=== PATIENT | female | born 1965 | race African-American/Black ===

== ENCOUNTER 2017-03-12 18:03 | Emergency (ER) | payer MEDICARE | END 2017-03-12 19:00 | disposition home or self-care (01) | LOC: ERS 18:03 | DX: M54.12 Radiculopathy, cervical region (principal); E11.9 Type 2 diabetes mellitus without complications; E03.9 Hypothyroidism, unspecified; E78.5 Hyperlipidemia, unspecified; I50.9 Heart failure, unspecified; F41.9 Anxiety disorder, unspecified; Z79.899 Other long term (current) drug therapy | CPT/HCPCS: 99283 ==

== ENCOUNTER 2018-07-01 07:27 | Day surgery (SDC) | payer MEDICARE, MEDICAID ==
[2018-06-30 10:56] VITALS: BMI 25.7
[2018-07-01] MEDS ORDERED: PROPOFOL 200 MG/20 ML VIAL ONE (10:08)
[2018-07-01] MEDS ORDERED: Lidocaine 1% PF 5 ML VIAL ONE (10:08)
--- NOTE | 2018-07-01 12:15 | OP ---
DATE OF PROCEDURE: 07/01/2018 PROCEDURE PERFORMED: Colonoscopy with biopsy. PREMEDICATION: Given by Anesthesiology Department. PREPROCEDURE DIAGNOSIS: Colon screening. POSTPROCEDURE DIAGNOSES: 1. Small sigmoid polyp, 3 mm, removed with forceps. 2. Otherwise, normal colon exam. PROCEDURE IN DETAIL: Written consent was obtained prior to procedure. After adequate sedation, rectal exam was performed and was normal. The endoscope was advanced to the cecum. The quality of the bowel prep was good. The cecum, ascending colon, hepatic flexure, transverse colon, splenic flexure, descending colon all appeared normal. In the sigmoid colon, a 3 mm sessile polyp was noted and was removed with biopsy forceps. The removal was complete and the polyp was retrieved. The sigmoid, rectal vault, including retroflexion was normal. The patient tolerated the procedure well. ASSESSMENT: 1. Normal colon exam. 2. Small sigmoid polyp, removed. PLAN: Await biopsy results. Job ID: [id number]
== END 2018-07-01 12:19 | disposition home or self-care (01) ==
LOC: SDC 07:27
PROVIDERS: ATTEND Internal Medicine Gastroenterology
PROC: 0DBN8ZX Excision of Sigmoid Colon, Via Natural or Artificial Opening Endoscopic, Diagnostic (ICD-10-PCS; principal; 2018-07-01)
DX: Z12.11 Encounter for screening for malignant neoplasm of colon (principal); K63.5 Polyp of colon; F41.9 Anxiety disorder, unspecified; E11.9 Type 2 diabetes mellitus without complications; E78.00 Pure hypercholesterolemia, unspecified; E89.0 Postprocedural hypothyroidism; Z79.82 Long term (current) use of aspirin; Z79.84 Long term (current) use of oral hypoglycemic drugs; Z79.899 Other long term (current) drug therapy; Z88.6 Allergy status to analgesic agent; Z88.8 Allergy status to other drugs, medicaments and biological substances; Z95.810 Presence of automatic (implantable) cardiac defibrillator
CPT/HCPCS: 88305; J2001; J2704

== ENCOUNTER 2018-11-19 16:51 | Emergency (ER) | payer MEDICARE, MEDICAID | END 2018-11-19 18:11 | disposition home or self-care (01) | LOC: ERS 16:51 | DX: R68.84 Jaw pain (principal); E11.9 Type 2 diabetes mellitus without complications; E03.9 Hypothyroidism, unspecified; E78.5 Hyperlipidemia, unspecified; I50.9 Heart failure, unspecified; F41.9 Anxiety disorder, unspecified; Z79.899 Other long term (current) drug therapy | CPT/HCPCS: 99283 ==

== ENCOUNTER 2019-07-21 12:57 | Emergency (ER) | payer MEDICARE, MEDICAID ==
[2019-07-21 13:53] LABS: #Basophils 0.1 thou/uL (0.0-0.2); #Eosinphils 0.3 thou/uL (0.0-0.7); #Lymphocytes 2.7 thou/uL (1.20-3.40); #Monocytes 0.6 thou/uL (0.11-0.59); %Basophils 1.6 % (0.0-1.0); %Eosinophils 3.5 % (0.0-10.0); %Lymphocytes 30.9 % (21.0-51.0); %Monocytes 7.2 % (0.0-10.0); %Neutrophils 56.9 % (42.0-75.0); Hemoglobin 12.8 g/dL (12.0-16.0); Mean Corpuscular HGB CONC 33.9 g/dL (32.0-36.0); Mean Corpuscular Hemoglobin 30.1 pg (27.0-31.0); Mean Corpuscular Volume 88.7 fL (78.0-98.0); Mean Platelet Volume 7.7 fL (7.4-10.4); Platelet Count 318 thou/uL (130-400); RBC Distribution Width 11.9 % (11.5-14.5); Red Blood Cell (RBC) Count 4.27 mill/uL (4.20-5.40); White Blood Cell (WBC) Count 8.7 thou/uL (4.8-10.8)
[2019-07-21 14:14] LABS: ALT (SGPT) 41 U/L (8-55); AST (SGOT) 33 U/L (5-34); Albumin 4.1 g/dL (3.5-5.0); Alkaline Phosphatase 99 U/L (40-110); Anion Gap 17 mmol/L (10-20); BUN (Urea Nitrogen) 13 mg/dL (9.8-20.1); Bilirubin, Total 0.3 mg/dL (0.2-1.2); Calc. Creatinine Clearance 0 mL/min (70-130); Calcium 9.6 mg/dL (7.8-10.44); Carbon Dioxide 23 mmol/L (22-29); Chloride 98 mmol/L (98-107); Estimated GFR-MDRD 77; Globulin 3.8 g/dL (2.4-3.5); Glucose 423 mg/dL (70-105); Potassium 4.1 mmol/L (3.5-5.1); Protein, Total 7.9 g/dL (6.0-8.3); Sodium 134 mmol/L (136-145)
[2019-07-21 14:39] LABS: Bacteria/HPF None Seen HPF (None Seen); Bilirubin Negative (Negative); Blood, Urine 3+ (Negative); Clarity Clear (Clear); Glucose, Urine (Dipstick) Greater than 1000 mg/dL (Negative); Leukocyte Negative Leu/uL (Negative); Nitrite Negative (Negative); Protein, Urine (Dipstick) 30 mg/dL (Neg-Trace); RBC/HPF Greater than 50 HPF (0-3); Squamous Epithelial None Seen HPF (0-3); Urobilinogen Normal mg/dL (Less than 2)
[2019-07-22 08:39] LABS: CO2 Tension (PvCO2) 15.9 mmHg (40.0-50.0)
[2019-07-22 08:40] LABS: Base Excess-Venous -2.3 mmol/L (-2.0 to 3.0); Bicarbonate (HCO3v) 16.4 mmol/L (22.0-28.0); Calcium, Ionized 0.73 mmol/L (See Comments:); Chloride 105 mmol/L (98-107); Potassium 4.1 mmol/L (3.5-5.1); T. Carbon Dioxide 16.8 mmol/L (22.0-28.0); vO2 Saturation-calc 99.9 % (60.0-85.0)
== END 2019-07-21 18:00 | disposition home or self-care (01) ==
LOC: ERS 12:57
DX: E11.65 Type 2 diabetes mellitus with hyperglycemia (principal); E03.9 Hypothyroidism, unspecified; E78.5 Hyperlipidemia, unspecified; I50.9 Heart failure, unspecified; F41.9 Anxiety disorder, unspecified; Z79.84 Long term (current) use of oral hypoglycemic drugs; Z79.891 Long term (current) use of opiate analgesic; Z79.899 Other long term (current) drug therapy
CPT/HCPCS: 36415; 36416; 80053; 81003; 81015; 82010; 82330; 82435; 82803; 84132; 84484; 85025; 93005; 96360; 96361

== ENCOUNTER 2019-07-28 11:22 | Outpatient (CLI) | payer MEDICARE, MEDICAID ==
--- NOTE | 2019-07-28 13:43 | MRI ---
MRI CERVICAL SPINE NONCONTRAST: Date: 07/28/2019 HISTORY: 53-year-old female with cervical radiculopathy, M54.12, cervicalgia. FINDINGS: Cervical spinal cord is normal in size and signal. Vertebral body heights are maintained. Loss of rose dosis with reversal of curvature. No major bone marrow signal abnormality. No high grade facet DJD at any level. No significant disc space narrowing at any level. There is no central spinal canal stenos is or neural foraminal stenosis at any level. At C5-6, sagittal images demonstrate right paracentral and right lateral small focal disc-osteophyte complex that encroaches upon the right anterior aspect of the spinal canal and broadly abuts the spin al cord. No evidence of krunal nerve root impingement. At C6-7, there are moderate size left uncinate process osteophytes that minimally encroach upon the p roximal aspect of the left neural foramen. Perivertebral spaces are unremarkable. IMPRESSION: 1. Reversal of cervical curvature, which could be due to muscle spasm. 2. Minimal degenerative changes at C5-6 and C6-7. 3. Otherwise negative. POS: [facility]
== END 2019-07-28 11:23 | disposition home or self-care (01) ==
LOC: MRI 11:22
PROVIDERS: ATTEND Neurological Surgery
DX: M47.22 Other spondylosis with radiculopathy, cervical region (principal); M43.9 Deforming dorsopathy, unspecified
CPT/HCPCS: 72141

== ENCOUNTER 2019-08-11 13:58 | Outpatient (CLI) | payer MEDICARE, MEDICAID | END 2019-08-11 13:59 | disposition home or self-care (01) | LOC: DTY/OP 13:58 | PROVIDERS: ATTEND Family Medicine | DX: E11.9 Type 2 diabetes mellitus without complications (principal) | CPT/HCPCS: 97802 ==

== ENCOUNTER 2019-11-29 06:26 | Outpatient (CLI) | payer MEDICARE, MEDICAID, OTHER ==
[2019-11-29 13:50] LABS: BHCG - Serum Negative (NEGATIVE); Pregs Control Background? CLEAR/WHITE (CLR/WHITE); Pregs Control Bar Appear? YES (CONTROL BAR)
[2019-11-30 12:18] LABS: SARS-CoV-2 MS2 Positive; SARS-CoV-2 N Gene Negative; SARS-CoV-2 S Gene Negative; SARS-CoV-2 orf1ab Negative
--- NOTE | 2019-12-01 18:00 | EKG ---
Test Reason : Blood Pressure : / mmHG Vent. Rate : 058 BPM Atrial Rate : 058 BPM P-R Int : 148 ms QRS Dur : 080 ms QT Int : 412 ms P-R-T Axes : 036 025 014 degrees QTc Int : 404 ms Sinus bradycardia Nonspecific T wave abnormality Abnormal ECG When compared with ECG of 21-JUL-2019 15:38, Nonspecific T wave abnormality, worse in Lateral leads Confirmed by BRANDI BERKOWITZ (2) on 12/01/2019 6:00:16 PM Referred By: ZANE Confirmed By:BRANDI BERKOWITZ
== END 2019-11-29 06:27 | disposition home or self-care (01) ==
LOC: LABBT 06:26
PROVIDERS: ATTEND Otolaryngology Plastic Surgery within the Head & Neck
DX: Z01.818 Encounter for other preprocedural examination (principal); Z11.59 Encounter for screening for other viral diseases; J32.9 Chronic sinusitis, unspecified; J30.9 Allergic rhinitis, unspecified; J34.3 Hypertrophy of nasal turbinates; J34.2 Deviated nasal septum; J34.89 Other specified disorders of nose and nasal sinuses; M95.0 Acquired deformity of nose
CPT/HCPCS: 84703; 85014; U0003; 87635; 93005; 93010

== ENCOUNTER 2019-12-23 10:25 | Outpatient (CLI) | payer MEDICARE, MEDICAID ==
--- NOTE | 2019-12-23 13:18 | MMO ---
Bilateral MAMMO Bilat Screen [facility]. CLINICAL HISTORY: Patient is 54 years old and is seen for screening. The patient has no family history of breast cancer. The patient has no personal history of cancer. VIEWS: The views performed were: bilateral craniocaudal with tomosynthesis; bilateral mediolateral oblique with tomosynthesis; and left mediolateral oblique. FILMS COMPARED: The present examination has been compared to prior imaging studies performed at [facility] on 02/15/2008, 03/12/2013 and 12/25/2016. This study has been interpreted with the assistance of computer-aided detection. MAMMOGRAM FINDINGS: The breasts are extremely dense, which may lower the sensitivity of mammography. There are no suspicious masses, suspicious calcifications, or new areas of architectural distortion. IMPRESSION: THERE IS NO MAMMOGRAPHIC EVIDENCE OF MALIGNANCY. A ROUTINE FOLLOW-UP MAMMOGRAM IN 1 YEAR IS RECOMMENDED. THE RESULTS OF THIS EXAM WERE SENT TO THE PATIENT. ACR BI-RADS Category 1 - Negative MAMMOGRAPHY NOTE: 1. A negative mammogram report should not delay a biopsy if a dominant of clinically suspicious mass is present. 2. Approximately 10% to 15% of breast cancers are not detected by mammography. 3. Adenosis and dense breasts may obscure an underlying neoplasm. Reported by: PRIYANKA FAROOQ MD Electonically Signed: [id number]
== END 2019-12-23 10:26 | disposition home or self-care (01) ==
LOC: BICMAMMO 10:25
PROVIDERS: ATTEND Family Medicine
DX: Z12.31 Encounter for screening mammogram for malignant neoplasm of breast (principal)
CPT/HCPCS: 77063; 77067

== ENCOUNTER 2020-01-21 07:21 | Outpatient (CLI) | payer MEDICARE, MEDICAID, OTHER ==
[2020-01-21 10:26] LABS: Hemoglobin 12.6 g/dL (12.0-16.0); Mean Corpuscular Volume 93.9 fL (78.0-98.0); Platelet Count 325 thou/uL (130-400); RBC Distribution Width 12.2 % (11.5-14.5); Red Blood Cell (RBC) Count 4.06 mill/uL (4.20-5.40); White Blood Cell (WBC) Count 10.3 thou/uL (4.8-10.8)
[2020-01-21 12:57] LABS: Anion Gap 14 mmol/L (10-20); BUN (Urea Nitrogen) 11 mg/dL (9.8-20.1); Calc. Creatinine Clearance 0 mL/min (70-130); Calcium 9.2 mg/dL (7.8-10.44); Carbon Dioxide 24 mmol/L (22-29); Chloride 105 mmol/L (98-107); Estimated GFR-MDRD Greater than 90; Glucose 165 mg/dL (70-105); Sodium 139 mmol/L (136-145)
--- NOTE | 2020-01-21 16:45 | EKG ---
Test Reason : PREOP Blood Pressure : / mmHG Vent. Rate : 060 BPM Atrial Rate : 060 BPM P-R Int : 156 ms QRS Dur : 082 ms QT Int : 390 ms P-R-T Axes : 056 056 024 degrees QTc Int : 390 ms Normal sinus rhythm Low voltage QRS Nonspecific T wave abnormality Abnormal ECG No previous ECGs available Confirmed by DR. Flory MARTÍNEZ ([id number]) on 01/21/2020 4:45:26 PM Referred By: Velasquez DEGROOT Confirmed By:DR. Flory MARTÍNEZ
[2020-01-21 16:59] LABS: SARS-CoV-2 MS2 Positive; SARS-CoV-2 N Gene Negative; SARS-CoV-2 S Gene Negative; SARS-CoV-2 by NAA Not Detected (NotDetected); SARS-CoV-2 orf1ab Negative
== END 2020-01-21 07:22 | disposition home or self-care (01) ==
LOC: LABBT 07:21
PROVIDERS: ATTEND Otolaryngology Plastic Surgery within the Head & Neck
DX: Z01.818 Encounter for other preprocedural examination (principal); Z20.828 Contact with and (suspected) exposure to other viral communicable diseases; J32.9 Chronic sinusitis, unspecified; J30.9 Allergic rhinitis, unspecified; J34.3 Hypertrophy of nasal turbinates; J34.2 Deviated nasal septum; J34.89 Other specified disorders of nose and nasal sinuses; M95.0 Acquired deformity of nose
CPT/HCPCS: 80048; 85027; 93005; U0003; 87635; 93010

== ENCOUNTER 2020-01-26 06:19 | Day surgery (SDC) | payer MEDICARE, MEDICAID ==
[2020-01-20 13:17] VITALS: BMI 26.6
[2020-01-26] MEDS ORDERED: AFRIN NASAL MIST 15 ML BOT ONE ×2 (06:58→08:08)
[2020-01-26] MEDS ORDERED: Lidocaine 1% w/Epinephrine 1:100K 20 ML VIAL ONE (08:08)
[2020-01-26] MEDS ORDERED: Bacitracin Zinc Ointment 30 gm TUBE ONE (08:08)
[2020-01-26] MEDS ORDERED: Midazolam HCl 2 mg/2 ml Vial ONE (08:09)
[2020-01-26] MEDS ORDERED: Fentanyl 100 MCG/2 ML VIAL ONE (08:09)
[2020-01-26] MEDS ORDERED: hydrALAZINE 20 MG/ML VIAL ONE (10:08)
[2020-01-26] MEDS ORDERED: PHENYLEPHRINE-NS 100 MCG/ML 10 ML SYRINGE ONE (10:09)
[2020-01-26] MEDS ORDERED: EPHEDRINE 25 MG/5 ML SYRINGE ONE (10:09)
[2020-01-26] MEDS ORDERED: PROPOFOL 200 MG/20 ML VIAL ONE (10:09)
[2020-01-26] MEDS ORDERED: Dexamethasone 20 MG/5 ML VIAL ONE (10:09)
[2020-01-26] MEDS ORDERED: Ondansetron PF 4 MG/2 ML Vial ONE (10:09)
[2020-01-26] MEDS ORDERED: Lidocaine 1% PF 5 ML VIAL ONE (10:09)
[2020-01-26] MEDS ORDERED: Morphine 2 MG/ML VIAL ONE ×2 (10:40→11:52)
[2020-01-26] MEDS ORDERED: HYDROcodone/Acetaminophen 5/325 mg Tablet ONE (11:31)
--- NOTE | 2020-01-27 10:59 | OP ---
DATE OF PROCEDURE: 01/26/2020 PREOPERATIVE DIAGNOSES: 1. Nasal septal deviation. 2. Bilateral inferior turbinate hypertrophy. 3. Nasal obstruction. 4. Bilateral nasal valve collapse. PROCEDURES PERFORMED: 1. Nasal septoplasty. 2. Bilateral repair of nasal valve defect. 3. Bilateral inferior turbinate submucosal resection. ESTIMATED BLOOD LOSS: 20 mL. COMPLICATIONS: None. ANESTHESIA: GETA. DESCRIPTION OF PROCEDURE: The patient was taken to the operating room and placed supine on the table. General endotracheal anesthesia was obtained by the anesthesia staff. Then 1% lidocaine with 1:100,000 epinephrine was injected into the nasal septum as well as the inferior turbinates. The patient was prepped and draped in standard surgical fashion. The Afrin pledgets were then removed. A Woo incision was made on the left nasal septum. Submucoperichondrial dissection was performed bilaterally of the deviated portions of the septum, which included the maxillary crest and the crest deviation, as well as the mid portion of the septum. Cartilage and bony deviation were removed, leaving a generous caudal and dorsal strut. Any straight pieces of cartilage were then placed within the cartilage press, pressed, straightened, and then placed between the mucoperichondrial flaps, which were then closed using a 4-0 gut stitch. The inferior turbinates were then punctured with the submucosal Coblation machine, and 3 separate coblations were delivered to the anterior inferior portion of the inferior turbinates. Following this, the nasal cavity was irrigated. All debris was removed. An orogastric tube was placed. Gastric contents and Huizar splints were then placed in the nasal cavity and sutured with a 3-0 silk stitch. Following this, a small incision was made in a transcartilaginous approach to the lateral nasal wall. A subperiosteal pocket was elevated as well as a submucoperichondrial pocket with skin hooks and microdissection scissors. graft was then placed in pocket and was secured using a 5-0 chromic gut stitch. The incision was closed using a 5-0 chromic gut stitch bilaterally. The patient tolerated the procedure well. Job ID: [id number]
== END 2020-01-26 12:30 | disposition home or self-care (01) ==
LOC: SDC 06:19
PROVIDERS: ATTEND Otolaryngology Plastic Surgery within the Head & Neck
PROC: 09BM8ZZ Excision of Nasal Septum, Via Natural or Artificial Opening Endoscopic (ICD-10-PCS; principal; 2020-01-26)
PROC: 09BL8ZZ Excision of Nasal Turbinate, Via Natural or Artificial Opening Endoscopic (ICD-10-PCS; 2020-01-26)
DX: J34.2 Deviated nasal septum (principal); J34.3 Hypertrophy of nasal turbinates; J34.89 Other specified disorders of nose and nasal sinuses; M95.0 Acquired deformity of nose; J32.9 Chronic sinusitis, unspecified; J30.9 Allergic rhinitis, unspecified; I10 Essential (primary) hypertension; D64.9 Anemia, unspecified; K21.9 Gastro-esophageal reflux disease without esophagitis; Z79.82 Long term (current) use of aspirin; Z79.84 Long term (current) use of oral hypoglycemic drugs; Z79.899 Other long term (current) drug therapy
CPT/HCPCS: 30140; 30520; 30999; 82962; J2270; 36416; J0360; J1100; J2250; J2405; J2704; J3010

== ENCOUNTER 2020-04-20 07:56 | Outpatient (CLI) | payer MEDICARE, MEDICAID ==
--- NOTE | 2020-04-20 11:25 | MRI ---
MRI LUMBAR SPINE WITHOUT CONTRAST: Date: 04/20/2020 INDICATION: Lumbar radiculopathy. Low back pain. Comparison made to CT lumbar spine dated 07/16/2016. FINDINGS: Lumbar vertebra maintain normal height and alignment. Vertebral body signal is normal. Disc spaces are preserved and appear stable from the CT of 2017. L1-2: No significant disc bulge or protrusion. No central canal or foraminal stenosis. L2-3: No significant disc bulge. Mild facet arthrosis. No central canal or foraminal stenosis. L3-4: Very mild disc bulge abuts and mildly flattens the anterior thecal sac. Mild facet arthrosis. Posterior epidural fat is present. No significant central canal or foraminal stenosis. L4-5: Broad based disc bulge flattens the thecal sac. Mild to moderate facet arthrosis and hypertrop hy. These changes result in mild central canal stenosis. Right foraminal stenosis due to asymmetric d isc and osteophyte complex extending into the right foraminal zone, possibly contacting the exiting r ight L4 nerve root. L5-S1: Broad based disc bulge abuts the thecal sac. Mild facet hypertrophy. Congenitally smaller the kendall sac at this level. No significant central canal stenosis. No evidence of foraminal stenosis. IMPRESSION: 1. Disc bulge seen at L4-5 and L5-S1 as described above. 2. Mild central canal stenosis and right foraminal stenosis at L4-5 as described. POS: [facility]
== END 2020-04-20 07:57 | disposition home or self-care (01) ==
LOC: MRI 07:56
DX: M54.16 Radiculopathy, lumbar region (principal); M48.8X6 Other specified spondylopathies, lumbar region; M48.8X7 Other specified spondylopathies, lumbosacral region; M48.061 Spinal stenosis, lumbar region without neurogenic claudication
CPT/HCPCS: 72148

== ENCOUNTER 2020-10-28 20:02 | Emergency (ER) | payer MEDICARE, OTHER ==
[2020-10-28] MEDS ORDERED: Dexamethasone 10 MG/ML VIAL ONE (20:21)
== END 2020-10-28 20:48 | disposition home or self-care (01) ==
LOC: ERS 20:02
DX: J30.9 Allergic rhinitis, unspecified (principal); I48.91 Unspecified atrial fibrillation; E11.9 Type 2 diabetes mellitus without complications; E03.9 Hypothyroidism, unspecified; E78.5 Hyperlipidemia, unspecified; I11.0 Hypertensive heart disease with heart failure; I50.9 Heart failure, unspecified; Z79.899 Other long term (current) drug therapy; Z79.891 Long term (current) use of opiate analgesic
CPT/HCPCS: 96372; 99283; J1100

== ENCOUNTER 2020-12-20 09:16 | Outpatient (CLI) | payer MEDICARE, MEDICAID | END 2020-12-20 09:17 | disposition home or self-care (01) | LOC: CT 09:16 | PROVIDERS: ATTEND Otolaryngology Plastic Surgery within the Head & Neck | DX: J01.90 Acute sinusitis, unspecified (principal) ==

== ENCOUNTER 2021-02-12 01:32 | Emergency (ER) | payer MEDICARE, OTHER ==
[2021-02-12] MEDS ORDERED: Dexamethasone 10 MG/ML VIAL ONE (02:03)
[2021-02-12] MEDS ORDERED: Albuterol 200 PUFF (6.7GM INHALER) ONE (02:03)
[2021-02-12 13:46] LABS: SARS-CoV-2 PCR by NAA Not Detected (NotDetected)
== END 2021-02-12 02:27 | disposition home or self-care (01) ==
LOC: ERS 01:32
DX: U07.1 COVID-19 (principal); J12.82 Pneumonia due to coronavirus disease 2019; I48.91 Unspecified atrial fibrillation; E11.9 Type 2 diabetes mellitus without complications; E03.9 Hypothyroidism, unspecified; E78.5 Hyperlipidemia, unspecified; I11.0 Hypertensive heart disease with heart failure; I50.9 Heart failure, unspecified
CPT/HCPCS: 96372; 99283; U0003; U0005; J1100

== ENCOUNTER 2021-03-01 02:23 | Emergency (ER) | payer MEDICARE, OTHER ==
[2021-03-01] MEDS ORDERED: Dexamethasone 10 MG/ML VIAL ONE (03:13)
[2021-03-01 03:45] LABS: Hemoglobin 13.4 g/dL (12.0-16.0); Mean Corpuscular HGB CONC 32.7 g/dL (32.0-36.0); Mean Corpuscular Hemoglobin 31.6 pg (27.0-31.0); Mean Corpuscular Volume 96.7 fL (78.0-98.0); RBC Distribution Width 12.2 % (11.5-14.5); Red Blood Cell (RBC) Count 4.24 mill/uL (4.20-5.40); White Blood Cell (WBC) Count 11.9 thou/uL (4.8-10.8)
[2021-03-01 04:02] LABS: #Basophils 0.1 thou/uL (0.0-0.2); #Eosinphils 1.3 thou/uL (0.0-0.7); #Lymphocytes 3.1 thou/uL (1.20-3.40); #Monocytes 0.8 thou/uL (0.11-0.59); #Neutrophils 6.6 thou/uL (1.40-6.50); %Basophils 0.7 % (0.0-1.0); %Eosinophils 10.5 % (0.0-10.0); %Lymphocytes 26.1 % (21.0-51.0); %Neutrophils 55.7 % (42.0-75.0); Mean Platelet Volume 8.2 fL (7.4-10.4); Platelet Count 325 thou/uL (130-400); Platelet Morphology Comment Appears Adequate
[2021-03-01 04:48] LABS: ALT (SGPT) 20 U/L (8-55); AST (SGOT) 18 U/L (5-34); Albumin 3.9 g/dL (3.5-5.0); Alkaline Phosphatase 190 U/L (40-110); Anion Gap 12 mmol/L (10-20); BUN (Urea Nitrogen) 14 mg/dL (9.8-20.1); Bilirubin, Total 0.2 mg/dL (0.2-1.2); Calc. Creatinine Clearance 0 mL/min (70-130); Calcium 9.3 mg/dL (7.8-10.44); Carbon Dioxide 24 mmol/L (22-29); Chloride 107 mmol/L (98-107); Globulin 3.4 g/dL (2.4-3.5); Glucose 135 mg/dL (70-105); Potassium 3.7 mmol/L (3.5-5.1); Protein, Total 7.3 g/dL (6.0-8.3); Sodium 139 mmol/L (136-145)
== END 2021-03-01 05:24 | disposition home or self-care (01) ==
LOC: ERS 02:23
DX: R06.2 Wheezing (principal); E11.9 Type 2 diabetes mellitus without complications; I48.91 Unspecified atrial fibrillation; I10 Essential (primary) hypertension; E03.9 Hypothyroidism, unspecified; E78.5 Hyperlipidemia, unspecified; I50.9 Heart failure, unspecified
CPT/HCPCS: 36415; 71045; 80053; 85025; 94640; 96374; J1100; J7620

== ENCOUNTER 2021-03-22 07:57 | Outpatient (CLI) | payer MEDICARE, OTHER | END 2021-03-22 07:58 | disposition home or self-care (01) | LOC: BICRAD 07:57 | PROVIDERS: ATTEND Family Medicine | DX: R05.9 Cough, unspecified (principal) | CPT/HCPCS: 71046 ==

== ENCOUNTER 2021-03-30 15:43 | Emergency (ER) | payer MEDICARE, MEDICAID ==
[2021-03-30] MEDS ORDERED: Dexamethasone 4 MG TAB ONE (16:11)
[2021-03-30 16:47] LABS: #Basophils 0.1 thou/uL (0.0-0.2); #Eosinphils 2.2 thou/uL (0.0-0.7); #Lymphocytes 3.3 thou/uL (1.20-3.40); #Monocytes 0.7 thou/uL (0.11-0.59); #Neutrophils 4.5 thou/uL (1.40-6.50); %Basophils 1.2 % (0.0-1.0); %Eosinophils 20.2 % (0.0-10.0); %Lymphocytes 30.7 % (21.0-51.0); %Monocytes 6.4 % (0.0-10.0); %Neutrophils 41.5 % (42.0-75.0); Hemoglobin 13.4 g/dL (12.0-16.0); Mean Corpuscular HGB CONC 32.7 g/dL (32.0-36.0); Mean Corpuscular Hemoglobin 31.4 pg (27.0-31.0); Mean Corpuscular Volume 96.3 fL (78.0-98.0); Mean Platelet Volume 6.9 fL (7.4-10.4); Platelet Count 337 thou/uL (130-400); RBC Distribution Width 12.3 % (11.5-14.5); Red Blood Cell (RBC) Count 4.26 mill/uL (4.20-5.40); White Blood Cell (WBC) Count 10.8 thou/uL (4.8-10.8)
[2021-03-30 17:10] LABS: Anion Gap 13 mmol/L (10-20); BUN (Urea Nitrogen) 19 mg/dL (9.8-20.1); Calc. Creatinine Clearance 0 mL/min (70-130); Calcium 9.6 mg/dL (7.8-10.44); Carbon Dioxide 25 mmol/L (22-29); Chloride 105 mmol/L (98-107); Glucose 88 mg/dL (70-105); Potassium 3.8 mmol/L (3.5-5.1); Sodium 139 mmol/L (136-145)
[2021-03-30] MEDS ORDERED: HYDROmorphone 0.5 MG/0.5 ML SYRINGE ONE ×2 (17:59→18:02)
== END 2021-03-30 18:30 | disposition home or self-care (01) ==
LOC: ERS 15:43
DX: D72.10 Eosinophilia, unspecified (principal); R05.9 Cough, unspecified; I48.91 Unspecified atrial fibrillation; I11.0 Hypertensive heart disease with heart failure; I50.9 Heart failure, unspecified; E11.9 Type 2 diabetes mellitus without complications; E03.9 Hypothyroidism, unspecified; E78.5 Hyperlipidemia, unspecified; Z79.899 Other long term (current) drug therapy
CPT/HCPCS: 36415; 71046; 80048; 83880; 84484; 85025; 93005; 94640; J1170; J8540

== ENCOUNTER 2021-04-02 10:46 | Outpatient (CLI) | payer MEDICARE, MEDICAID | END 2021-04-02 10:47 | disposition home or self-care (01) | LOC: CTENTCT 10:46 | PROVIDERS: ATTEND Otolaryngology Plastic Surgery within the Head & Neck | DX: J32.9 Chronic sinusitis, unspecified (principal) | CPT/HCPCS: 70486 ==

== ENCOUNTER 2021-06-16 11:42 | Emergency (ER) | payer MEDICARE, OTHER, MEDICAID ==
[2021-06-16 18:41] LABS: SARS-CoV-2 PCR by NAA Not Detected (NotDetected)
== END 2021-06-16 14:31 | disposition home or self-care (01) ==
LOC: ERS 11:42
DX: J06.9 Acute upper respiratory infection, unspecified (principal); J02.9 Acute pharyngitis, unspecified; Z20.822 Contact with and (suspected) exposure to COVID-19
CPT/HCPCS: 99283; U0003; U0005

== ENCOUNTER 2021-07-08 17:16 | Emergency (ER) | payer MEDICARE, OTHER | END 2021-07-08 19:10 | disposition home or self-care (01) | LOC: ERS 17:16 | DX: J01.10 Acute frontal sinusitis, unspecified (principal); J01.00 Acute maxillary sinusitis, unspecified; I10 Essential (primary) hypertension; E78.00 Pure hypercholesterolemia, unspecified; E11.9 Type 2 diabetes mellitus without complications; E03.9 Hypothyroidism, unspecified; J45.909 Unspecified asthma, uncomplicated | CPT/HCPCS: 71045 ==

== ENCOUNTER 2021-07-11 09:53 | Outpatient (CLI) | payer MEDICARE, OTHER | END 2021-07-11 09:54 | disposition home or self-care (01) | LOC: BICMAMMO 09:53 | PROVIDERS: ATTEND Family Medicine | DX: Z12.31 Encounter for screening mammogram for malignant neoplasm of breast (principal) | CPT/HCPCS: 77063; 77067 ==

== ENCOUNTER 2021-07-26 11:35 | Outpatient (CLI) | payer MEDICARE, MEDICAID | END 2021-07-26 11:36 | disposition home or self-care (01) | LOC: CT 11:35 | PROVIDERS: ATTEND Physician Assistant Medical | DX: R10.30 Lower abdominal pain, unspecified (principal); K21.9 Gastro-esophageal reflux disease without esophagitis; K59.03 Drug induced constipation; R63.4 Abnormal weight loss; E11.65 Type 2 diabetes mellitus with hyperglycemia; K80.20 Calculus of gallbladder without cholecystitis without obstruction | CPT/HCPCS: 74177 ==

== ENCOUNTER 2021-09-05 18:04 | Emergency (ER) | payer MEDICARE, MEDICAID ==
[2021-09-05] MEDS ORDERED: Acetaminophen 500 MG TAB ONE (18:45)
[2021-09-05] MEDS ORDERED: Dexamethasone 4 MG TAB ONE (20:01)
[2021-09-05 20:27] LABS: SARS-CoV-2 NAA Rapid Test Not Detected (NotDetected)
== END 2021-09-05 20:01 | disposition home or self-care (01) ==
LOC: ERS 18:04
DX: J06.9 Acute upper respiratory infection, unspecified (principal); Z20.822 Contact with and (suspected) exposure to COVID-19; E11.9 Type 2 diabetes mellitus without complications; E03.9 Hypothyroidism, unspecified; I10 Essential (primary) hypertension; E78.00 Pure hypercholesterolemia, unspecified
CPT/HCPCS: 71045; 80048; 87804 ×2; U0002; 36415; J8540

== ENCOUNTER 2021-10-07 19:38 | Emergency (ER) | payer MEDICARE, MEDICAID ==
[2021-10-07 20:20] LABS: #Basophils 0.2 thou/uL (0.0-0.2); #Eosinphils 0.3 thou/uL (0.0-0.7); #Lymphocytes 4.4 thou/uL (1.20-3.40); #Monocytes 0.9 thou/uL (0.11-0.59); #Neutrophils 3.3 thou/uL (1.40-6.50); %Basophils 2.5 % (0.0-1.0); %Eosinophils 2.8 % (0.0-10.0); %Lymphocytes 48.5 % (21.0-51.0); %Monocytes 9.5 % (0.0-10.0); %Neutrophils 36.7 % (42.0-75.0); Hemoglobin 12.2 g/dL (12.0-16.0); Mean Corpuscular HGB CONC 33.8 g/dL (32.0-36.0); Mean Corpuscular Hemoglobin 34.3 pg (27.0-31.0); Mean Platelet Volume 6.5 fL (7.4-10.4); Platelet Count 310 thou/uL (130-400); Red Blood Cell (RBC) Count 3.55 mill/uL (4.20-5.40); White Blood Cell (WBC) Count 9.1 thou/uL (4.8-10.8)
[2021-10-07 20:53] LABS: ALT (SGPT) 20 U/L (8-55); AST (SGOT) 17 U/L (5-34); Albumin 4.1 g/dL (3.5-5.0); Alkaline Phosphatase 114 U/L (40-110); Anion Gap 14 mmol/L (10-20); BUN (Urea Nitrogen) 18 mg/dL (9.8-20.1); Bilirubin, Total 0.2 mg/dL (0.2-1.2); Calc. Creatinine Clearance 0 mL/min (70-130); Carbon Dioxide 22 mmol/L (22-29); Chloride 105 mmol/L (98-107); Globulin 3.1 g/dL (2.4-3.5); Glucose 101 mg/dL (70-105); Lipase 82 U/L (8-78); Magnesium 2.7 mg/dL (1.6-2.6); Potassium 3.7 mmol/L (3.5-5.1); Protein, Total 7.2 g/dL (6.0-8.3); Sodium 137 mmol/L (136-145)
== END 2021-10-07 22:03 | disposition home or self-care (01) ==
LOC: ERS 19:38
DX: R42 Dizziness and giddiness (principal); I10 Essential (primary) hypertension; E11.9 Type 2 diabetes mellitus without complications
CPT/HCPCS: 36415; 71045; 80053; 83690; 83735; 84484; 85025; 93005

== ENCOUNTER 2021-10-18 08:23 | Outpatient (CLI) | payer MEDICARE, MEDICAID | END 2021-10-18 08:24 | disposition home or self-care (01) | LOC: NM 08:23 | PROVIDERS: ATTEND Physician Assistant Medical | DX: R63.4 Abnormal weight loss (principal); K30 Functional dyspepsia | CPT/HCPCS: 78264; A9541 ==

== ENCOUNTER 2022-01-31 18:13 | Inpatient (IN) | payer MEDICARE, MEDICAID ==
[2022-01-31 19:05] LABS: Mean Corpuscular HGB CONC 34.5 g/dL (32.0-36.0); Mean Corpuscular Hemoglobin 34.2 pg (27.0-31.0); Mean Corpuscular Volume 99.1 fL (78.0-98.0); Mean Platelet Volume 7.3 fL (7.4-10.4); Platelet Count 320 thou/uL (130-400); RBC Distribution Width 12.5 % (11.5-14.5); Red Blood Cell (RBC) Count 3.81 mill/uL (4.20-5.40); White Blood Cell (WBC) Count 10.5 thou/uL (4.8-10.8)
[2022-01-31 19:26] LABS: ALT (SGPT) 24 U/L (8-55); AST (SGOT) 24 U/L (5-34); Albumin 4.4 g/dL (3.5-5.0); Alkaline Phosphatase 119 U/L (40-110); Anion Gap 19 mmol/L (10-20); BUN (Urea Nitrogen) 50 mg/dL (9.8-20.1); Bilirubin, Total 0.2 mg/dL (0.2-1.2); Calc. Creatinine Clearance 0 mL/min (70-130); Calcium 9.2 mg/dL (7.8-10.44); Carbon Dioxide 31 mmol/L (22-29); Chloride 93 mmol/L (98-107); Estimated GFR 34; Globulin 3.5 g/dL (2.4-3.5); Glucose 103 mg/dL (70-105); Protein, Total 7.9 g/dL (6.0-8.3)
[2022-01-31 19:27] LABS: Eosinophils 4 % (0-10); Lymphocytes 59 % (21-51); MDiff Complete? YES; Monocytes 1 % (0-10); Neutrophil 35 % (42-75); Platelet Morphology Comment Appears Adequate; RBC Morphology Normal
[2022-01-31 19:45] LABS: Potassium 2.6 mmol/L (3.5-5.1); Sodium 140 mmol/L (136-145)
[2022-01-31] MEDS ORDERED: Potassium Chloride 20 MEQ/100 ML PREMIX BAG ONE (21:00)
[2022-01-31] MEDS ORDERED: Potassium Chloride 20 MEQ TAB ONE (21:00)
[2022-01-31 23:43] LABS: Bilirubin Negative (Negative); Blood, Urine Negative (Negative); Clarity Clear (Clear); Glucose, Urine (Dipstick) Normal (Negative); Ketone, Urine Negative (Negative); Leukocyte 75 Leu/uL (Negative); Nitrite Negative (Negative); Protein, Urine (Dipstick) Negative (Neg-Trace); Specific Gravity, Urine 1.009 (1.002-1.036); Urobilinogen Normal mg/dL (Less than 2)
[2022-01-31] MEDS ORDERED: Sodium Chloride 0.9% 500 ML IV SCH (23:45)
[2022-01-31 23:52] LABS: Bacteria/HPF Rare-Few HPF (None Seen); RBC/HPF 0-3 HPF (0-3); Squamous Epithelial 0-3 HPF (0-3); WBC/HPF 0-3 HPF (0-3)
[2022-01-31] MEDS ORDERED: Bisacodyl 5 MG TAB PO PRN (23:59)
[2022-01-31] MEDS ORDERED: Senokot S 8.6-50 MG TAB PO PRN (23:59)
[2022-01-31] MEDS ORDERED: Acetaminophen 650 MG Suppository PR PRN (23:59)
[2022-01-31] MEDS ORDERED: Guaifenesin DM 100-10/5 ML UDCUP PO PRN (23:59)
[2022-01-31] MEDS ORDERED: Ondansetron ODT 4 MG TAB PO PRN (23:59)
[2022-01-31] MEDS ORDERED: Ondansetron PF 4 MG/2 ML Vial IVP PRN (23:59)
[2022-01-31] MEDS ORDERED: Acetaminophen 325 MG TAB PO PRN (23:59)
[2022-02-01] MEDS ORDERED: Potassium Chloride 20 MEQ TAB PO SCH ×2 (00:15→23:30)
[2022-02-01] MEDS ORDERED: Dextrose 50% Abboject 50 ML SYRINGE SLOW IVP PRN (00:16)
[2022-02-01] MEDS ORDERED: HumaLOG 300 UNITS/3 ML VIAL SC PRN ×2 (00:16)
[2022-02-01] MEDS ORDERED: Dextrose 5% in Water 1,000 ML IV PRN (00:16)
[2022-02-01] MEDS ORDERED: hydrALAZINE 20 MG/ML VIAL SLOW IVP PRN (00:18)
[2022-02-01 01:53] VITALS: BMI 23.4
[2022-02-01] MEDS ORDERED: tiZANidine HCl 4 MG TAB PO PRN (04:26)
[2022-02-01 05:20] LABS: Anion Gap 15 mmol/L (10-20); BUN (Urea Nitrogen) 42 mg/dL (9.8-20.1); Calc. Creatinine Clearance 58 mL/min (70-130); Calcium 9.2 mg/dL (7.8-10.44); Carbon Dioxide 31 mmol/L (22-29); Chloride 99 mmol/L (98-107); Estimated GFR 61; Glucose 87 mg/dL (70-105); Magnesium 2.4 mg/dL (1.6-2.6); Sodium 142 mmol/L (136-145)
[2022-02-01 05:23] LABS: Potassium 2.8 mmol/L (3.5-5.1)
[2022-02-01] MEDS ORDERED: Electrolyte Replacement Protocol FS PRN (06:15)
[2022-02-01] MEDS: Potassium Chloride 20 MEQ TAB PO SCH ×2 (06:36→10:05)
[2022-02-01] MEDS: Levothyroxine Sodium 25 MCG TAB PO SCH ×2 (06:36→06:38)
[2022-02-01] MEDS: Mometasone/Formoterol 200/5 60 PUFF INH SCH ×2 (07:20→19:18)
[2022-02-01] MEDS ORDERED: Carvedilol 6.25 MG TAB PO SCH ×2 (09:00)
[2022-02-01] MEDS ORDERED: Insulin Glargine 30 UNITS/0.3 ML VIAL SC SCH (09:00)
[2022-02-01] MEDS ORDERED: Sacubitril 49 MG/Valsartan 51 MG TABLET PO SCH ×3 (09:00→21:00)
[2022-02-01] MEDS: busPIRone HCl 5 MG TAB PO SCH ×2 (10:00→20:43)
[2022-02-01] MEDS: Famotidine 20 MG TAB PO SCH (10:01)
[2022-02-01] MEDS: Carvedilol 6.25 MG TAB PO SCH ×2 (10:01→20:46)
[2022-02-01] MEDS: Fluticasone Propionate Nasal Spray 16 gm Bottle NASAL SCH (10:01)
[2022-02-01] MEDS: Loratadine 10 MG TAB PO SCH (10:02)
[2022-02-01] MEDS: Pregabalin 75 MG CAP PO SCH ×3 (10:02→20:47)
[2022-02-01] MEDS: Montelukast Sodium 10 mg Tablet PO SCH (10:02)
[2022-02-01] MEDS: Topiramate 25 MG TAB PO SCH ×2 (10:03→20:49)
[2022-02-01] MEDS: HYDROcodone/Acetaminophen 10/325 mg Tablet PO PRN (13:26)
[2022-02-01 18:11] LABS: Potassium 3.5 mmol/L (3.5-5.1)
[2022-02-01] MEDS: Enoxaparin Sodium 40 MG/0.4 ML SYRINGE SC SCH (20:46)
[2022-02-01] MEDS: traZODone HCl 50 MG TAB PO SCH (20:49)
[2022-02-01] MEDS ORDERED: Atorvastatin Calcium 40 MG TAB PO SCH (21:00)
[2022-02-02 05:47] LABS: Anion Gap 16 mmol/L (10-20); BUN (Urea Nitrogen) 29 mg/dL (9.8-20.1); Calc. Creatinine Clearance 79 mL/min (70-130); Calcium 9.6 mg/dL (7.8-10.44); Carbon Dioxide 27 mmol/L (22-29); Chloride 99 mmol/L (98-107); Estimated GFR 88; Glucose 100 mg/dL (70-105); Potassium 3.5 mmol/L (3.5-5.1); Sodium 138 mmol/L (136-145)
[2022-02-02] MEDS: Levothyroxine Sodium 25 MCG TAB PO SCH (06:37)
[2022-02-02] MEDS: Mometasone/Formoterol 200/5 60 PUFF INH SCH ×2 (07:49→19:02)
[2022-02-02] MEDS ORDERED: Potassium Chloride 20 MEQ TAB PO SCH (08:15)
[2022-02-02] MEDS: busPIRone HCl 5 MG TAB PO SCH ×2 (08:59→20:15)
[2022-02-02] MEDS: Carvedilol 6.25 MG TAB PO SCH (09:00)
[2022-02-02] MEDS: Famotidine 20 MG TAB PO SCH (09:00)
[2022-02-02] MEDS: Fluticasone Propionate Nasal Spray 16 gm Bottle NASAL SCH (09:01)
[2022-02-02] MEDS: Pregabalin 75 MG CAP PO SCH ×3 (09:01→20:15)
[2022-02-02] MEDS: Loratadine 10 MG TAB PO SCH (09:01)
[2022-02-02] MEDS: Montelukast Sodium 10 mg Tablet PO SCH (09:01)
[2022-02-02] MEDS: Topiramate 25 MG TAB PO SCH ×2 (09:02→20:17)
[2022-02-02 13:26] LABS: Potassium 3.8 mmol/L (3.5-5.1)
[2022-02-02] MEDS: HYDROcodone/Acetaminophen 10/325 mg Tablet PO PRN (14:03)
[2022-02-02] MEDS: Carvedilol 3.125 MG TAB PO SCH (16:03)
[2022-02-02] MEDS: Enoxaparin Sodium 40 MG/0.4 ML SYRINGE SC SCH (20:15)
[2022-02-02] MEDS: traZODone HCl 50 MG TAB PO SCH (20:17)
[2022-02-03] MEDS: Levothyroxine Sodium 25 MCG TAB PO SCH (05:33)
[2022-02-03 08:18] LABS: Anion Gap 14 mmol/L (10-20); BUN (Urea Nitrogen) 17 mg/dL (9.8-20.1); Calc. Creatinine Clearance 83 mL/min (70-130); Calcium 9.6 mg/dL (7.8-10.44); Carbon Dioxide 28 mmol/L (22-29); Chloride 101 mmol/L (98-107); Estimated GFR 93; Glucose 112 mg/dL (70-105); Potassium 3.2 mmol/L (3.5-5.1); Sodium 140 mmol/L (136-145)
[2022-02-03] MEDS: busPIRone HCl 5 MG TAB PO SCH (08:21)
[2022-02-03] MEDS: Carvedilol 3.125 MG TAB PO SCH (08:22)
[2022-02-03] MEDS: Famotidine 20 MG TAB PO SCH (08:23)
[2022-02-03] MEDS: Montelukast Sodium 10 mg Tablet PO SCH (08:24)
[2022-02-03] MEDS: Pregabalin 75 MG CAP PO SCH (08:24)
[2022-02-03] MEDS: Loratadine 10 MG TAB PO SCH (08:24)
[2022-02-03] MEDS: Topiramate 25 MG TAB PO SCH (08:25)
[2022-02-03] MEDS: Fluticasone Propionate Nasal Spray 16 gm Bottle NASAL SCH (08:27)
[2022-02-03 08:38] LABS: Eosinophils 3 % (0-10); Lymphocytes 45 % (21-51); MDiff Complete? YES; Mean Corpuscular HGB CONC 32.7 g/dL (32.0-36.0); Mean Corpuscular Hemoglobin 33.2 pg (27.0-31.0); Monocytes 6 % (0-10); Neutrophil 45 % (42-75); Platelet Count 312 thou/uL (130-400); Platelet Morphology Comment Appears Adequate; RBC Distribution Width 12.6 % (11.5-14.5); RBC Morphology Normal; Reactive Lymphocytes 1 % (0-10); White Blood Cell (WBC) Count 7.2 thou/uL (4.8-10.8)
[2022-02-03] MEDS: HYDROcodone/Acetaminophen 10/325 mg Tablet PO PRN (10:18)
[2022-02-03] MEDS ORDERED: Potassium Chloride 20 MEQ TAB PO SCH (10:30)
[2022-02-03] MEDS: Mometasone/Formoterol 200/5 60 PUFF INH SCH (10:46)
[2022-02-03 12:45] VITALS: BP 111/67; TEMP 97.7
[2022-02-03] MEDS ORDERED: Mometasone/Formoterol 200/5 60 PUFF INH SCH (18:30)
== END 2022-02-03 14:30 | disposition home or self-care (01) | DRG 683 ==
LOC: ERS 18:13 → 2SW 22:05 → OBSVTOIN 02-02 11:22
PROVIDERS: ADMIT Internal Medicine; ATTEND Internal Medicine
DX: N17.9 Acute kidney failure, unspecified (principal); I42.8 Other cardiomyopathies; I50.22 Chronic systolic (congestive) heart failure; Z23 Encounter for immunization; Z20.822 Contact with and (suspected) exposure to COVID-19; I11.0 Hypertensive heart disease with heart failure; G43.909 Migraine, unspecified, not intractable, without status migrainosus; K21.9 Gastro-esophageal reflux disease without esophagitis; F41.9 Anxiety disorder, unspecified; E87.6 Hypokalemia; E11.610 Type 2 diabetes mellitus with diabetic neuropathic arthropathy; E78.00 Pure hypercholesterolemia, unspecified; E03.9 Hypothyroidism, unspecified; J45.20 Mild intermittent asthma, uncomplicated; E86.0 Dehydration; M79.606 Pain in leg, unspecified; T46.6X5A Adverse effect of antihyperlipidemic and antiarteriosclerotic drugs, initial encounter; Z88.5 Allergy status to narcotic agent; Z79.890 Hormone replacement therapy; Z79.51 Long term (current) use of inhaled steroids; Z79.899 Other long term (current) drug therapy; Z79.4 Long term (current) use of insulin; Z95.0 Presence of cardiac pacemaker
CPT/HCPCS: 36415; 36416; 71045; 80048; 80053; 81003; 81015; 82550; 83735; 83880; 84484; 85025; 93005; 96361; 96365; 96366; 96372; G0378; J1650; J3480; J7050; U0003; U0005

== ENCOUNTER 2022-06-05 08:09 | Outpatient (CLI) | payer MEDICARE, MEDICAID | END 2022-06-05 08:10 | disposition home or self-care (01) | LOC: RAD 08:09 | PROVIDERS: ATTEND Internal Medicine Critical Care Medicine | DX: R06.00 Dyspnea, unspecified (principal) | CPT/HCPCS: 71046 ==

== ENCOUNTER 2022-06-07 20:22 | Inpatient (IN) | payer MEDICARE, MEDICAID ==
[2022-06-07 21:26] LABS: Mean Corpuscular HGB CONC 33.5 g/dL (32.0-36.0); Mean Corpuscular Hemoglobin 34.9 pg (27.0-31.0); Platelet Count 415 10x3/uL (130-400); RBC Distribution Width 12.3 % (11.5-14.5); Red Blood Cell (RBC) Count 3.15 mill/uL (4.20-5.40)
[2022-06-07 21:34] LABS: ALT (SGPT) 25 U/L (8-55); AST (SGOT) 26 U/L (5-34); Albumin 3.7 g/dL (3.5-5.0); Alkaline Phosphatase 101 U/L (40-110); Anion Gap 14 mmol/L (10-20); BUN (Urea Nitrogen) 23 mg/dL (9.8-20.1); Bilirubin, Total 0.2 mg/dL (0.2-1.2); Calc. Creatinine Clearance 0 mL/min (70-130); Carbon Dioxide 20 mmol/L (22-29); Chloride 108 mmol/L (98-107); Estimated GFR 52; Globulin 3.3 g/dL (2.4-3.5); Potassium 3.6 mmol/L (3.5-5.1); Sodium 138 mmol/L (136-145)
[2022-06-07 21:44] LABS: Glucose 464 mg/dL (70-105)
[2022-06-07 21:49] LABS: Band 8 % (5-11); Lymphocytes 16 % (21-51); MDiff Complete? YES; Macrocytosis MODERATE=16-30 cells (100X) (0-5/hpf); Monocytes 3 % (0-10); Neutrophil 73 % (42-75); Ovalocytes SLIGHT = 2-5 cells (100X) (0-1/hpf); Platelet Morphology Comment Appears Increased; White Blood Cell (WBC) Count 21.7 10x3/uL (4.8-10.8)
[2022-06-07] MEDS ORDERED: Dexamethasone 4 mg/ml Vial ONE (21:52)
[2022-06-07] MEDS ORDERED: Magnesium 2 GM/50 ML BAG (IN WATER) ONE (21:52)
[2022-06-07] MEDS ORDERED: Potassium Chloride 20 MEQ TAB ONE (21:57)
[2022-06-07] MEDS ORDERED: Ipratropium/Albuterol 3 ML NEB ONE (22:55)
[2022-06-07 23:24] LABS: SARS-CoV-2 NAA Rapid Test Not Detected (NotDetected)
[2022-06-08] MEDS ORDERED: Acetaminophen 325 MG TAB PO PRN (00:17)
[2022-06-08] MEDS ORDERED: Calcium Carbonate 500 MG ChewTAB PO PRN (00:17)
[2022-06-08] MEDS ORDERED: Ondansetron ODT 4 MG TAB PO PRN (00:17)
[2022-06-08] MEDS ORDERED: Senokot S 8.6-50 MG TAB PO PRN (00:17)
[2022-06-08] MEDS ORDERED: Dextrose 5% in Water 1,000 ML IV PRN (00:19)
[2022-06-08] MEDS ORDERED: Dextrose 50% Abboject 50 ML SYRINGE SLOW IVP PRN (00:19)
[2022-06-08] MEDS ORDERED: Lactated Ringer's 1,000 ML IV SCH (00:30)
[2022-06-08] MEDS ORDERED: Insulin Glargine 30 UNITS/0.3 ML VIAL SC SCH (00:45)
[2022-06-08 02:24] VITALS: BMI 21.3
[2022-06-08] MEDS ORDERED: Ipratropium/Albuterol 3 ML NEB NEB PRN (03:00)
[2022-06-08] MEDS ORDERED: Ipratropium/Albuterol 3 ML NEB ONE ×2 (03:01→18:35)
[2022-06-08] MEDS: Ipratropium/Albuterol 3 ML NEB NEB SCH ×5 (03:13→22:12)
[2022-06-08 05:54] VITALS: BP 136/107
[2022-06-08] MEDS: Levothyroxine Sodium 25 MCG TAB PO SCH (07:06)
[2022-06-08 07:16] LABS: Anion Gap 10 mmol/L (10-20); BUN (Urea Nitrogen) 16 mg/dL (9.8-20.1); Calc. Creatinine Clearance 87 mL/min (70-130); Calcium 8.4 mg/dL (7.8-10.44); Carbon Dioxide 19 mmol/L (22-29); Chloride 114 mmol/L (98-107); Estimated GFR 99; Glucose 267 mg/dL (70-105); Potassium 3.9 mmol/L (3.5-5.1); Sodium 139 mmol/L (136-145)
[2022-06-08] MEDS ORDERED: methylPREDNISolone Sod Succ 40 MG VIAL IVP SCH ×2 (09:00→15:30)
[2022-06-08] MEDS ORDERED: Famotidine 20 MG TAB PO SCH (09:00)
[2022-06-08] MEDS ORDERED: Aspirin 81 mg Enteric Coated Tablet ONE (09:33)
[2022-06-08] MEDS ORDERED: Famotidine 20 MG TAB ONE (09:33)
[2022-06-08] MEDS ORDERED: methylPREDNISolone Sod Succ 40 MG VIAL ONE ×2 (09:33→16:19)
[2022-06-08] MEDS: Loratadine 10 MG TAB PO SCH (10:10)
[2022-06-08] MEDS: Montelukast Sodium 10 mg Tablet PO SCH (10:10)
[2022-06-08] MEDS: Carvedilol 3.125 MG TAB PO SCH ×2 (10:10→18:39)
[2022-06-08] MEDS: Aspirin 81 mg Enteric Coated Tablet PO SCH (10:10)
[2022-06-08] MEDS: busPIRone HCl 5 MG TAB PO SCH ×2 (10:10→21:05)
[2022-06-08] MEDS ORDERED: cefTRIAXone\\ROCEPHIN 1 GM VIAL ONE (10:26)
[2022-06-08] MEDS: cefTRIAXone\\ROCEPHIN 1 GM in Sodium Chloride 0.9% 100 ML IVPB SCH (10:30)
[2022-06-08] MEDS: Spironolactone 25 MG TAB PO SCH (11:10)
[2022-06-08] MEDS: Insulin Glargine 30 UNITS/0.3 ML VIAL SC SCH (12:54)
[2022-06-08] MEDS ORDERED: guaiFENesin/DM ER PO SCH (13:00)
[2022-06-08 14:44] LABS: Actual Bicarbonate (HCO3a) 19.5 mEq/L (22-28); Analyzer IN Cardio ER; Base Excess (BEa) -3.3 mEq/L (-2.0 to +3.0); Calcium, Ionized (arterial) 1.21 mmol/L (1.12-1.30); Carboxyhemoglobin (COHb) 0.2 gm% (0.0-3.0); Hemoglobin (Hb) 11.3 g/dL (12.0-16.0); Potassium - ABG Lab 3.99 mmol/L (3.70-5.30); pH, Arterial 7.46 (7.35-7.45)
[2022-06-08 14:46] LABS: O2 Tension (PaO2), arterial 57.6 mmHg (80.0-100.0)
[2022-06-08 14:47] LABS: Puncture Site LBA
[2022-06-08] MEDS: Azithromycin 500 MG in Sodium Chloride 0.9% 250 ML 250 ML IVPB SCH (14:50)
[2022-06-08] MEDS ORDERED: Azithromycin 500 MG VIAL ONE (14:50)
[2022-06-08] MEDS ORDERED: Insulin Regular 300 UNITS/3 ML VIAL ONE (14:51)
[2022-06-08] MEDS: HumaLOG 300 UNITS/3 ML VIAL SC PRN (17:30)
[2022-06-08] MEDS: guaiFENesin/DM ER PO SCH (21:03)
[2022-06-08] MEDS: Atorvastatin Calcium 40 MG TAB PO SCH (21:03)
[2022-06-09] MEDS: methylPREDNISolone Sod Succ 40 MG VIAL IVP SCH ×4 (00:56→21:42)
[2022-06-09] MEDS: Ipratropium/Albuterol 3 ML NEB NEB SCH ×6 (02:59→22:05)
[2022-06-09] MEDS: Levothyroxine Sodium 25 MCG TAB PO SCH (05:44)
[2022-06-09] MEDS ORDERED: Furosemide 40 MG/4 ML VIAL SLOW IVP SCH (08:00)
[2022-06-09 08:24] LABS: #Lymphocytes 2.3 thou/uL (1.20-3.40); #Monocytes 0.3 thou/uL (0.11-0.59); #Neutrophils 13.6 thou/uL (1.40-6.50); %Eosinophils 0.1 % (0.0-10.0); %Monocytes 1.7 % (0.0-10.0); %Neutrophils 84.1 % (42.0-75.0); Hemoglobin 10.6 g/dL (12.0-16.0); Mean Corpuscular HGB CONC 33.9 g/dL (32.0-36.0); Mean Corpuscular Hemoglobin 35.2 pg (27.0-31.0); Mean Platelet Volume 7.1 fL (7.4-10.4); Platelet Count 414 10x3/uL (130-400); RBC Distribution Width 12.2 % (11.5-14.5); Red Blood Cell (RBC) Count 3.02 mill/uL (4.20-5.40); White Blood Cell (WBC) Count 16.1 10x3/uL (4.8-10.8)
[2022-06-09] MEDS: busPIRone HCl 5 MG TAB PO SCH ×2 (08:30→20:10)
[2022-06-09] MEDS: Montelukast Sodium 10 mg Tablet PO SCH (08:30)
[2022-06-09] MEDS: Aspirin 81 mg Enteric Coated Tablet PO SCH (08:30)
[2022-06-09] MEDS: cefTRIAXone\\ROCEPHIN 1 GM in Sodium Chloride 0.9% 100 ML IVPB SCH (08:31)
[2022-06-09] MEDS: Carvedilol 3.125 MG TAB PO SCH ×2 (08:31→18:03)
[2022-06-09] MEDS: guaiFENesin/DM ER PO SCH ×2 (08:31→20:10)
[2022-06-09] MEDS: Spironolactone 25 MG TAB PO SCH (08:31)
[2022-06-09] MEDS: Insulin Glargine 30 UNITS/0.3 ML VIAL SC SCH (08:32)
[2022-06-09] MEDS: Loratadine 10 MG TAB PO SCH (08:38)
[2022-06-09 08:45] LABS: Anion Gap 11 mmol/L (10-20); BUN (Urea Nitrogen) 16 mg/dL (9.8-20.1); Calc. Creatinine Clearance 96 mL/min (70-130); Calcium 9.2 mg/dL (7.8-10.44); Carbon Dioxide 21 mmol/L (22-29); Chloride 110 mmol/L (98-107); Estimated GFR 103; Glucose 194 mg/dL (70-105); Potassium 3.9 mmol/L (3.5-5.1); Sodium 138 mmol/L (136-145)
[2022-06-09] MEDS: HumaLOG 300 UNITS/3 ML VIAL SC PRN ×2 (12:25→20:13)
[2022-06-09] MEDS: Furosemide 40 MG/4 ML VIAL SLOW IVP SCH (14:07)
[2022-06-09] MEDS: Azithromycin 500 MG in Sodium Chloride 0.9% 250 ML 250 ML IVPB SCH (14:07)
[2022-06-09] MEDS: Mometasone/Formoterol 200/5 60 PUFF INH SCH (18:32)
[2022-06-09] MEDS: Atorvastatin Calcium 40 MG TAB PO SCH (20:09)
[2022-06-10] MEDS: Ipratropium/Albuterol 3 ML NEB NEB SCH ×6 (02:51→22:30)
[2022-06-10 04:52] LABS: Hemoglobin 10.6 g/dL (12.0-16.0); Mean Corpuscular HGB CONC 35.5 g/dL (32.0-36.0); Mean Corpuscular Hemoglobin 36.7 pg (27.0-31.0); Mean Platelet Volume 7.2 fL (7.4-10.4); Platelet Count 456 10x3/uL (130-400); RBC Distribution Width 12.1 % (11.5-14.5); Red Blood Cell (RBC) Count 2.89 mill/uL (4.20-5.40); White Blood Cell (WBC) Count 17.8 10x3/uL (4.8-10.8)
[2022-06-10 04:56] LABS: Anion Gap 12 mmol/L (10-20); BUN (Urea Nitrogen) 24 mg/dL (9.8-20.1); Calc. Creatinine Clearance 92 mL/min (70-130); Calcium 9.3 mg/dL (7.8-10.44); Carbon Dioxide 25 mmol/L (22-29); Chloride 106 mmol/L (98-107); Estimated GFR 99; Glucose 189 mg/dL (70-105); Potassium 3.1 mmol/L (3.5-5.1); Sodium 140 mmol/L (136-145)
[2022-06-10 05:33] LABS: Burr Cells SLIGHT = 2-5 cells (100X) (0-1/hpf); Lymphocytes 29 % (21-51); MDiff Complete? YES; Macrocytosis MODERATE=16-30 cells (100X) (0-5/hpf); Monocytes 2 % (0-10); Neutrophil 69 % (42-75); Ovalocytes SLIGHT = 2-5 cells (100X) (0-1/hpf); Platelet Morphology Comment Appears Increased
[2022-06-10] MEDS: Furosemide 40 MG/4 ML VIAL SLOW IVP SCH ×2 (06:12→15:51)
[2022-06-10] MEDS: methylPREDNISolone Sod Succ 40 MG VIAL IVP SCH ×2 (06:12→15:51)
[2022-06-10] MEDS: Levothyroxine Sodium 25 MCG TAB PO SCH (06:12)
[2022-06-10] MEDS: HumaLOG 300 UNITS/3 ML VIAL SC PRN ×3 (06:12→21:32)
[2022-06-10] MEDS: Mometasone/Formoterol 200/5 60 PUFF INH SCH ×2 (07:32→18:25)
[2022-06-10] MEDS: Spironolactone 25 MG TAB PO SCH (09:08)
[2022-06-10] MEDS: cefTRIAXone\\ROCEPHIN 1 GM in Sodium Chloride 0.9% 100 ML IVPB SCH (09:08)
[2022-06-10] MEDS: Montelukast Sodium 10 mg Tablet PO SCH (09:08)
[2022-06-10] MEDS: Carvedilol 3.125 MG TAB PO SCH ×2 (09:09→17:08)
[2022-06-10] MEDS: Aspirin 81 mg Enteric Coated Tablet PO SCH (09:09)
[2022-06-10] MEDS: busPIRone HCl 5 MG TAB PO SCH ×2 (09:09→21:27)
[2022-06-10] MEDS: guaiFENesin/DM ER PO SCH ×2 (09:09→21:28)
[2022-06-10] MEDS: Loratadine 10 MG TAB PO SCH (09:09)
[2022-06-10] MEDS: Insulin Glargine 30 UNITS/0.3 ML VIAL SC SCH (09:10)
[2022-06-10] MEDS ORDERED: Ibuprofen 800 MG TAB PO PRN (10:35)
[2022-06-10] MEDS ORDERED: tiZANidine HCl 4 MG TAB PO PRN (10:53)
[2022-06-10] MEDS: Azithromycin 500 MG in Sodium Chloride 0.9% 250 ML 250 ML IVPB SCH (12:14)
[2022-06-10] MEDS: Potassium Chloride 20 MEQ TAB PO SCH ×2 (12:15→17:08)
[2022-06-10] MEDS: traMADol HCl 50 MG TAB PO SCH ×3 (12:15→21:29)
[2022-06-10] MEDS: Pregabalin 75 MG CAP PO SCH ×2 (15:51→21:28)
[2022-06-10] MEDS: HYDROcodone/Acetaminophen 10/325 mg Tablet PO PRN (19:34)
[2022-06-10] MEDS ORDERED: traZODone HCl 50 MG TAB PO SCH (21:00)
[2022-06-10] MEDS: Topiramate 25 MG TAB PO SCH (21:27)
[2022-06-10] MEDS: Famotidine 20 MG TAB PO SCH (21:29)
[2022-06-10] MEDS: Atorvastatin Calcium 40 MG TAB PO SCH (21:29)
[2022-06-10] MEDS: Cefuroxime 250 MG TAB PO SCH (21:29)
[2022-06-10] MEDS: Lubiprostone 24 MCG CAP PO SCH (21:29)
[2022-06-11] MEDS: Ipratropium/Albuterol 3 ML NEB NEB SCH ×4 (02:38→14:59)
[2022-06-11 03:37] LABS: Anion Gap 13 mmol/L (10-20); BUN (Urea Nitrogen) 24 mg/dL (9.8-20.1); Calc. Creatinine Clearance 88 mL/min (70-130); Calcium 9.7 mg/dL (7.8-10.44); Carbon Dioxide 26 mmol/L (22-29); Chloride 102 mmol/L (98-107); Estimated GFR 98; Glucose 224 mg/dL (70-105); Potassium 3.8 mmol/L (3.5-5.1); Sodium 137 mmol/L (136-145)
[2022-06-11 03:47] LABS: Hemoglobin 10.9 g/dL (12.0-16.0); Lymphocytes 31 % (21-51); MDiff Complete? YES; Macrocytosis SLIGHT = 6-15 cells (100X) (0-5/hpf); Mean Corpuscular HGB CONC 33.1 g/dL (32.0-36.0); Mean Platelet Volume 6.8 fL (7.4-10.4); Monocytes 11 % (0-10); Neutrophil 58 % (42-75); Platelet Count 503 10x3/uL (130-400); Platelet Morphology Comment Appears Increased; RBC Distribution Width 12.1 % (11.5-14.5); White Blood Cell (WBC) Count 16.7 10x3/uL (4.8-10.8)
[2022-06-11] MEDS: Mometasone/Formoterol 200/5 60 PUFF INH SCH (06:20)
[2022-06-11] MEDS: Levothyroxine Sodium 25 MCG TAB PO SCH (06:54)
[2022-06-11] MEDS: Furosemide 40 MG/4 ML VIAL SLOW IVP SCH (06:54)
[2022-06-11] MEDS: HYDROcodone/Acetaminophen 10/325 mg Tablet PO PRN (06:58)
[2022-06-11 07:21] VITALS: TEMP 97.6
[2022-06-11] MEDS: Cefuroxime 250 MG TAB PO SCH (08:45)
[2022-06-11] MEDS: Aspirin 81 mg Enteric Coated Tablet PO SCH (08:45)
[2022-06-11] MEDS: traMADol HCl 50 MG TAB PO SCH ×2 (08:46→13:04)
[2022-06-11] MEDS: Famotidine 20 MG TAB PO SCH (08:46)
[2022-06-11] MEDS: Pregabalin 75 MG CAP PO SCH (08:47)
[2022-06-11] MEDS: Spironolactone 25 MG TAB PO SCH (08:48)
[2022-06-11] MEDS: Loratadine 10 MG TAB PO SCH (08:48)
[2022-06-11] MEDS: Lubiprostone 24 MCG CAP PO SCH (08:49)
[2022-06-11] MEDS: Topiramate 25 MG TAB PO SCH (08:49)
[2022-06-11] MEDS: guaiFENesin/DM ER PO SCH (08:49)
[2022-06-11] MEDS: busPIRone HCl 5 MG TAB PO SCH (08:49)
[2022-06-11] MEDS: Montelukast Sodium 10 mg Tablet PO SCH (08:49)
[2022-06-11] MEDS: Carvedilol 3.125 MG TAB PO SCH (08:50)
[2022-06-11] MEDS: Insulin Glargine 30 UNITS/0.3 ML VIAL SC SCH (08:50)
[2022-06-11] MEDS ORDERED: Ezetimibe 10 MG TAB PO SCH (09:00)
[2022-06-11] MEDS ORDERED: Metolazone 5 MG TAB PO SCH (09:00)
[2022-06-11] MEDS ORDERED: Potassium Chloride 20 MEQ TAB PO SCH (09:00)
[2022-06-11] MEDS ORDERED: Metoclopramide HCl 10 MG TAB PO SCH (09:00)
[2022-06-11] MEDS ORDERED: methylPREDNISolone Sod Succ 40 MG VIAL IVP SCH (09:00)
[2022-06-11] MEDS: Azithromycin 500 MG in Sodium Chloride 0.9% 250 ML 250 ML IVPB SCH (13:03)
[2022-06-11] MEDS: HumaLOG 300 UNITS/3 ML VIAL SC PRN (13:07)
[2022-06-11] MEDS ORDERED: Furosemide 40 MG TAB PO SCH (14:00)
[2022-06-11] MEDS ORDERED: Amitriptyline HCl 10 MG TAB PO SCH (21:00)
== END 2022-06-11 14:30 | disposition home or self-care (01) | DRG 193 ==
LOC: ERS 20:22 → ERHOLD 06-08 00:23 → IMCU/EMU 06-08 00:24
PROVIDERS: ADMIT Internal Medicine; ATTEND Internal Medicine
PROC: 5A0945A Assistance with Respiratory Ventilation, 24-96 Consecutive Hours, High Flow/Velocity Cannula (ICD-10-PCS; principal; 2022-06-08)
PROC: 4B02XTZ Measurement of Cardiac Defibrillator, External Approach (ICD-10-PCS; 2022-06-09)
DX: J15.9 Unspecified bacterial pneumonia (principal); I50.23 Acute on chronic systolic (congestive) heart failure; J96.01 Acute respiratory failure with hypoxia; J45.901 Unspecified asthma with (acute) exacerbation; Z20.822 Contact with and (suspected) exposure to COVID-19; N17.9 Acute kidney failure, unspecified; I42.8 Other cardiomyopathies; I11.0 Hypertensive heart disease with heart failure; E87.6 Hypokalemia; E78.5 Hyperlipidemia, unspecified; K21.9 Gastro-esophageal reflux disease without esophagitis; I07.1 Rheumatic tricuspid insufficiency; E11.65 Type 2 diabetes mellitus with hyperglycemia; F39 Unspecified mood [affective] disorder; Z79.899 Other long term (current) drug therapy; Z79.890 Hormone replacement therapy; Z79.4 Long term (current) use of insulin; Z79.82 Long term (current) use of aspirin; Z82.49 Family history of ischemic heart disease and other diseases of the circulatory system; Z83.3 Family history of diabetes mellitus; Z95.810 Presence of automatic (implantable) cardiac defibrillator
CPT/HCPCS: 36415; 36416; 36600; 71045; 80048; 80053; 82805; 83880; 84145; 84484; 85025; 87040; 93005; 93306; 94640; 96374; 96375; J0456; J0696; J1100; J1650; J1815; J1940; J1956; J2920; J3475; J3490; J7050; J7120; J7620

== ENCOUNTER 2022-07-06 11:56 | Inpatient (IN) | payer MEDICARE, MEDICAID ==
[~2022-07-06 11:56] MED LIST: Iopamidol-370 76% 500 ML 1 ML ONE
[2022-07-06] MEDS ORDERED: Ketorolac Tromethamine 30 MG/ML VIAL ONE (12:45)
[2022-07-06 13:01] LABS: Hemoglobin 12.8 g/dL (12.0-16.0); Mean Corpuscular HGB CONC 32.5 g/dL (32.0-36.0); Mean Corpuscular Hemoglobin 33.8 pg (27.0-31.0); Mean Platelet Volume 7.9 fL (7.4-10.4); Platelet Count 434 10x3/uL (130-400); RBC Distribution Width 12.1 % (11.5-14.5); Red Blood Cell (RBC) Count 3.77 mill/uL (4.20-5.40); White Blood Cell (WBC) Count 21.2 10x3/uL (4.8-10.8)
[2022-07-06 13:15] LABS: ALT (SGPT) 18 U/L (8-55); AST (SGOT) 11 U/L (5-34); Albumin 3.7 g/dL (3.5-5.0); Alkaline Phosphatase 106 U/L (40-110); Anion Gap 24 mmol/L (10-20); BUN (Urea Nitrogen) 24 mg/dL (9.8-20.1); Bilirubin, Total 0.3 mg/dL (0.2-1.2); Calc. Creatinine Clearance 0 mL/min (70-130); Calcium 10.3 mg/dL (7.8-10.44); Carbon Dioxide 15 mmol/L (22-29); Chloride 92 mmol/L (98-107); Estimated GFR 38; Globulin 4.7 g/dL (2.4-3.5); Potassium 5.1 mmol/L (3.5-5.1); Protein, Total 8.4 g/dL (6.0-8.3); Sodium 126 mmol/L (136-145)
[2022-07-06 13:19] LABS: Glucose 603 mg/dL (70-105)
[2022-07-06 13:26] LABS: Lymphocytes 13 % (21-51); MDiff Complete? YES; Macrocytosis SLIGHT = 6-15 cells (100X) (0-5/hpf); Monocytes 10 % (0-10); Neutrophil 77 % (42-75); Platelet Morphology Comment Appears Increased; Polychromasia SLIGHT = 2-3 cells (100X) (0-2/hpf)
[2022-07-06 13:53] LABS: Actual Bicarbonate (HCO3v) 16 mEq/L (22-28); Base Excess -9.3 mEq/L (-2.0 to +3.0); Calcium, Ionized (venous) 1.14 mmol/L (1.16-1.32); Chloride (VBG) 93 mmol/L (98-106); Hemoglobin (Hb) 12.5 g/dL (11.7-16.0); Potassium (VBG) 5.37 mmol/L (3.70-5.30); Sodium 122.6 mmol/L (133-146); pH (venous) 7.32 (7.32-7.43)
[2022-07-06] MEDS ORDERED: INSULIN REGULAR IN 0.9 % NACL 100 UNIT/100 ML BAG ONE (14:52)
[2022-07-06] MEDS ORDERED: Cefepime 2 GM VIAL ONE (15:15)
[2022-07-06] MEDS ORDERED: Dextrose 50% Abboject 50 ML SYRINGE SLOW IVP PRN (16:04)
[2022-07-06] MEDS ORDERED: VANCOMYCIN IVPB PRN (16:04)
[2022-07-06] MEDS ORDERED: Electrolyte Replacement Protocol 1 EACH IVPB SCH (16:04)
[2022-07-06] MEDS ORDERED: Dextrose 5 %-0.45 % NaCl 1,000 ML IV PRN (16:04)
[2022-07-06] MEDS ORDERED: Sodium Chloride 0.9% 1,000 ML IV PRN ×3 (16:04)
[2022-07-06] MEDS ORDERED: NS 0.9% w/ 20 MEQ KCL 1,000 ML IV PRN ×2 (16:04)
[2022-07-06] MEDS ORDERED: tiZANidine HCl 4 MG TAB PO PRN (16:14)
[2022-07-06] MEDS ORDERED: Metoclopramide HCl 10 MG TAB PO PRN (16:14)
[2022-07-06] MEDS ORDERED: HUMULIN R 100 UNITS in Sodium Chloride 0.9% 100 ML IVPB SCH (16:15)
[2022-07-06] MEDS ORDERED: Vancomycin 1 GM/200 ML (FROZEN) BAG ONE (16:30)
[2022-07-06] MEDS ORDERED: Morphine 2 MG/ML VIAL SLOW IVP PRN (16:36)
[2022-07-06] MEDS: HYDROcodone/Acetaminophen 5/325 mg Tablet PO PRN (18:11)
[2022-07-06] MEDS: Carvedilol 3.125 MG TAB PO SCH (18:12)
[2022-07-06] MEDS: Nystatin 500,000 UNITS/5 ML UDCUP SSW SCH ×2 (18:14→20:18)
[2022-07-06 18:23] LABS: Anion Gap 19 mmol/L (10-20); BUN (Urea Nitrogen) 23 mg/dL (9.8-20.1); Calc. Creatinine Clearance 0 mL/min (70-130); Calcium 9.7 mg/dL (7.8-10.44); Carbon Dioxide 15 mmol/L (22-29); Chloride 101 mmol/L (98-107); Estimated GFR 52; Potassium 4.5 mmol/L (3.5-5.1); Sodium 130 mmol/L (136-145)
[2022-07-06 18:32] LABS: Glucose 479 mg/dL (70-105)
[2022-07-06 18:34] VITALS: BMI 21.6
[2022-07-06] MEDS: Ipratropium/Albuterol 3 ML NEB NEB SCH ×2 (19:32→23:30)
[2022-07-06] MEDS: Mometasone 100 MCG/PUFF (1 INHALER) INH SCH (19:32)
[2022-07-06] MEDS: Lubiprostone 8 MCG CAP PO SCH (19:51)
[2022-07-06] MEDS ORDERED: Vancomycin HCl 500 MG in Sodium Chloride 0.9% 100 ML IVPB SCH (20:15)
[2022-07-06] MEDS: Atorvastatin Calcium 40 MG TAB PO SCH (20:19)
[2022-07-06] MEDS: busPIRone HCl 10 MG TAB PO SCH (20:20)
[2022-07-06] MEDS: Famotidine 20 MG TAB PO SCH (20:20)
[2022-07-06] MEDS: Montelukast Sodium 10 mg Tablet PO SCH (20:21)
[2022-07-06] MEDS: Pregabalin 75 MG CAP PO SCH (20:21)
[2022-07-06] MEDS: Topiramate 25 MG TAB PO SCH (20:21)
[2022-07-06 20:41] LABS: SARS-CoV-2 NAA Rapid Test Not Detected (NotDetected)
[2022-07-06] MEDS: Acetaminophen 325 MG TAB PO PRN (21:50)
[2022-07-06] MEDS: D5 1/2 NS w/20 mEq KCL 1,000 ML IV PRN (22:13)
[2022-07-06 22:40] LABS: Anion Gap 16 mmol/L (10-20); BUN (Urea Nitrogen) 21 mg/dL (9.8-20.1); Calc. Creatinine Clearance 62 mL/min (70-130); Calcium 9.4 mg/dL (7.8-10.44); Carbon Dioxide 16 mmol/L (22-29); Chloride 105 mmol/L (98-107); Estimated GFR 72; Glucose 215 mg/dL (70-105); Sodium 133 mmol/L (136-145)
[2022-07-07 01:44] LABS: Anion Gap 13 mmol/L (10-20); BUN (Urea Nitrogen) 17 mg/dL (9.8-20.1); Calc. Creatinine Clearance 71 mL/min (70-130); Calcium 9.1 mg/dL (7.8-10.44); Carbon Dioxide 15 mmol/L (22-29); Chloride 107 mmol/L (98-107); Estimated GFR 85; Glucose 306 mg/dL (70-105); Potassium 4.4 mmol/L (3.5-5.1); Sodium 131 mmol/L (136-145)
[2022-07-07] MEDS: D5 1/2 NS w/20 mEq KCL 1,000 ML IV PRN ×2 (02:29→07:22)
[2022-07-07] MEDS ORDERED: Cefepime 1 GM in Sodium Chloride 0.9% 100 ML IVPB SCH (03:00)
[2022-07-07] MEDS: HYDROcodone/Acetaminophen 5/325 mg Tablet PO PRN ×3 (03:08→18:43)
[2022-07-07] MEDS: Vancomycin HCl 750 MG in Sodium Chloride 0.9% 250 ML 250 ML IVPB SCH ×2 (03:31→16:29)
[2022-07-07 04:37] LABS: Anion Gap 12 mmol/L (10-20); BUN (Urea Nitrogen) 16 mg/dL (9.8-20.1); Calc. Creatinine Clearance 74 mL/min (70-130); Calcium 8.9 mg/dL (7.8-10.44); Carbon Dioxide 16 mmol/L (22-29); Chloride 107 mmol/L (98-107); Estimated GFR 90; Glucose 218 mg/dL (70-105); Potassium 4.2 mmol/L (3.5-5.1); Sodium 131 mmol/L (136-145)
[2022-07-07] MEDS: Levothyroxine Sodium 25 MCG TAB PO SCH (05:06)
[2022-07-07] MEDS: Carvedilol 3.125 MG TAB PO SCH ×2 (07:22→16:28)
[2022-07-07] MEDS: Ipratropium/Albuterol 3 ML NEB NEB SCH ×3 (07:30→19:54)
[2022-07-07] MEDS: Mometasone 100 MCG/PUFF (1 INHALER) INH SCH ×2 (07:30→19:57)
[2022-07-07] MEDS ORDERED: Sodium Chloride 0.9% 1,000 ML IV SCH (08:00)
[2022-07-07 08:15] LABS: Hemoglobin 11.5 g/dL (12.0-16.0); Mean Corpuscular HGB CONC 32.3 g/dL (32.0-36.0); RBC Distribution Width 11.9 % (11.5-14.5); Red Blood Cell (RBC) Count 3.49 mill/uL (4.20-5.40)
[2022-07-07] MEDS ORDERED: Oxymetazoline HCl 0.05% (30 ML BOT) ONE (09:10)
[2022-07-07] MEDS ORDERED: Lidocaine 1% (PF) 30 ML VIAL ONE (09:10)
[2022-07-07] MEDS ORDERED: EPINEPHrine 1 MG/ML AMP ONE ×2 (09:10→09:21)
[2022-07-07] MEDS ORDERED: HYDROmorphone 0.5 MG/0.5 ML SYRINGE ONE (09:15)
[2022-07-07] MEDS ORDERED: fentaNYL PF 100 MCG/2 ML SYRINGE ONE (09:15)
[2022-07-07] MEDS ORDERED: Midazolam HCl 2 mg/2 ml Vial ONE (09:15)
[2022-07-07] MEDS ORDERED: PHENYLEPHRINE-NS 100 MCG/ML 10 ML SYRINGE ONE (09:32)
[2022-07-07] MEDS ORDERED: Ondansetron PF 4 MG/2 ML Vial ONE (09:32)
[2022-07-07] MEDS ORDERED: Lidocaine 1% PF 5 ML VIAL ONE (09:32)
[2022-07-07] MEDS ORDERED: Succinylcholine Chloride 100 MG/5 ML SYRINGE FS ONE (09:32)
[2022-07-07] MEDS ORDERED: PROPOFOL 200 MG/20 ML VIAL ONE (09:32)
[2022-07-07] MEDS ORDERED: Ondansetron HCl/PF 4 MG/2 ML Vial IVP PRN (09:58)
[2022-07-07 11:05] LABS: Lymphocytes 10 % (21-51); MDiff Complete? YES; Monocytes 3 % (0-10); Neutrophil 86 % (42-75); Platelet Count 404 10x3/uL (130-400); Platelet Morphology Comment Appears Increased; Reactive Lymphocytes 1 % (0-10)
[2022-07-07] MEDS ORDERED: Dextrose 50% Abboject 50 ML SYRINGE ONE (11:29)
[2022-07-07] MEDS: Insulin Glargine 30 UNITS/0.3 ML VIAL SC SCH (12:39)
[2022-07-07] MEDS ORDERED: Dextrose 5% in Water 1,000 ML IV PRN (13:13)
[2022-07-07] MEDS ORDERED: HumaLOG 300 UNITS/3 ML VIAL SC PRN (13:13)
[2022-07-07] MEDS: Cefepime 2 GM in Sodium Chloride 0.9% 100 ML IVPB SCH (14:09)
[2022-07-07] MEDS: HumaLOG 300 UNITS/3 ML VIAL SC PRN ×2 (14:13→17:52)
[2022-07-07] MEDS: busPIRone HCl 10 MG TAB PO SCH ×2 (14:21→20:25)
[2022-07-07] MEDS: Loratadine 10 MG TAB PO SCH (14:22)
[2022-07-07] MEDS: Ezetimibe 10 MG TAB PO SCH (14:22)
[2022-07-07] MEDS: Pregabalin 75 MG CAP PO SCH ×3 (14:22→20:26)
[2022-07-07] MEDS: Nystatin 500,000 UNITS/5 ML UDCUP SSW SCH ×4 (14:23→20:26)
[2022-07-07] MEDS: Aspirin 81 mg Enteric Coated Tablet PO SCH (14:23)
[2022-07-07] MEDS: Topiramate 25 MG TAB PO SCH (14:29)
[2022-07-07] MEDS: Lubiprostone 8 MCG CAP PO SCH ×2 (14:30→17:58)
[2022-07-07] MEDS: WATER IVPB SCH (16:20)
[2022-07-07] MEDS: DEXTROSE 5% IVPB SCH (16:20)
[2022-07-07] MEDS: AMBISOME IVPB SCH (16:20)
[2022-07-07] MEDS: Famotidine 20 MG TAB PO SCH (20:25)
[2022-07-07] MEDS: Montelukast Sodium 10 mg Tablet PO SCH (20:25)
[2022-07-07] MEDS: Atorvastatin Calcium 40 MG TAB PO SCH (20:25)
[2022-07-08] MEDS: Ipratropium/Albuterol 3 ML NEB NEB SCH ×4 (01:18→19:51)
[2022-07-08] MEDS: Topiramate 25 MG TAB PO SCH ×3 (01:25→22:12)
[2022-07-08] MEDS: Cefepime 2 GM in Sodium Chloride 0.9% 100 ML IVPB SCH ×2 (03:11→15:05)
[2022-07-08] MEDS: HYDROcodone/Acetaminophen 5/325 mg Tablet PO PRN ×4 (03:25→21:13)
[2022-07-08 04:36] LABS: Vancomycin, Trough 6.4 ug/mL
[2022-07-08 04:42] LABS: Anion Gap 15 mmol/L (10-20); BUN (Urea Nitrogen) 9 mg/dL (9.8-20.1); Calc. Creatinine Clearance 74 mL/min (70-130); Calcium 9.4 mg/dL (7.8-10.44); Carbon Dioxide 19 mmol/L (22-29); Chloride 103 mmol/L (98-107); Estimated GFR 90; Glucose 299 mg/dL (70-105); Potassium 3.7 mmol/L (3.5-5.1); Sodium 133 mmol/L (136-145)
[2022-07-08 05:06] LABS: Mean Corpuscular HGB CONC 33.9 g/dL (32.0-36.0); Mean Corpuscular Hemoglobin 34.8 pg (27.0-31.0); Platelet Count 461 10x3/uL (130-400); RBC Distribution Width 11.9 % (11.5-14.5); Red Blood Cell (RBC) Count 3.75 mill/uL (4.20-5.40); White Blood Cell (WBC) Count 23.6 10x3/uL (4.8-10.8)
[2022-07-08 05:07] LABS: Band 9 % (5-11); Eosinophils 2 % (0-10); Lymphocytes 15 % (21-51); MDiff Complete? YES; Macrocytosis MODERATE=16-30 cells (100X) (0-5/hpf); Monocytes 3 % (0-10); Neutrophil 71 % (42-75); Ovalocytes SLIGHT = 2-5 cells (100X) (0-1/hpf); Platelet Morphology Comment Appears Increased
[2022-07-08] MEDS: Vancomycin HCl 750 MG in Sodium Chloride 0.9% 250 ML 250 ML IVPB SCH ×3 (05:45→12:58)
[2022-07-08] MEDS: Levothyroxine Sodium 25 MCG TAB PO SCH (06:27)
[2022-07-08] MEDS: Mometasone 100 MCG/PUFF (1 INHALER) INH SCH ×2 (07:35→19:52)
[2022-07-08] MEDS: HumaLOG 300 UNITS/3 ML VIAL SC PRN ×2 (07:47→17:18)
[2022-07-08] MEDS: busPIRone HCl 10 MG TAB PO SCH ×2 (08:10→21:12)
[2022-07-08] MEDS: Ezetimibe 10 MG TAB PO SCH (08:11)
[2022-07-08] MEDS: Carvedilol 3.125 MG TAB PO SCH ×2 (08:12→17:18)
[2022-07-08] MEDS: Pregabalin 75 MG CAP PO SCH ×3 (08:13→21:13)
[2022-07-08] MEDS: Loratadine 10 MG TAB PO SCH (08:15)
[2022-07-08] MEDS: Aspirin 81 mg Enteric Coated Tablet PO SCH (08:15)
[2022-07-08] MEDS: Nystatin 500,000 UNITS/5 ML UDCUP SSW SCH ×4 (08:16→21:12)
[2022-07-08] MEDS: Insulin Glargine 30 UNITS/0.3 ML VIAL SC SCH (08:30)
[2022-07-08] MEDS: Lubiprostone 8 MCG CAP PO SCH ×2 (08:44→17:17)
[2022-07-08] MEDS: WATER IVPB SCH (14:49)
[2022-07-08] MEDS: DEXTROSE 5% IVPB SCH (14:49)
[2022-07-08] MEDS: AMBISOME IVPB SCH (14:49)
[2022-07-08] MEDS: Admixture Fee 1 EACH in Dextrose 5% in Water 10 ML IV SCH ×2 (14:51→18:28)
[2022-07-08] MEDS: Atorvastatin Calcium 40 MG TAB PO SCH (21:11)
[2022-07-08] MEDS: Montelukast Sodium 10 mg Tablet PO SCH (21:12)
[2022-07-08] MEDS: Famotidine 20 MG TAB PO SCH (21:12)
[2022-07-09] MEDS: Ipratropium/Albuterol 3 ML NEB NEB SCH ×4 (00:56→19:32)
[2022-07-09] MEDS: Levothyroxine Sodium 25 MCG TAB PO SCH (05:07)
[2022-07-09] MEDS: HYDROcodone/Acetaminophen 5/325 mg Tablet PO PRN ×4 (05:07→22:32)
[2022-07-09 05:32] LABS: Hemoglobin A1c 11.1 % (4.0-6.0)
[2022-07-09 05:50] LABS: Anion Gap 10 mmol/L (10-20); BUN (Urea Nitrogen) 10 mg/dL (9.8-20.1); Calc. Creatinine Clearance 73 mL/min (70-130); Calcium 9.2 mg/dL (7.8-10.44); Carbon Dioxide 24 mmol/L (22-29); Chloride 104 mmol/L (98-107); Estimated GFR 88; Glucose 212 mg/dL (70-105); Potassium 3.2 mmol/L (3.5-5.1); Sodium 135 mmol/L (136-145)
[2022-07-09 06:02] LABS: Band 6 % (5-11); Hemoglobin 11.6 g/dL (12.0-16.0); Hypochromia SLIGHT = 6-15 cells (100X) (0-5/hpf); Lymphocytes 21 % (21-51); MDiff Complete? YES; Macrocytosis SLIGHT = 6-15 cells (100X) (0-5/hpf); Mean Corpuscular HGB CONC 33.5 g/dL (32.0-36.0); Mean Corpuscular Hemoglobin 34.4 pg (27.0-31.0); Mean Platelet Volume 7.5 fL (7.4-10.4); Monocytes 3 % (0-10); Neutrophil 68 % (42-75); Platelet Count 459 10x3/uL (130-400); Platelet Morphology Comment Appears Increased; Reactive Lymphocytes 2 % (0-10); Red Blood Cell (RBC) Count 3.37 mill/uL (4.20-5.40); White Blood Cell (WBC) Count 19.8 10x3/uL (4.8-10.8)
[2022-07-09] MEDS: HumaLOG 300 UNITS/3 ML VIAL SC PRN ×4 (06:09→20:48)
[2022-07-09] MEDS ORDERED: Potassium Chloride 20 MEQ TAB PO SCH (08:30)
[2022-07-09] MEDS: Mometasone 100 MCG/PUFF (1 INHALER) INH SCH ×2 (08:36→19:34)
[2022-07-09] MEDS ORDERED: Dextrose 5% in Water 1,000 ML IV PRN (08:56)
[2022-07-09] MEDS ORDERED: Dextrose 50% Abboject 50 ML SYRINGE SLOW IVP PRN (08:56)
[2022-07-09] MEDS ORDERED: Famotidine 20 MG TAB PO SCH (09:15)
[2022-07-09] MEDS: Lubiprostone 8 MCG CAP PO SCH ×2 (09:50→17:15)
[2022-07-09] MEDS: Ezetimibe 10 MG TAB PO SCH (09:50)
[2022-07-09] MEDS: Nystatin 500,000 UNITS/5 ML UDCUP SSW SCH ×4 (09:51→20:49)
[2022-07-09] MEDS: Pregabalin 75 MG CAP PO SCH ×3 (09:51→20:48)
[2022-07-09] MEDS: busPIRone HCl 10 MG TAB PO SCH ×2 (09:52→20:46)
[2022-07-09] MEDS: Carvedilol 3.125 MG TAB PO SCH ×2 (09:52→17:14)
[2022-07-09] MEDS: Loratadine 10 MG TAB PO SCH (09:54)
[2022-07-09] MEDS: Aspirin 81 mg Enteric Coated Tablet PO SCH (09:54)
[2022-07-09] MEDS: Topiramate 25 MG TAB PO SCH ×2 (09:54→20:49)
[2022-07-09] MEDS: Insulin Glargine 30 UNITS/0.3 ML VIAL SC SCH ×2 (09:55→20:47)
[2022-07-09] MEDS: WATER IVPB SCH (13:43)
[2022-07-09] MEDS: AMBISOME IVPB SCH (13:43)
[2022-07-09] MEDS: DEXTROSE 5% IVPB SCH (13:43)
[2022-07-09] MEDS: Admixture Fee 1 EACH in Dextrose 5% in Water 10 ML IV SCH ×2 (13:46→16:12)
[2022-07-09 14:12] LABS: Potassium 3.6 mmol/L (3.5-5.1)
[2022-07-09] MEDS: HumaLOG 300 UNITS/3 ML VIAL SC SCH (17:58)
[2022-07-09] MEDS: Atorvastatin Calcium 40 MG TAB PO SCH (20:46)
[2022-07-09] MEDS: Famotidine 20 MG TAB PO SCH (20:47)
[2022-07-09] MEDS: Montelukast Sodium 10 mg Tablet PO SCH (20:48)
[2022-07-10] MEDS: Ipratropium/Albuterol 3 ML NEB NEB SCH ×4 (00:03→19:09)
[2022-07-10] MEDS: HYDROcodone/Acetaminophen 5/325 mg Tablet PO PRN ×4 (02:40→20:18)
[2022-07-10 06:02] LABS: Anion Gap 11 mmol/L (10-20); BUN (Urea Nitrogen) 14 mg/dL (9.8-20.1); Calc. Creatinine Clearance 64 mL/min (70-130); Calcium 9.3 mg/dL (7.8-10.44); Carbon Dioxide 25 mmol/L (22-29); Chloride 104 mmol/L (98-107); Estimated GFR 76; Glucose 110 mg/dL (70-105); Potassium 3.1 mmol/L (3.5-5.1); Sodium 137 mmol/L (136-145)
[2022-07-10 06:12] LABS: Band 1 % (5-11); Eosinophils 1 % (0-10); Hemoglobin 10.7 g/dL (12.0-16.0); Hypochromia SLIGHT = 6-15 cells (100X) (0-5/hpf); Lymphocytes 27 % (21-51); MDiff Complete? YES; Macrocytosis SLIGHT = 6-15 cells (100X) (0-5/hpf); Mean Corpuscular HGB CONC 33.6 g/dL (32.0-36.0); Mean Corpuscular Hemoglobin 34.2 pg (27.0-31.0); Mean Platelet Volume 7.2 fL (7.4-10.4); Monocytes 14 % (0-10); Neutrophil 57 % (42-75); Platelet Count 482 10x3/uL (130-400); Platelet Morphology Comment Appears Increased; RBC Distribution Width 12.1 % (11.5-14.5); Red Blood Cell (RBC) Count 3.14 mill/uL (4.20-5.40)
[2022-07-10] MEDS: Levothyroxine Sodium 25 MCG TAB PO SCH (06:28)
[2022-07-10] MEDS: Mometasone 100 MCG/PUFF (1 INHALER) INH SCH ×2 (07:56→19:09)
[2022-07-10] MEDS ORDERED: Potassium Chloride 20 MEQ TAB PO SCH (08:00)
[2022-07-10] MEDS: Lubiprostone 8 MCG CAP PO SCH ×2 (08:44→17:13)
[2022-07-10] MEDS: Ezetimibe 10 MG TAB PO SCH (08:44)
[2022-07-10] MEDS: Loratadine 10 MG TAB PO SCH (08:44)
[2022-07-10] MEDS: busPIRone HCl 10 MG TAB PO SCH ×2 (08:45→20:19)
[2022-07-10] MEDS: Carvedilol 3.125 MG TAB PO SCH ×2 (08:45→18:01)
[2022-07-10] MEDS: Topiramate 25 MG TAB PO SCH ×2 (08:45→20:20)
[2022-07-10] MEDS: Pregabalin 75 MG CAP PO SCH ×3 (08:46→20:20)
[2022-07-10] MEDS: Famotidine 20 MG TAB PO SCH ×2 (08:46→20:20)
[2022-07-10] MEDS: Aspirin 81 mg Enteric Coated Tablet PO SCH (08:46)
[2022-07-10] MEDS: Nystatin 500,000 UNITS/5 ML UDCUP SSW SCH ×4 (08:47→20:22)
[2022-07-10] MEDS: HumaLOG 300 UNITS/3 ML VIAL SC SCH ×3 (08:48→17:11)
[2022-07-10] MEDS: Insulin Glargine 30 UNITS/0.3 ML VIAL SC SCH ×2 (08:48→20:21)
[2022-07-10 12:14] LABS: Fungus Stain Final report (.)
[2022-07-10] MEDS: AMBISOME IVPB SCH (13:27)
[2022-07-10] MEDS: DEXTROSE 5% IVPB SCH (13:27)
[2022-07-10] MEDS: WATER IVPB SCH (13:27)
[2022-07-10] MEDS: HumaLOG 300 UNITS/3 ML VIAL SC PRN ×2 (17:12→20:22)
[2022-07-10] MEDS: Montelukast Sodium 10 mg Tablet PO SCH (20:19)
[2022-07-10] MEDS: Atorvastatin Calcium 40 MG TAB PO SCH (20:20)
[2022-07-11] MEDS: Ipratropium/Albuterol 3 ML NEB NEB SCH ×3 (00:17→13:44)
[2022-07-11] MEDS: HYDROcodone/Acetaminophen 5/325 mg Tablet PO PRN ×3 (02:45→22:38)
[2022-07-11] MEDS: HumaLOG 300 UNITS/3 ML VIAL SC PRN ×2 (03:31→12:11)
[2022-07-11] MEDS: Levothyroxine Sodium 25 MCG TAB PO SCH (05:22)
[2022-07-11 05:51] LABS: Anion Gap 11 mmol/L (10-20); BUN (Urea Nitrogen) 17 mg/dL (9.8-20.1); Calc. Creatinine Clearance 61 mL/min (70-130); Calcium 9.4 mg/dL (7.8-10.44); Carbon Dioxide 25 mmol/L (22-29); Chloride 104 mmol/L (98-107); Estimated GFR 71; Glucose 160 mg/dL (70-105); Potassium 3.4 mmol/L (3.5-5.1); Sodium 137 mmol/L (136-145)
[2022-07-11 06:07] LABS: Band 6 % (5-11); Hypochromia SLIGHT = 6-15 cells (100X) (0-5/hpf); Lymphocytes 32 % (21-51); MDiff Complete? YES; Macrocytosis SLIGHT = 6-15 cells (100X) (0-5/hpf); Mean Corpuscular HGB CONC 33.2 g/dL (32.0-36.0); Mean Corpuscular Hemoglobin 34.1 pg (27.0-31.0); Mean Platelet Volume 7.2 fL (7.4-10.4); Monocytes 10 % (0-10); Neutrophil 44 % (42-75); Platelet Count 519 10x3/uL (130-400); Platelet Morphology Comment Appears Increased; RBC Distribution Width 12.2 % (11.5-14.5); Reactive Lymphocytes 8 % (0-10); Red Blood Cell (RBC) Count 2.92 mill/uL (4.20-5.40)
[2022-07-11] MEDS: Mometasone 100 MCG/PUFF (1 INHALER) INH SCH ×2 (07:54→18:50)
[2022-07-11] MEDS ORDERED: Magnesium 2 GM/50 ML(in water) 2 GM in Premix Bag 1 BAG IVPB SCH (08:00)
[2022-07-11] MEDS ORDERED: Potassium Chloride 20 MEQ TAB PO SCH (08:00)
[2022-07-11] MEDS: Lubiprostone 8 MCG CAP PO SCH ×2 (08:38→16:54)
[2022-07-11] MEDS: busPIRone HCl 10 MG TAB PO SCH ×2 (08:39→20:08)
[2022-07-11] MEDS: Topiramate 25 MG TAB PO SCH ×2 (08:39→20:09)
[2022-07-11] MEDS: Aspirin 81 mg Enteric Coated Tablet PO SCH (08:39)
[2022-07-11] MEDS: Famotidine 20 MG TAB PO SCH ×2 (08:40→20:08)
[2022-07-11] MEDS: Carvedilol 3.125 MG TAB PO SCH ×2 (08:40→16:55)
[2022-07-11] MEDS: Ezetimibe 10 MG TAB PO SCH (08:40)
[2022-07-11] MEDS: Loratadine 10 MG TAB PO SCH (08:40)
[2022-07-11] MEDS: Pregabalin 75 MG CAP PO SCH ×3 (08:41→20:07)
[2022-07-11] MEDS: Insulin Glargine 30 UNITS/0.3 ML VIAL SC SCH ×2 (08:41→20:08)
[2022-07-11] MEDS: HumaLOG 300 UNITS/3 ML VIAL SC SCH ×3 (08:42→16:54)
[2022-07-11] MEDS: Nystatin 500,000 UNITS/5 ML UDCUP SSW SCH ×4 (08:48→20:07)
[2022-07-11] MEDS: AMBISOME IVPB SCH (12:10)
[2022-07-11] MEDS: WATER IVPB SCH (12:10)
[2022-07-11] MEDS: DEXTROSE 5% IVPB SCH (12:10)
[2022-07-11] MEDS ORDERED: Ipratropium/Albuterol 3 ML NEB NEB PRN (13:51)
[2022-07-11] MEDS ORDERED: Iopamidol 370 76% 100 ML VIAL ONE (14:46)
[2022-07-11] MEDS: Montelukast Sodium 10 mg Tablet PO SCH (20:08)
[2022-07-11] MEDS: Atorvastatin Calcium 40 MG TAB PO SCH (20:08)
[2022-07-12] MEDS: HYDROcodone/Acetaminophen 5/325 mg Tablet PO PRN ×2 (04:02→18:19)
[2022-07-12 05:32] LABS: #Basophils 0.1 thou/uL (0.0-0.2); #Eosinphils 0.1 thou/uL (0.0-0.7); #Lymphocytes 5.1 thou/uL (1.20-3.40); #Monocytes 2.6 thou/uL (0.11-0.59); #Neutrophils 10.6 thou/uL (1.40-6.50); %Basophils 0.4 % (0.0-1.0); %Eosinophils 0.6 % (0.0-10.0); %Lymphocytes 27.7 % (21.0-51.0); %Monocytes 14.1 % (0.0-10.0); %Neutrophils 57.2 % (42.0-75.0); Hemoglobin 9.9 g/dL (12.0-16.0); Mean Corpuscular HGB CONC 33.3 g/dL (32.0-36.0); Mean Corpuscular Hemoglobin 33.8 pg (27.0-31.0); Platelet Count 600 10x3/uL (130-400); RBC Distribution Width 12.2 % (11.5-14.5); Red Blood Cell (RBC) Count 2.92 mill/uL (4.20-5.40); White Blood Cell (WBC) Count 18.5 10x3/uL (4.8-10.8)
[2022-07-12 05:53] LABS: Anion Gap 10 mmol/L (10-20); BUN (Urea Nitrogen) 14 mg/dL (9.8-20.1); Calc. Creatinine Clearance 73 mL/min (70-130); Calcium 9.5 mg/dL (7.8-10.44); Carbon Dioxide 25 mmol/L (22-29); Chloride 105 mmol/L (98-107); Estimated GFR 89; Glucose 100 mg/dL (70-105); Potassium 3.3 mmol/L (3.5-5.1); Sodium 137 mmol/L (136-145)
[2022-07-12] MEDS: Mometasone 100 MCG/PUFF (1 INHALER) INH SCH ×2 (06:20→18:50)
[2022-07-12] MEDS: Levothyroxine Sodium 25 MCG TAB PO SCH (06:21)
[2022-07-12] MEDS ORDERED: Potassium Chloride 20 MEQ TAB PO SCH (08:00)
[2022-07-12] MEDS: Lubiprostone 8 MCG CAP PO SCH ×2 (08:27→18:20)
[2022-07-12] MEDS: Carvedilol 3.125 MG TAB PO SCH ×2 (08:28→17:23)
[2022-07-12] MEDS: Aspirin 81 mg Enteric Coated Tablet PO SCH (08:29)
[2022-07-12] MEDS: busPIRone HCl 10 MG TAB PO SCH ×2 (08:30→20:31)
[2022-07-12] MEDS: Loratadine 10 MG TAB PO SCH (08:31)
[2022-07-12] MEDS: Ezetimibe 10 MG TAB PO SCH (08:31)
[2022-07-12] MEDS: Famotidine 20 MG TAB PO SCH ×2 (08:31→20:30)
[2022-07-12] MEDS: Pregabalin 75 MG CAP PO SCH ×3 (08:32→20:32)
[2022-07-12] MEDS: Topiramate 25 MG TAB PO SCH ×2 (08:41→20:31)
[2022-07-12] MEDS ORDERED: Insulin Glargine 30 UNITS/0.3 ML VIAL SC SCH (09:00)
[2022-07-12] MEDS: HumaLOG 300 UNITS/3 ML VIAL SC SCH ×3 (09:52→18:14)
[2022-07-12] MEDS: Nystatin 500,000 UNITS/5 ML UDCUP SSW SCH ×4 (12:27→20:30)
[2022-07-12] MEDS: Acetaminophen 325 MG TAB PO PRN (12:35)
[2022-07-12] MEDS: Micafungin 100 MG in Sodium Chloride 0.9% 100 ML IVPB SCH (18:31)
[2022-07-12] MEDS: Admixture Fee 1 EACH in Dextrose 5% in Water 10 ML IV SCH (20:29)
[2022-07-12] MEDS: Montelukast Sodium 10 mg Tablet PO SCH (20:31)
[2022-07-12] MEDS: Insulin Glargine 30 UNITS/0.3 ML VIAL SC SCH (20:31)
[2022-07-12] MEDS: Atorvastatin Calcium 40 MG TAB PO SCH (20:31)
[2022-07-12] MEDS: DEXTROSE 5% IVPB SCH (23:17)
[2022-07-12] MEDS: AMBISOME IVPB SCH (23:17)
[2022-07-12] MEDS: WATER IVPB SCH (23:17)
[2022-07-13] MEDS: HYDROcodone/Acetaminophen 5/325 mg Tablet PO PRN ×4 (04:09→21:21)
[2022-07-13 06:01] LABS: Anion Gap 15 mmol/L (10-20); BUN (Urea Nitrogen) 15 mg/dL (9.8-20.1); Calc. Creatinine Clearance 74 mL/min (70-130); Calcium 9.9 mg/dL (7.8-10.44); Carbon Dioxide 22 mmol/L (22-29); Chloride 104 mmol/L (98-107); Estimated GFR 90; Glucose 183 mg/dL (70-105); Potassium 3.6 mmol/L (3.5-5.1); Sodium 137 mmol/L (136-145)
[2022-07-13] MEDS: Levothyroxine Sodium 25 MCG TAB PO SCH (06:06)
[2022-07-13] MEDS: Mometasone 100 MCG/PUFF (1 INHALER) INH SCH ×2 (06:06→17:38)
[2022-07-13] MEDS: Lubiprostone 8 MCG CAP PO SCH ×2 (09:55→17:36)
[2022-07-13] MEDS: Carvedilol 3.125 MG TAB PO SCH ×2 (09:56→17:37)
[2022-07-13] MEDS: HumaLOG 300 UNITS/3 ML VIAL SC SCH ×3 (09:56→17:36)
[2022-07-13] MEDS: Potassium Chloride 20 MEQ TAB PO SCH ×2 (09:57→17:35)
[2022-07-13] MEDS: Pregabalin 75 MG CAP PO SCH ×3 (09:58→21:17)
[2022-07-13] MEDS: Loratadine 10 MG TAB PO SCH (09:59)
[2022-07-13] MEDS: Aspirin 81 mg Enteric Coated Tablet PO SCH (09:59)
[2022-07-13] MEDS: busPIRone HCl 10 MG TAB PO SCH ×2 (09:59→21:34)
[2022-07-13] MEDS: Nystatin 500,000 UNITS/5 ML UDCUP SSW SCH ×4 (09:59→21:28)
[2022-07-13] MEDS: Ezetimibe 10 MG TAB PO SCH (10:00)
[2022-07-13] MEDS: Insulin Glargine 30 UNITS/0.3 ML VIAL SC SCH ×2 (10:00→21:14)
[2022-07-13] MEDS: Famotidine 20 MG TAB PO SCH ×2 (10:01→21:16)
[2022-07-13] MEDS: Topiramate 25 MG TAB PO SCH ×2 (10:02→21:16)
[2022-07-13] MEDS: Micafungin 100 MG in Sodium Chloride 0.9% 100 ML IVPB SCH (17:45)
[2022-07-13] MEDS: Atorvastatin Calcium 40 MG TAB PO SCH (21:16)
[2022-07-13] MEDS: Montelukast Sodium 10 mg Tablet PO SCH (21:16)
[2022-07-14] MEDS: AMBISOME IVPB SCH (00:51)
[2022-07-14] MEDS: DEXTROSE 5% IVPB SCH (00:51)
[2022-07-14] MEDS: Admixture Fee 1 EACH in Dextrose 5% in Water 10 ML IV SCH (00:51)
[2022-07-14] MEDS: WATER IVPB SCH (00:51)
[2022-07-14] MEDS: HYDROcodone/Acetaminophen 5/325 mg Tablet PO PRN ×3 (04:46→15:26)
[2022-07-14] MEDS: Levothyroxine Sodium 25 MCG TAB PO SCH (04:46)
[2022-07-14 05:55] LABS: Hemoglobin 10.1 g/dL (12.0-16.0); Mean Corpuscular HGB CONC 32.5 g/dL (32.0-36.0); Mean Corpuscular Hemoglobin 33.3 pg (27.0-31.0); Mean Platelet Volume 6.7 fL (7.4-10.4); Platelet Count 682 10x3/uL (130-400); RBC Distribution Width 12.4 % (11.5-14.5); Red Blood Cell (RBC) Count 3.04 mill/uL (4.20-5.40); White Blood Cell (WBC) Count 19.2 10x3/uL (4.8-10.8)
[2022-07-14 06:08] LABS: Anion Gap 14 mmol/L (10-20); BUN (Urea Nitrogen) 13 mg/dL (9.8-20.1); Calc. Creatinine Clearance 77 mL/min (70-130); Calcium 9.7 mg/dL (7.8-10.44); Carbon Dioxide 21 mmol/L (22-29); Chloride 108 mmol/L (98-107); Estimated GFR 95; Glucose 126 mg/dL (70-105); Magnesium 1.8 mg/dL (1.6-2.6); Potassium 3.9 mmol/L (3.5-5.1); Sodium 139 mmol/L (136-145)
[2022-07-14] MEDS: Mometasone 100 MCG/PUFF (1 INHALER) INH SCH ×2 (06:59→17:38)
[2022-07-14 07:53] LABS: Band 3 % (5-11); Eosinophils 2 % (0-10); Lymphocytes 29 % (21-51); MDiff Complete? YES; Macrocytosis SLIGHT = 6-15 cells (100X) (0-5/hpf); Monocytes 12 % (0-10); Neutrophil 50 % (42-75); Platelet Morphology Comment Appears Increased; Reactive Lymphocytes 4 % (0-10)
[2022-07-14] MEDS: Topiramate 25 MG TAB PO SCH ×2 (08:55→22:19)
[2022-07-14] MEDS: Lubiprostone 8 MCG CAP PO SCH ×2 (08:55→17:36)
[2022-07-14] MEDS: HumaLOG 300 UNITS/3 ML VIAL SC SCH ×3 (08:56→17:37)
[2022-07-14] MEDS: Insulin Glargine 30 UNITS/0.3 ML VIAL SC SCH ×2 (08:56→22:21)
[2022-07-14] MEDS: Ezetimibe 10 MG TAB PO SCH (08:57)
[2022-07-14] MEDS: busPIRone HCl 10 MG TAB PO SCH ×2 (08:57→21:29)
[2022-07-14] MEDS: Pregabalin 75 MG CAP PO SCH ×3 (08:57→21:29)
[2022-07-14] MEDS: Potassium Chloride 20 MEQ TAB PO SCH ×2 (08:57→17:32)
[2022-07-14] MEDS: Loratadine 10 MG TAB PO SCH (08:58)
[2022-07-14] MEDS: Carvedilol 3.125 MG TAB PO SCH ×2 (08:58→17:38)
[2022-07-14] MEDS: Famotidine 20 MG TAB PO SCH ×2 (08:58→21:31)
[2022-07-14] MEDS: Aspirin 81 mg Enteric Coated Tablet PO SCH (08:58)
[2022-07-14] MEDS: Nystatin 500,000 UNITS/5 ML UDCUP SSW SCH ×4 (08:58→21:32)
[2022-07-14] MEDS ORDERED: Magnesium 2 GM/50 ML(in water) 2 GM in Premix Bag 1 BAG IVPB SCH (09:00)
[2022-07-14] MEDS: Micafungin 100 MG in Sodium Chloride 0.9% 100 ML IVPB SCH (17:36)
[2022-07-14] MEDS: Montelukast Sodium 10 mg Tablet PO SCH (21:31)
[2022-07-14] MEDS: Atorvastatin Calcium 40 MG TAB PO SCH (21:31)
[2022-07-15] MEDS: AMBISOME IVPB SCH (01:12)
[2022-07-15] MEDS: WATER IVPB SCH (01:12)
[2022-07-15] MEDS: DEXTROSE 5% IVPB SCH (01:12)
[2022-07-15] MEDS: HYDROcodone/Acetaminophen 5/325 mg Tablet PO PRN ×4 (01:26→17:04)
[2022-07-15 05:34] LABS: Anion Gap 13 mmol/L (10-20); BUN (Urea Nitrogen) 22 mg/dL (9.8-20.1); Calc. Creatinine Clearance 69 mL/min (70-130); Calcium 9.3 mg/dL (7.8-10.44); Carbon Dioxide 19 mmol/L (22-29); Chloride 109 mmol/L (98-107); Estimated GFR 83; Glucose 139 mg/dL (70-105); Magnesium 2.2 mg/dL (1.6-2.6); Potassium 4.3 mmol/L (3.5-5.1); Sodium 137 mmol/L (136-145)
[2022-07-15] MEDS: Levothyroxine Sodium 25 MCG TAB PO SCH (06:07)
[2022-07-15] MEDS: Mometasone 100 MCG/PUFF (1 INHALER) INH SCH ×2 (07:24→22:10)
[2022-07-15] MEDS: Lubiprostone 8 MCG CAP PO SCH ×2 (09:53→17:01)
[2022-07-15] MEDS: Pregabalin 75 MG CAP PO SCH ×3 (09:54→23:23)
[2022-07-15] MEDS: Potassium Chloride 20 MEQ TAB PO SCH ×2 (09:54→17:04)
[2022-07-15] MEDS: busPIRone HCl 10 MG TAB PO SCH ×2 (09:55→20:49)
[2022-07-15] MEDS: Topiramate 25 MG TAB PO SCH ×2 (09:55→20:47)
[2022-07-15] MEDS: Ezetimibe 10 MG TAB PO SCH (09:55)
[2022-07-15] MEDS: Aspirin 81 mg Enteric Coated Tablet PO SCH (09:55)
[2022-07-15] MEDS: Famotidine 20 MG TAB PO SCH ×2 (09:55→20:50)
[2022-07-15] MEDS: Loratadine 10 MG TAB PO SCH (09:55)
[2022-07-15] MEDS: Nystatin 500,000 UNITS/5 ML UDCUP SSW SCH ×4 (09:56→20:49)
[2022-07-15] MEDS: Carvedilol 3.125 MG TAB PO SCH ×2 (09:56→17:04)
[2022-07-15] MEDS: Insulin Glargine 30 UNITS/0.3 ML VIAL SC SCH ×2 (09:57→20:47)
[2022-07-15] MEDS: HumaLOG 300 UNITS/3 ML VIAL SC SCH ×3 (09:58→17:05)
[2022-07-15 16:14] LABS: Fungus Culture Final report (.); Fungus Culture Result 1 Zygomycetous fungus (.)
[2022-07-15] MEDS: Micafungin 100 MG in Sodium Chloride 0.9% 100 ML IVPB SCH (17:05)
[2022-07-15] MEDS: Atorvastatin Calcium 40 MG TAB PO SCH (20:50)
[2022-07-15] MEDS: Montelukast Sodium 10 mg Tablet PO SCH (20:50)
[2022-07-16] MEDS: HYDROcodone/Acetaminophen 5/325 mg Tablet PO PRN ×2 (01:48→09:21)
[2022-07-16] MEDS: AMBISOME IVPB SCH (04:02)
[2022-07-16] MEDS: DEXTROSE 5% IVPB SCH (04:02)
[2022-07-16] MEDS: WATER IVPB SCH (04:02)
[2022-07-16 06:11] LABS: Anion Gap 10 mmol/L (10-20); BUN (Urea Nitrogen) 21 mg/dL (9.8-20.1); Calc. Creatinine Clearance 64 mL/min (70-130); Calcium 9.8 mg/dL (7.8-10.44); Carbon Dioxide 23 mmol/L (22-29); Chloride 109 mmol/L (98-107); Estimated GFR 76; Glucose 86 mg/dL (70-105); Potassium 4.1 mmol/L (3.5-5.1); Sodium 138 mmol/L (136-145)
[2022-07-16] MEDS: Levothyroxine Sodium 25 MCG TAB PO SCH (07:06)
[2022-07-16] MEDS: Mometasone 100 MCG/PUFF (1 INHALER) INH SCH ×2 (07:41→19:16)
[2022-07-16] MEDS: Lubiprostone 8 MCG CAP PO SCH ×2 (08:27→17:27)
[2022-07-16] MEDS: Admixture Fee 1 EACH in Dextrose 5% in Water 10 ML IV SCH (09:19)
[2022-07-16] MEDS: Pregabalin 75 MG CAP PO SCH ×3 (09:22→20:52)
[2022-07-16] MEDS: Nystatin 500,000 UNITS/5 ML UDCUP SSW SCH ×4 (09:23→20:53)
[2022-07-16] MEDS: busPIRone HCl 10 MG TAB PO SCH ×2 (09:23→20:54)
[2022-07-16] MEDS: Potassium Chloride 20 MEQ TAB PO SCH ×2 (09:23→17:27)
[2022-07-16] MEDS: Loratadine 10 MG TAB PO SCH (09:24)
[2022-07-16] MEDS: Ezetimibe 10 MG TAB PO SCH (09:24)
[2022-07-16] MEDS: Aspirin 81 mg Enteric Coated Tablet PO SCH (09:25)
[2022-07-16] MEDS: Famotidine 20 MG TAB PO SCH ×2 (09:25→20:55)
[2022-07-16] MEDS: Carvedilol 3.125 MG TAB PO SCH ×2 (09:25→17:27)
[2022-07-16] MEDS: Insulin Glargine 30 UNITS/0.3 ML VIAL SC SCH ×2 (09:25→20:55)
[2022-07-16] MEDS: HumaLOG 300 UNITS/3 ML VIAL SC SCH ×3 (09:26→17:28)
[2022-07-16] MEDS: Topiramate 25 MG TAB PO SCH ×2 (09:28→20:56)
[2022-07-16] MEDS ORDERED: Iopamidol-370 76% 500 ML 1 ML ONE (09:50)
[2022-07-16] MEDS: Acetaminophen 500 MG TAB PO SCH ×2 (13:13→18:01)
[2022-07-16] MEDS: HumaLOG 300 UNITS/3 ML VIAL SC PRN (13:17)
[2022-07-16] MEDS: HYDROcodone/Acetaminophen 7.5/325 mg Tablet PO PRN (17:24)
[2022-07-16] MEDS: Micafungin 100 MG in Sodium Chloride 0.9% 100 ML IVPB SCH (17:30)
[2022-07-16] MEDS: Atorvastatin Calcium 40 MG TAB PO SCH (20:53)
[2022-07-16] MEDS: Montelukast Sodium 10 mg Tablet PO SCH (20:54)
[2022-07-17] MEDS: HYDROcodone/Acetaminophen 7.5/325 mg Tablet PO PRN ×3 (00:53→16:51)
[2022-07-17] MEDS: Acetaminophen 500 MG TAB PO SCH ×4 (00:53→19:23)
[2022-07-17 06:01] LABS: #Basophils 0.1 thou/uL (0.0-0.2); #Eosinphils 0.5 thou/uL (0.0-0.7); #Lymphocytes 4.9 thou/uL (1.20-3.40); #Monocytes 1.9 thou/uL (0.11-0.59); #Neutrophils 9.4 thou/uL (1.40-6.50); %Basophils 0.7 % (0.0-1.0); %Eosinophils 3.1 % (0.0-10.0); %Lymphocytes 29.2 % (21.0-51.0); %Monocytes 11.1 % (0.0-10.0); %Neutrophils 55.9 % (42.0-75.0); Hemoglobin 9.1 g/dL (12.0-16.0); Mean Corpuscular HGB CONC 33.5 g/dL (32.0-36.0); Mean Corpuscular Hemoglobin 34.1 pg (27.0-31.0); Mean Platelet Volume 6.8 fL (7.4-10.4); Platelet Count 645 10x3/uL (130-400); RBC Distribution Width 12.5 % (11.5-14.5); Red Blood Cell (RBC) Count 2.66 mill/uL (4.20-5.40); White Blood Cell (WBC) Count 16.7 10x3/uL (4.8-10.8)
[2022-07-17] MEDS: Levothyroxine Sodium 25 MCG TAB PO SCH (06:03)
[2022-07-17 06:16] LABS: Anion Gap 10 mmol/L (10-20); BUN (Urea Nitrogen) 21 mg/dL (9.8-20.1); Calc. Creatinine Clearance 58 mL/min (70-130); Calcium 9.3 mg/dL (7.8-10.44); Carbon Dioxide 24 mmol/L (22-29); Chloride 108 mmol/L (98-107); Estimated GFR 67; Glucose 113 mg/dL (70-105); Potassium 4.4 mmol/L (3.5-5.1); Sodium 138 mmol/L (136-145)
[2022-07-17] MEDS: WATER IVPB SCH (06:42)
[2022-07-17] MEDS: Admixture Fee 1 EACH in Dextrose 5% in Water 10 ML IV SCH ×3 (06:42→09:53)
[2022-07-17] MEDS: DEXTROSE 5% IVPB SCH (06:42)
[2022-07-17] MEDS: AMBISOME IVPB SCH (06:42)
[2022-07-17] MEDS: Mometasone 100 MCG/PUFF (1 INHALER) INH SCH ×2 (07:57→19:27)
[2022-07-17] MEDS ORDERED: Magnesium 2 GM/50 ML(in water) 2 GM in Premix Bag 1 BAG IVPB SCH (08:00)
[2022-07-17] MEDS: Pregabalin 75 MG CAP PO SCH ×3 (09:13→20:34)
[2022-07-17] MEDS: Carvedilol 3.125 MG TAB PO SCH ×2 (09:14→16:51)
[2022-07-17] MEDS: Aspirin 81 mg Enteric Coated Tablet PO SCH (09:14)
[2022-07-17] MEDS: Nystatin 500,000 UNITS/5 ML UDCUP SSW SCH ×4 (09:14→20:34)
[2022-07-17] MEDS: busPIRone HCl 10 MG TAB PO SCH ×2 (09:14→20:34)
[2022-07-17] MEDS: Famotidine 20 MG TAB PO SCH ×2 (09:14→20:34)
[2022-07-17] MEDS: Ezetimibe 10 MG TAB PO SCH (09:15)
[2022-07-17] MEDS: Potassium Chloride 20 MEQ TAB PO SCH (09:15)
[2022-07-17] MEDS: Loratadine 10 MG TAB PO SCH (09:16)
[2022-07-17] MEDS: Insulin Glargine 30 UNITS/0.3 ML VIAL SC SCH ×2 (09:16→20:55)
[2022-07-17] MEDS: Lubiprostone 8 MCG CAP PO SCH ×2 (09:17→16:38)
[2022-07-17] MEDS: Topiramate 25 MG TAB PO SCH ×2 (09:17→20:34)
[2022-07-17] MEDS: HumaLOG 300 UNITS/3 ML VIAL SC SCH ×3 (09:20→16:38)
[2022-07-17] MEDS: Micafungin 100 MG in Sodium Chloride 0.9% 100 ML IVPB SCH (16:53)
[2022-07-17] MEDS: HumaLOG 300 UNITS/3 ML VIAL SC PRN (17:20)
[2022-07-17] MEDS: Atorvastatin Calcium 40 MG TAB PO SCH (20:33)
[2022-07-17] MEDS: Montelukast Sodium 10 mg Tablet PO SCH (20:34)
[2022-07-18] MEDS: Acetaminophen 500 MG TAB PO SCH ×2 (00:23→07:44)
[2022-07-18] MEDS: HYDROcodone/Acetaminophen 7.5/325 mg Tablet PO PRN (02:42)
[2022-07-18 06:07] LABS: Magnesium 2.4 mg/dL (1.6-2.6)
[2022-07-18] MEDS: Mometasone 100 MCG/PUFF (1 INHALER) INH SCH ×2 (06:31→19:00)
[2022-07-18] MEDS: DEXTROSE 5% IVPB SCH (06:35)
[2022-07-18] MEDS: Levothyroxine Sodium 25 MCG TAB PO SCH (06:35)
[2022-07-18] MEDS: WATER IVPB SCH (06:35)
[2022-07-18] MEDS: Admixture Fee 1 EACH in Dextrose 5% in Water 10 ML IV SCH ×2 (06:35→10:01)
[2022-07-18] MEDS: AMBISOME IVPB SCH (06:35)
[2022-07-18] MEDS: HumaLOG 300 UNITS/3 ML VIAL SC PRN (06:35)
[2022-07-18] MEDS ORDERED: Melatonin 3 MG TAB PO PRN (08:25)
[2022-07-18] MEDS ORDERED: Acetaminophen 325 MG TAB PO PRN (08:25)
[2022-07-18] MEDS ORDERED: traZODone HCl 50 MG TAB PO PRN (08:26)
[2022-07-18] MEDS ORDERED: Ipratropium/Albuterol 3 ML NEB NEB SCH (08:30)
[2022-07-18] MEDS: Nystatin 500,000 UNITS/5 ML UDCUP SSW SCH ×4 (09:05→21:18)
[2022-07-18] MEDS: HYDROcodone/Acetaminophen 10/325 mg Tablet PO PRN ×4 (09:06→22:05)
[2022-07-18] MEDS: Pregabalin 75 MG CAP PO SCH ×3 (09:06→21:19)
[2022-07-18] MEDS: Furosemide 40 MG TAB PO SCH ×2 (09:06→13:34)
[2022-07-18] MEDS: Potassium Chloride 20 MEQ TAB PO SCH (09:07)
[2022-07-18] MEDS: Loratadine 10 MG TAB PO SCH (09:07)
[2022-07-18] MEDS: busPIRone HCl 10 MG TAB PO SCH ×2 (09:08→21:19)
[2022-07-18] MEDS: Famotidine 20 MG TAB PO SCH ×2 (09:09→21:19)
[2022-07-18] MEDS: Carvedilol 3.125 MG TAB PO SCH ×2 (09:09→16:56)
[2022-07-18] MEDS: Aspirin 81 mg Enteric Coated Tablet PO SCH (09:09)
[2022-07-18] MEDS: Topiramate 25 MG TAB PO SCH ×2 (09:09→21:20)
[2022-07-18] MEDS: Ezetimibe 10 MG TAB PO SCH (09:09)
[2022-07-18] MEDS: HumaLOG 300 UNITS/3 ML VIAL SC SCH ×3 (09:10→16:56)
[2022-07-18] MEDS: Lubiprostone 8 MCG CAP PO SCH ×2 (09:10→16:28)
[2022-07-18] MEDS ORDERED: Spironolactone 25 MG TAB PO SCH (09:30)
[2022-07-18] MEDS: Ipratropium/Albuterol 3 ML NEB NEB SCH ×2 (12:54→19:00)
[2022-07-18] MEDS: Micafungin 100 MG in Sodium Chloride 0.9% 100 ML IVPB SCH (16:56)
[2022-07-18] MEDS: Insulin Glargine 30 UNITS/0.3 ML VIAL SC SCH (21:16)
[2022-07-18] MEDS: Atorvastatin Calcium 40 MG TAB PO SCH (21:19)
[2022-07-18] MEDS: Montelukast Sodium 10 mg Tablet PO SCH (21:20)
[2022-07-19] MEDS: Ipratropium/Albuterol 3 ML NEB NEB SCH ×2 (00:44→07:00)
[2022-07-19] MEDS: HYDROcodone/Acetaminophen 10/325 mg Tablet PO PRN ×2 (04:11→08:53)
[2022-07-19 04:30] VITALS: BP 115/73; TEMP 98.4
[2022-07-19] MEDS: Levothyroxine Sodium 25 MCG TAB PO SCH (06:30)
[2022-07-19] MEDS: Admixture Fee 1 EACH in Dextrose 5% in Water 10 ML IV SCH ×2 (06:31→08:35)
[2022-07-19] MEDS: DEXTROSE 5% IVPB SCH (06:31)
[2022-07-19] MEDS: WATER IVPB SCH (06:31)
[2022-07-19] MEDS: AMBISOME IVPB SCH (06:31)
[2022-07-19 06:51] LABS: Anion Gap 14 mmol/L (10-20); BUN (Urea Nitrogen) 24 mg/dL (9.8-20.1); Calc. Creatinine Clearance 47 mL/min (70-130); Carbon Dioxide 25 mmol/L (22-29); Chloride 104 mmol/L (98-107); Estimated GFR 52; Glucose 144 mg/dL (70-105); Magnesium 2.2 mg/dL (1.6-2.6); Potassium 4.3 mmol/L (3.5-5.1); Sodium 139 mmol/L (136-145)
[2022-07-19] MEDS: Mometasone 100 MCG/PUFF (1 INHALER) INH SCH (07:00)
[2022-07-19] MEDS ORDERED: Spironolactone 25 MG TAB PO SCH (08:00)
[2022-07-19] MEDS ORDERED: Albumin 25% 25 GM/100 ML BOT IVPB SCH (08:00)
[2022-07-19] MEDS: Furosemide 40 MG TAB PO SCH (08:35)
[2022-07-19] MEDS: Topiramate 25 MG TAB PO SCH (08:35)
[2022-07-19] MEDS: Famotidine 20 MG TAB PO SCH (08:35)
[2022-07-19] MEDS: Lubiprostone 8 MCG CAP PO SCH (08:35)
[2022-07-19] MEDS: HumaLOG 300 UNITS/3 ML VIAL SC SCH (08:35)
[2022-07-19] MEDS: Nystatin 500,000 UNITS/5 ML UDCUP SSW SCH (08:35)
[2022-07-19] MEDS: Loratadine 10 MG TAB PO SCH (08:35)
[2022-07-19] MEDS: Carvedilol 3.125 MG TAB PO SCH (08:35)
[2022-07-19] MEDS: Potassium Chloride 20 MEQ TAB PO SCH (08:35)
[2022-07-19] MEDS: Aspirin 81 mg Enteric Coated Tablet PO SCH (08:35)
[2022-07-19] MEDS: Pregabalin 75 MG CAP PO SCH (08:35)
[2022-07-19] MEDS: busPIRone HCl 10 MG TAB PO SCH (08:35)
[2022-07-19] MEDS: Ezetimibe 10 MG TAB PO SCH (08:35)
== END 2022-07-19 09:05 | disposition short-term general hospital (02) | DRG 853 ==
LOC: ERS 11:56 → IMCU/EMU 15:10 → NEURO 07-08 16:51
PROVIDERS: ADMIT Family Medicine; ATTEND Family Medicine
PROC: 09DQ4ZZ Extraction of Right Maxillary Sinus, Percutaneous Endoscopic Approach (ICD-10-PCS; principal; 2022-07-07)
PROC: 09DU4ZZ Extraction of Right Ethmoid Sinus, Percutaneous Endoscopic Approach (ICD-10-PCS; 2022-07-07)
PROC: 09DW4ZZ Extraction of Right Sphenoid Sinus, Percutaneous Endoscopic Approach (ICD-10-PCS; 2022-07-07)
PROC: 8E09XBZ Computer Assisted Procedure of Head and Neck Region (ICD-10-PCS; 2022-07-07)
PROC: 05H633Z Insertion of Infusion Device into Left Subclavian Vein, Percutaneous Approach (ICD-10-PCS; 2022-07-11)
PROC: B5171ZA Fluoroscopy of Left Subclavian Vein using Low Osmolar Contrast, Guidance (ICD-10-PCS; 2022-07-11)
PROC: B547ZZA Ultrasonography of Left Subclavian Vein, Guidance (ICD-10-PCS; 2022-07-11)
DX: B46.1 Rhinocerebral mucormycosis (principal); E11.10 Type 2 diabetes mellitus with ketoacidosis without coma; J96.01 Acute respiratory failure with hypoxia; H05.011 Cellulitis of right orbit; I50.22 Chronic systolic (congestive) heart failure; N17.9 Acute kidney failure, unspecified; J45.901 Unspecified asthma with (acute) exacerbation; Z20.822 Contact with and (suspected) exposure to COVID-19; J30.89 Other allergic rhinitis; E03.9 Hypothyroidism, unspecified; K21.9 Gastro-esophageal reflux disease without esophagitis; H05 Disorders of orbit; G89.29 Other chronic pain; E86.0 Dehydration; F39 Unspecified mood [affective] disorder; R94.31 Abnormal electrocardiogram [ECG] [EKG]; J32.4 Chronic pansinusitis; I15.2 Hypertension secondary to endocrine disorders; E78.00 Pure hypercholesterolemia, unspecified; F41.9 Anxiety disorder, unspecified; H05.20 Unspecified exophthalmos; E11.649 Type 2 diabetes mellitus with hypoglycemia without coma; D75.839 Thrombocytosis, unspecified; K59.00 Constipation, unspecified; G44.209 Tension-type headache, unspecified, not intractable; E87.6 Hypokalemia; Z98.890 Other specified postprocedural states; Z95.810 Presence of automatic (implantable) cardiac defibrillator; Z88.8 Allergy status to other drugs, medicaments and biological substances; Z79.899 Other long term (current) drug therapy; Z79.4 Long term (current) use of insulin; Z79.82 Long term (current) use of aspirin
CPT/HCPCS: 36415; 36416; 36569; 70470; 70481; 71045; 80048; 80053; 80202; 82010; 82805; 83036; 83605; 83735; 84443; 85025; 87040; 87070; 87102; 87107; 87205; 87206; 87811; 88305; 88312; 88331; 93005; 94640; 96361; 96365; 96366; 96367; 96375; C1751; J0171; J0289; J0692; J1170; J1650; J1815; J1885; J2001; J2248; J2250; J2272; J2405; J2704; J3370; J3370-JW; J3475; J3480; J3490; J7050; J7070; J7620; J7999; Q9967; U0002

== ENCOUNTER 2022-12-10 16:47 | Observation (INO) | payer MEDICARE, MEDICAID ==
[2022-12-10 18:10] LABS: #Basophils 0.1 thou/uL (0.0-0.2); #Eosinphils 0.1 thou/uL (0.0-0.7); #Monocytes 0.8 thou/uL (0.11-0.59); #Neutrophils 11.2 thou/uL (1.40-6.50); %Basophils 0.3 % (0.0-1.0); %Eosinophils 0.6 % (0.0-10.0); %Lymphocytes 19.4 % (21.0-51.0); %Monocytes 5.4 % (0.0-10.0); %Neutrophils 73.7 % (42.0-75.0); Hemoglobin 10.7 g/dL (12.0-16.0); Mean Corpuscular Hemoglobin 30.5 pg (27.0-31.0); Mean Corpuscular Volume 89.7 fl (78.0-98.0); Mean Platelet Volume 10.6 fL (7.4-10.4); Platelet Count 422 10x3/uL (130-400); RBC Distribution Width 15.6 % (11.5-14.5); Red Blood Cell (RBC) Count 3.51 mill/uL (4.20-5.40); White Blood Cell (WBC) Count 15.3 10x3/uL (4.8-10.8)
[2022-12-10 18:17] LABS: Bacteria/HPF None Seen HPF (None Seen); Bilirubin Negative (Negative); Blood, Urine 2+ (Negative); CAUTI Indications for Culture Pelvic or flank pain; Clarity Clear (Clear); Glucose, Urine (Dipstick) Normal (Negative); Ketone, Urine Negative (Negative); Leukocyte Negative Leu/uL (Negative); Nitrite Negative (Negative); Protein, Urine (Dipstick) 10 mg/dL (Neg-Trace); Specific Gravity, Urine 1.017 (1.002-1.036); Squamous Epithelial 0-3 HPF (0-3); Urobilinogen Normal mg/dL (Less than 2); pH, Urine 6.5 (5.0-9.0)
[2022-12-10 18:26] LABS: Urine Culture Reflex No No
[2022-12-10] MEDS ORDERED: diphenhydrAMINE 50 MG/ML VIAL ONE (18:32)
[2022-12-10] MEDS ORDERED: Metoclopramide HCl 10 MG/2 ML VIAL ONE (18:32)
[2022-12-10 19:01] LABS: ALT (SGPT) 44 U/L (8-55); AST (SGOT) 19 U/L (5-34); Albumin 3.9 g/dL (3.5-5.0); Alkaline Phosphatase 191 U/L (40-110); Anion Gap 15 mmol/L (10-20); BUN (Urea Nitrogen) 15 mg/dL (9.8-20.1); Bilirubin, Total 0.4 mg/dL (0.2-1.2); Calc. Creatinine Clearance 0 mL/min (70-130); Calcium 9.8 mg/dL (7.8-10.44); Carbon Dioxide 25 mmol/L (22-29); Chloride 100 mmol/L (98-107); Estimated GFR 43; Globulin 4.1 g/dL (2.4-3.5); Glucose 74 mg/dL (70-105); Potassium 2.9 mmol/L (3.5-5.1); Sodium 137 mmol/L (136-145)
[2022-12-10] MEDS ORDERED: Ondansetron PF 4 MG/2 ML Vial ONE (20:45)
[2022-12-10] MEDS ORDERED: Potassium Chloride 20 MEQ TAB ONE (20:45)
[2022-12-10] MEDS ORDERED: Cefepime 2 GM VIAL ONE (20:46)
[2022-12-10] MEDS ORDERED: Ondansetron PF 4 MG/2 ML Vial IVP PRN (22:22)
[2022-12-10] MEDS ORDERED: Glucagon 1 MG/ML KIT IM PRN (22:31)
[2022-12-10] MEDS ORDERED: Dextrose 50% Abboject 50 ML SYRINGE SLOW IVP PRN (22:31)
[2022-12-10] MEDS ORDERED: Dextrose 5% in Water 1,000 ML IV PRN (22:31)
[2022-12-10] MEDS ORDERED: HumaLOG 300 UNITS/3 ML VIAL SC PRN ×2 (22:31)
[2022-12-11] MEDS: Sodium Chloride 0.9% 1,000 ML IV SCH ×2 (00:26→07:40)
[2022-12-11 02:02] VITALS: BMI 27.6
[2022-12-11 05:50] LABS: #Basophils 0.1 thou/uL (0.0-0.2); #Eosinphils 0.1 thou/uL (0.0-0.7); #Monocytes 0.9 thou/uL (0.11-0.59); #Neutrophils 4.3 thou/uL (1.40-6.50); %Basophils 0.6 % (0.0-1.0); %Eosinophils 1.4 % (0.0-10.0); %Lymphocytes 36.2 % (21.0-51.0); %Monocytes 10.1 % (0.0-10.0); Hemoglobin 10.8 g/dL (12.0-16.0); Mean Corpuscular HGB CONC 32.8 g/dL (32.0-36.0); Mean Corpuscular Hemoglobin 30.3 pg (27.0-31.0); Mean Corpuscular Volume 92.2 fl (78.0-98.0); Mean Platelet Volume 10.2 fL (7.4-10.4); Platelet Count 379 10x3/uL (130-400); RBC Distribution Width 15.7 % (11.5-14.5); Red Blood Cell (RBC) Count 3.57 mill/uL (4.20-5.40); White Blood Cell (WBC) Count 8.4 10x3/uL (4.8-10.8)
[2022-12-11 06:40] LABS: ALT (SGPT) 37 U/L (8-55); AST (SGOT) 17 U/L (5-34); Albumin 3.5 g/dL (3.5-5.0); Alkaline Phosphatase 172 U/L (40-110); Anion Gap 16 mmol/L (10-20); BUN (Urea Nitrogen) 13 mg/dL (9.8-20.1); Bilirubin, Total 0.3 mg/dL (0.2-1.2); Calc. Creatinine Clearance 62 mL/min (70-130); Calcium 9.2 mg/dL (7.8-10.44); Carbon Dioxide 20 mmol/L (22-29); Chloride 106 mmol/L (98-107); Estimated GFR 54; Globulin 3.7 g/dL (2.4-3.5); Glucose 69 mg/dL (70-105); Potassium 3.3 mmol/L (3.5-5.1); Protein, Total 7.2 g/dL (6.0-8.3); Sodium 139 mmol/L (136-145)
[2022-12-11] MEDS ORDERED: Famotidine/PF 20 mg/2ml Vial ONE (08:01)
[2022-12-11] MEDS ORDERED: Potassium Bicarbonate/Cit Ac 20 MEQ TAB PO SCH (08:45)
[2022-12-11] MEDS ORDERED: Famotidine/PF 20 mg/2ml Vial SLOW IVP SCH (09:00)
[2022-12-11 09:48] VITALS: BP 144/83; TEMP 98.7
== END 2022-12-11 10:13 | disposition home or self-care (01) ==
LOC: ERS 16:47 → ERHOLD 21:14
PROVIDERS: ADMIT Hospitalist; ATTEND Internal Medicine
DX: R51.9 Headache, unspecified (principal); E87.6 Hypokalemia; B46.5 Mucormycosis, unspecified; E11.9 Type 2 diabetes mellitus without complications; I10 Essential (primary) hypertension; E78.5 Hyperlipidemia, unspecified; Z88.8 Allergy status to other drugs, medicaments and biological substances; Z79.890 Hormone replacement therapy; Z79.82 Long term (current) use of aspirin; Z79.899 Other long term (current) drug therapy; Z79.4 Long term (current) use of insulin
CPT/HCPCS: 70450; 70486; 71045; 80053 ×2; 81001; 82962; 85025 ×2; 87040; 87086; 96361; 96365; 96375; 99285; G0378 ×2; 36415; 36416; J0692; J1200; J1650; J2405; J2765; J7050; S0028

== ENCOUNTER 2022-12-12 13:01 | Outpatient (CLI) | payer MEDICARE, MEDICAID | END 2022-12-12 13:02 | disposition home or self-care (01) | LOC: EEG 13:01 | PROVIDERS: ATTEND Psychiatry & Neurology Neurology | DX: G25.9 Extrapyramidal and movement disorder, unspecified (principal) | CPT/HCPCS: 95816; 95957 ==

== ENCOUNTER 2022-12-28 18:40 | Inpatient (IN) | payer MEDICARE, MEDICAID ==
[2022-12-28 18:58] LABS: Hemoglobin 10.6 g/dL (12.0-16.0); Mean Corpuscular HGB CONC 33.1 g/dL (32.0-36.0); Mean Corpuscular Hemoglobin 29.4 pg (27.0-31.0); Mean Corpuscular Volume 88.9 fl (78.0-98.0); Mean Platelet Volume 10.9 fL (7.4-10.4); Platelet Count 421 10x3/uL (130-400); RBC Distribution Width 15.5 % (11.5-14.5); White Blood Cell (WBC) Count 17.5 10x3/uL (4.8-10.8)
[2022-12-28] MEDS ORDERED: Ipratropium/Albuterol 3 ML NEB ONE ×3 (19:07→23:45)
[2022-12-28 19:18] LABS: Delete Auto Diff?? YES; Manual Diff?? YES
[2022-12-28] MEDS ORDERED: Dexamethasone 10 MG/ML VIAL ONE (19:22)
[2022-12-28] MEDS ORDERED: Magnesium 2 GM/50 ML BAG (IN WATER) ONE (19:23)
[2022-12-28 19:25] LABS: Albumin 3.3 g/dL (3.5-5.0); Anion Gap 11 mmol/L (10-20); BUN (Urea Nitrogen) 21 mg/dL (9.8-20.1); Bilirubin, Total 0.6 mg/dL (0.2-1.2); Calc. Creatinine Clearance 0 mL/min (70-130); Calcium 8.5 mg/dL (7.8-10.44); Carbon Dioxide 22 mmol/L (22-29); Chloride 109 mmol/L (98-107); Estimated GFR 49; Glucose 167 mg/dL (70-105); Potassium 3.4 mmol/L (3.5-5.1); Protein, Total 6.5 g/dL (6.0-8.3); Sodium 139 mmol/L (136-145)
[2022-12-28 19:26] LABS: ALT (SGPT) 21 U/L (8-55); AST (SGOT) 24 U/L (5-34); Alkaline Phosphatase 204 U/L (40-110); Globulin 3.2 g/dL (2.4-3.5); Lipase 10 U/L (8-78)
[2022-12-28 19:29] LABS: Actual Bicarbonate (HCO3v) 22.7 mEq/L (22-28); Analyzer IN Cardio ER; Base Excess -0.8 mEq/L (-2.0 to +3.0); Calcium, Ionized (venous) 1.07 mmol/L (1.16-1.32); Chloride (VBG) 106 mmol/L (98-106); Hematocrit-VBG 34 % (36.0-47.0); Hemoglobin (Hb) 11.7 g/dL (11.7-16.0); Potassium (VBG) 3.02 mmol/L (3.70-5.30); Sodium 138.9 mmol/L (133-146); pH (venous) 7.447 (7.32-7.43)
[2022-12-28 19:36] LABS: Band 4 % (5-11); CellaVision Operator ID LAB.KB; Dohle Bodies SLIGHT; Lymphocytes 19 % (21-51); Monocytes 3 % (0-10); Neutrophil 73 % (42-75); Platelet Adequacy Comment Platelets Increased; Polychromasia SLIGHT = 2-3 cells HPF (0-2); Reactive Lymphocytes 1 % (0-10); Total Cell Count 100
[2022-12-28 19:48] LABS: CKMB 1.9 ng/mL (0-6.6)
[2022-12-28] MEDS ORDERED: Azithromycin 250 MG TAB ONE (20:17)
[2022-12-28] MEDS ORDERED: Piperacillin/Tazobactam 4.5 GM VIAL ONE (20:17)
[2022-12-28] MEDS ORDERED: Aspirin Chewable 81 MG TAB ONE (20:17)
[2022-12-28] MEDS ORDERED: Vancomycin 1 GM/200 ML (FROZEN) BAG ONE (20:19)
[2022-12-28] MEDS ORDERED: Acetaminophen 325 MG TAB PO PRN (22:32)
[2022-12-28] MEDS ORDERED: Calcium Carbonate 500 MG ChewTAB PO PRN (22:32)
[2022-12-28] MEDS ORDERED: Ondansetron PF 4 MG/2 ML Vial IVP PRN (22:32)
[2022-12-28] MEDS ORDERED: Ondansetron ODT 4 MG TAB PO PRN (22:32)
[2022-12-28] MEDS ORDERED: Senokot S 8.6-50 MG TAB PO PRN (22:32)
[2022-12-28] MEDS ORDERED: Dextrose 5% in Water 1,000 ML IV PRN (22:35)
[2022-12-28] MEDS ORDERED: Dextrose 50% Abboject 50 ML SYRINGE SLOW IVP PRN (22:35)
[2022-12-28] MEDS ORDERED: Glucagon 1 MG/ML KIT IM PRN (22:35)
[2022-12-28] MEDS ORDERED: Atorvastatin Calcium 40 MG TAB PO SCH (22:45)
[2022-12-28 23:05] LABS: Troponin I 0.111 ng/mL (< 0.028)
[2022-12-28] MEDS: Ipratropium/Albuterol 3 ML NEB NEB SCH (23:53)
[2022-12-29 02:08] LABS: Troponin I 0.065 ng/mL (< 0.028)
[2022-12-29] MEDS: Levothyroxine Sodium 25 MCG TAB PO SCH (06:35)
[2022-12-29 07:21] LABS: Hemoglobin 9.4 g/dL (12.0-16.0); Mean Corpuscular HGB CONC 33.7 g/dL (32.0-36.0); Mean Corpuscular Hemoglobin 29.7 pg (27.0-31.0); Mean Corpuscular Volume 88.3 fl (78.0-98.0); Mean Platelet Volume 11.2 fL (7.4-10.4); Platelet Count 369 10x3/uL (130-400); RBC Distribution Width 15.4 % (11.5-14.5); Red Blood Cell (RBC) Count 3.16 mill/uL (4.20-5.40); White Blood Cell (WBC) Count 12.2 10x3/uL (4.8-10.8)
[2022-12-29] MEDS: Ipratropium/Albuterol 3 ML NEB NEB SCH ×3 (07:22→18:47)
[2022-12-29 07:43] LABS: Delete Auto Diff?? YES; Manual Diff?? YES
[2022-12-29 07:48] LABS: Anion Gap 12 mmol/L (10-20); BUN (Urea Nitrogen) 19 mg/dL (9.8-20.1); Calc. Creatinine Clearance 0 mL/min (70-130); Calcium 8.9 mg/dL (7.8-10.44); Carbon Dioxide 22 mmol/L (22-29); Chloride 107 mmol/L (98-107); Estimated GFR 63; Glucose 178 mg/dL (70-105); Potassium 3.7 mmol/L (3.5-5.1); Sodium 137 mmol/L (136-145)
[2022-12-29 08:35] LABS: Band 14 % (5-11); Burr Cells SLIGHT = 2-5 cells HPF (0-1); CellaVision Operator ID LAB.CLH1; Hypochromia SLIGHT = 6-15 cells HPF (0-5); Lymphocytes 10 % (21-51); Metamyelocyte 2 % (0-0); Monocytes 1 % (0-10); Myelocyte 2 % (0-0); Neutrophil 71 % (42-75); Platelet Adequacy Comment Platelets Normal; Polychromasia SLIGHT = 2-3 cells HPF (0-2); Target Cells SLIGHT = 2-5 cells HPF (0-1); Total Cell Count 100
[2022-12-29] MEDS ORDERED: methylPREDNISolone Sod Succ 40 MG VIAL IVP SCH (09:00)
[2022-12-29 11:25] VITALS: BMI 28.0
[2022-12-29] MEDS: Ezetimibe 10 MG TAB PO SCH (15:32)
[2022-12-29] MEDS: Loratadine 10 MG TAB PO SCH (15:32)
[2022-12-29] MEDS: Carvedilol 3.125 MG TAB PO SCH ×2 (15:32→22:00)
[2022-12-29] MEDS: Aspirin 81 mg Enteric Coated Tablet PO SCH (15:32)
[2022-12-29] MEDS: Montelukast Sodium 10 mg Tablet PO SCH (15:32)
[2022-12-29] MEDS: Topiramate 25 MG TAB PO SCH ×2 (15:32→21:59)
[2022-12-29] MEDS: Famotidine 20 MG TAB PO SCH ×2 (15:33→22:01)
[2022-12-29] MEDS: Sacubitril 24MG/Valsartan 26 MG TAB PO SCH ×2 (15:33→22:05)
[2022-12-29] MEDS: HumaLOG 300 UNITS/3 ML VIAL SC PRN (15:40)
[2022-12-29] MEDS: Insulin Glargine 30 UNITS/0.3 ML VIAL SC SCH (15:44)
[2022-12-29] MEDS: methylPREDNISolone Sod Succ 40 MG VIAL IVP SCH (15:44)
[2022-12-29] MEDS: Furosemide 40 MG TAB PO SCH (15:44)
[2022-12-29] MEDS: Famotidine/PF 20 mg/2ml Vial SLOW IVP SCH ×2 (16:02→22:00)
[2022-12-29] MEDS: Atorvastatin Calcium 40 MG TAB PO SCH (21:59)
[2022-12-30] MEDS: Ipratropium/Albuterol 3 ML NEB NEB SCH ×4 (00:23→18:31)
[2022-12-30] MEDS: methylPREDNISolone Sod Succ 40 MG VIAL IVP SCH ×2 (04:04→18:09)
[2022-12-30] MEDS: Levothyroxine Sodium 25 MCG TAB PO SCH (06:19)
[2022-12-30] MEDS ORDERED: Iopamidol-370 76% 500 ML MDV (1 ML CHARGE) ONE (10:07)
[2022-12-30] MEDS: Famotidine 20 MG TAB PO SCH ×2 (10:30→22:11)
[2022-12-30] MEDS: Aspirin 81 mg Enteric Coated Tablet PO SCH (10:30)
[2022-12-30] MEDS: Loratadine 10 MG TAB PO SCH (10:30)
[2022-12-30] MEDS: Ezetimibe 10 MG TAB PO SCH (10:30)
[2022-12-30] MEDS: Famotidine/PF 20 mg/2ml Vial SLOW IVP SCH ×2 (10:31→22:13)
[2022-12-30] MEDS: Montelukast Sodium 10 mg Tablet PO SCH (10:31)
[2022-12-30] MEDS: Topiramate 25 MG TAB PO SCH ×2 (10:34→22:16)
[2022-12-30] MEDS: Sacubitril 24MG/Valsartan 26 MG TAB PO SCH ×2 (10:36→22:12)
[2022-12-30] MEDS: Furosemide 40 MG TAB PO SCH (10:36)
[2022-12-30] MEDS: Carvedilol 3.125 MG TAB PO SCH ×2 (10:37→22:10)
[2022-12-30] MEDS: Insulin Glargine 30 UNITS/0.3 ML VIAL SC SCH (10:37)
[2022-12-30] MEDS: HumaLOG 300 UNITS/3 ML VIAL SC PRN (19:43)
[2022-12-30] MEDS: Atorvastatin Calcium 40 MG TAB PO SCH (22:10)
[2022-12-31] MEDS: Ipratropium/Albuterol 3 ML NEB NEB SCH ×4 (00:35→18:55)
[2022-12-31] MEDS: methylPREDNISolone Sod Succ 40 MG VIAL IVP SCH ×2 (03:15→14:30)
[2022-12-31 05:13] LABS: Hemoglobin 9.3 g/dL (12.0-16.0); Mean Corpuscular HGB CONC 35.5 g/dL (32.0-36.0); Mean Corpuscular Volume 84.5 fl (78.0-98.0); Mean Platelet Volume 11.1 fL (7.4-10.4); Platelet Count 397 10x3/uL (130-400); RBC Distribution Width 15.4 % (11.5-14.5); White Blood Cell (WBC) Count 21.2 10x3/uL (4.8-10.8)
[2022-12-31 05:37] LABS: Anion Gap 16 mmol/L (10-20); BUN (Urea Nitrogen) 28 mg/dL (9.8-20.1); Calc. Creatinine Clearance 67 mL/min (70-130); Calcium 8.6 mg/dL (7.8-10.44); Carbon Dioxide 22 mmol/L (22-29); Chloride 105 mmol/L (98-107); Estimated GFR 59; Glucose 173 mg/dL (70-105); Potassium 3.6 mmol/L (3.5-5.1); Sodium 139 mmol/L (136-145)
[2022-12-31 05:43] LABS: Delete Auto Diff?? YES; Manual Diff?? YES
[2022-12-31 06:42] LABS: Anisocytosis MODERATE=16-30 cells HPF (0-5); Band 3 % (5-11); Burr Cells MODERATE= 6-15 cells HPF (0-1); CellaVision Operator ID LAB.JMM; Lymphocytes 7 % (21-51); Monocytes 2 % (0-10); Neutrophil 88 % (42-75); Nucleated RBC (Manual Ct) 1 % (0); Platelet Adequacy Comment Platelets Normal; Poikilocytosis MODERATE=16-30 cells HPF (0-5); Polychromasia SLIGHT = 2-3 cells HPF (0-2); Total Cell Count 102
[2022-12-31] MEDS: HumaLOG 300 UNITS/3 ML VIAL SC PRN ×3 (06:53→21:56)
[2022-12-31] MEDS: Levothyroxine Sodium 25 MCG TAB PO SCH (06:53)
[2022-12-31] MEDS: Insulin Glargine 30 UNITS/0.3 ML VIAL SC SCH (09:09)
[2022-12-31] MEDS: Aspirin 81 mg Enteric Coated Tablet PO SCH (09:10)
[2022-12-31] MEDS: Montelukast Sodium 10 mg Tablet PO SCH (09:10)
[2022-12-31] MEDS: Topiramate 25 MG TAB PO SCH ×2 (09:10→21:50)
[2022-12-31] MEDS: Ezetimibe 10 MG TAB PO SCH (09:10)
[2022-12-31] MEDS: Loratadine 10 MG TAB PO SCH (09:10)
[2022-12-31] MEDS: Furosemide 40 MG TAB PO SCH (09:10)
[2022-12-31] MEDS: Famotidine 20 MG TAB PO SCH ×2 (09:10→21:50)
[2022-12-31] MEDS: Famotidine/PF 20 mg/2ml Vial SLOW IVP SCH (09:11)
[2022-12-31] MEDS: Sacubitril 24MG/Valsartan 26 MG TAB PO SCH ×2 (09:14→21:50)
[2022-12-31] MEDS: Carvedilol 3.125 MG TAB PO SCH ×2 (09:16→21:50)
[2022-12-31] MEDS ORDERED: cefTRIAXone\\ROCEPHIN 1 GM in Sodium Chloride 0.9% 100 ML IVPB SCH (10:45)
[2022-12-31] MEDS: Atorvastatin Calcium 40 MG TAB PO SCH (21:49)
[2023-01-01] MEDS: Ipratropium/Albuterol 3 ML NEB NEB SCH ×4 (00:56→18:44)
[2023-01-01] MEDS: Famotidine/PF 20 mg/2ml Vial SLOW IVP SCH ×3 (01:05→20:25)
[2023-01-01] MEDS: methylPREDNISolone Sod Succ 40 MG VIAL IVP SCH ×2 (03:53→15:35)
[2023-01-01] MEDS: HumaLOG 300 UNITS/3 ML VIAL SC PRN ×4 (06:22→21:20)
[2023-01-01] MEDS: Levothyroxine Sodium 25 MCG TAB PO SCH (06:22)
[2023-01-01 07:44] LABS: Hemoglobin 9.7 g/dL (12.0-16.0); Mean Corpuscular HGB CONC 33.4 g/dL (32.0-36.0); Mean Corpuscular Volume 86.6 fl (78.0-98.0); Mean Platelet Volume 11.2 fL (7.4-10.4); Platelet Count 427 10x3/uL (130-400); RBC Distribution Width 15.5 % (11.5-14.5); Red Blood Cell (RBC) Count 3.35 mill/uL (4.20-5.40); White Blood Cell (WBC) Count 18.9 10x3/uL (4.8-10.8)
[2023-01-01 07:56] LABS: Delete Auto Diff?? YES; Manual Diff?? YES
[2023-01-01 08:06] LABS: Anion Gap 11 mmol/L (10-20); BUN (Urea Nitrogen) 34 mg/dL (9.8-20.1); CRP (Inflammatory) 7.63 mg/dL (= or < 0.5); Calc. Creatinine Clearance 65 mL/min (70-130); Calcium 8.6 mg/dL (7.8-10.44); Carbon Dioxide 27 mmol/L (22-29); Chloride 102 mmol/L (98-107); Estimated GFR 57; Glucose 177 mg/dL (70-105); Sodium 137 mmol/L (136-145)
[2023-01-01] MEDS: cefTRIAXone\\ROCEPHIN 1 GM in Sodium Chloride 0.9% 100 ML IVPB SCH ×3 (08:34→15:35)
[2023-01-01] MEDS: Loratadine 10 MG TAB PO SCH (08:35)
[2023-01-01] MEDS: Montelukast Sodium 10 mg Tablet PO SCH (08:35)
[2023-01-01] MEDS: Insulin Glargine 30 UNITS/0.3 ML VIAL SC SCH (08:35)
[2023-01-01] MEDS: Sacubitril 24MG/Valsartan 26 MG TAB PO SCH ×2 (08:35→20:24)
[2023-01-01] MEDS: Furosemide 40 MG TAB PO SCH (08:35)
[2023-01-01] MEDS: HYDROcodone/Acetaminophen 5/325 mg Tablet PO PRN ×3 (08:35→20:28)
[2023-01-01] MEDS: Carvedilol 3.125 MG TAB PO SCH ×2 (08:35→20:25)
[2023-01-01] MEDS: Ezetimibe 10 MG TAB PO SCH (08:35)
[2023-01-01] MEDS: Famotidine 20 MG TAB PO SCH ×2 (08:35→20:25)
[2023-01-01] MEDS: Aspirin 81 mg Enteric Coated Tablet PO SCH (08:36)
[2023-01-01] MEDS: Topiramate 25 MG TAB PO SCH ×2 (08:36→21:03)
[2023-01-01 09:27] LABS: Band 11 % (5-11); Burr Cells MARKED = >16 cells HPF (0-1); CellaVision Operator ID LAB.GE; Lymphocytes 2 % (21-51); Monocytes 1 % (0-10); Neutrophil 86 % (42-75); Platelet Adequacy Comment Platelets Increased; Polychromasia SLIGHT = 2-3 cells HPF (0-2); Total Cell Count 101
[2023-01-01 12:54] LABS: ANA Symphony (Qualitative) Negative (Negative); ANA Symphony (Quantitative) 0.4 Ratio (< 0.7 Negative); Mitochondrial Ab Greater than 220.0 U/mL (<4 Negative); Thyroid Peroxidase IgG Ab Less than 4.0 IU/mL (<25 Normal); dsDNA IgG Antibody 0.8 IU/mL (<10 Negative)
[2023-01-01] MEDS ORDERED: Potassium Chloride 20 MEQ TAB PO SCH (16:45)
[2023-01-01] MEDS: Atorvastatin Calcium 40 MG TAB PO SCH (20:25)
[2023-01-02] MEDS: Ipratropium/Albuterol 3 ML NEB NEB SCH ×4 (00:36→19:09)
[2023-01-02] MEDS: methylPREDNISolone Sod Succ 40 MG VIAL IVP SCH ×2 (03:24→15:32)
[2023-01-02 04:44] LABS: #Monocytes 0.5 thou/uL (0.11-0.59); #Neutrophils 13.4 thou/uL (1.40-6.50); %Basophils 0.1 % (0.0-1.0); %Lymphocytes 8.8 % (21.0-51.0); %Neutrophils 86.9 % (42.0-75.0); Mean Corpuscular HGB CONC 34.6 g/dL (32.0-36.0); Mean Platelet Volume 10.9 fL (7.4-10.4); Platelet Count 435 10x3/uL (130-400); RBC Distribution Width 15.2 % (11.5-14.5); Red Blood Cell (RBC) Count 3.45 mill/uL (4.20-5.40); White Blood Cell (WBC) Count 15.4 10x3/uL (4.8-10.8)
[2023-01-02 04:59] LABS: Mean Corpuscular Volume 83.8 fl (78.0-98.0)
[2023-01-02 05:19] LABS: Anion Gap 14 mmol/L (10-20); BUN (Urea Nitrogen) 43 mg/dL (9.8-20.1); Calc. Creatinine Clearance 61 mL/min (70-130); Calcium 8.7 mg/dL (7.8-10.44); Carbon Dioxide 24 mmol/L (22-29); Chloride 102 mmol/L (98-107); Estimated GFR 52; Glucose 203 mg/dL (70-105); Potassium 3.6 mmol/L (3.5-5.1); Sodium 136 mmol/L (136-145)
[2023-01-02] MEDS: Levothyroxine Sodium 25 MCG TAB PO SCH (06:48)
[2023-01-02] MEDS: HumaLOG 300 UNITS/3 ML VIAL SC PRN ×4 (06:50→20:54)
[2023-01-02] MEDS: Furosemide 40 MG TAB PO SCH (08:40)
[2023-01-02] MEDS: Sacubitril 24MG/Valsartan 26 MG TAB PO SCH ×2 (08:40→20:48)
[2023-01-02] MEDS: HYDROcodone/Acetaminophen 5/325 mg Tablet PO PRN ×3 (08:40→20:59)
[2023-01-02] MEDS: Ezetimibe 10 MG TAB PO SCH (08:40)
[2023-01-02] MEDS: Aspirin 81 mg Enteric Coated Tablet PO SCH (08:40)
[2023-01-02] MEDS: Famotidine 20 MG TAB PO SCH ×2 (08:40→20:47)
[2023-01-02] MEDS: Carvedilol 3.125 MG TAB PO SCH ×2 (08:41→20:47)
[2023-01-02] MEDS: Loratadine 10 MG TAB PO SCH (08:41)
[2023-01-02] MEDS: Montelukast Sodium 10 mg Tablet PO SCH (08:41)
[2023-01-02] MEDS: Topiramate 25 MG TAB PO SCH ×2 (08:41→20:50)
[2023-01-02] MEDS: Insulin Glargine 30 UNITS/0.3 ML VIAL SC SCH (08:41)
[2023-01-02] MEDS: Famotidine/PF 20 mg/2ml Vial SLOW IVP SCH ×2 (08:42→20:48)
[2023-01-02] MEDS: cefTRIAXone\\ROCEPHIN 1 GM in Sodium Chloride 0.9% 100 ML IVPB SCH (15:31)
[2023-01-02] MEDS: Atorvastatin Calcium 40 MG TAB PO SCH (20:47)
[2023-01-03] MEDS: Ipratropium/Albuterol 3 ML NEB NEB SCH ×3 (02:08→12:38)
[2023-01-03] MEDS: methylPREDNISolone Sod Succ 40 MG VIAL IVP SCH (02:30)
[2023-01-03] MEDS: Levothyroxine Sodium 25 MCG TAB PO SCH (05:17)
[2023-01-03] MEDS: HumaLOG 300 UNITS/3 ML VIAL SC PRN ×2 (05:18→12:49)
[2023-01-03] MEDS: Furosemide 40 MG TAB PO SCH (10:32)
[2023-01-03] MEDS: Aspirin 81 mg Enteric Coated Tablet PO SCH (10:32)
[2023-01-03] MEDS: Carvedilol 3.125 MG TAB PO SCH (10:33)
[2023-01-03] MEDS: Loratadine 10 MG TAB PO SCH (10:33)
[2023-01-03] MEDS: Ezetimibe 10 MG TAB PO SCH (10:33)
[2023-01-03] MEDS: Sacubitril 24MG/Valsartan 26 MG TAB PO SCH (10:34)
[2023-01-03] MEDS: Famotidine 20 MG TAB PO SCH (10:34)
[2023-01-03] MEDS: Montelukast Sodium 10 mg Tablet PO SCH (10:35)
[2023-01-03] MEDS: Topiramate 25 MG TAB PO SCH (10:36)
[2023-01-03] MEDS: Insulin Glargine 30 UNITS/0.3 ML VIAL SC SCH (10:37)
[2023-01-03] MEDS: Famotidine/PF 20 mg/2ml Vial SLOW IVP SCH (10:38)
[2023-01-03] MEDS: HYDROcodone/Acetaminophen 5/325 mg Tablet PO PRN (10:44)
[2023-01-03] MEDS ORDERED: predniSONE 20 MG TAB PO SCH (12:30)
[2023-01-03 12:46] VITALS: BP 109/71; TEMP 97.9
[2023-01-03] MEDS: cefTRIAXone\\ROCEPHIN 1 GM in Sodium Chloride 0.9% 100 ML IVPB SCH (14:54)
[2023-01-03] MEDS ORDERED: Sodium Chloride 0.65% Nasal 44 ML BOT EA NARE SCH (15:00)
[2023-01-04] MEDS ORDERED: predniSONE 5 MG TAB PO SCH (09:00)
== END 2023-01-03 16:28 | disposition home or self-care (01) | DRG 193 ==
LOC: ERS 18:40 → ERHOLD 21:47 → OBSVTOIN 22:32 → 2NO 12-29 11:21
PROVIDERS: ADMIT Student in an Organized Health Care Education/Training Program; ATTEND Hospitalist
PROC: 5A0935A Assistance with Respiratory Ventilation, Less than 24 Consecutive Hours, High Flow/Velocity Cannula (ICD-10-PCS; principal; 2022-12-28)
DX: J18.9 Pneumonia, unspecified organism (principal); B46.5 Mucormycosis, unspecified; J96.01 Acute respiratory failure with hypoxia; J45.901 Unspecified asthma with (acute) exacerbation; I50.42 Chronic combined systolic (congestive) and diastolic (congestive) heart failure; E11.9 Type 2 diabetes mellitus without complications; E78.5 Hyperlipidemia, unspecified; E03.9 Hypothyroidism, unspecified; F41.9 Anxiety disorder, unspecified; E11.610 Type 2 diabetes mellitus with diabetic neuropathic arthropathy; Z88.8 Allergy status to other drugs, medicaments and biological substances; Z88.1 Allergy status to other antibiotic agents; Z79.899 Other long term (current) drug therapy; Z79.51 Long term (current) use of inhaled steroids; Z79.82 Long term (current) use of aspirin; Z79.4 Long term (current) use of insulin; Z98.890 Other specified postprocedural states
CPT/HCPCS: 36415; 36416; 71045; 71275; 80048; 80053; 82553; 82805; 83516; 83605; 83690; 83880; 84484; 85025; 85379; 86038; 86140; 86160; 86225; 86376; 87040; 93005; 94640; 94760; 96361; 96365; 96366; 96367; 96375; J0696; J1100; J1815; J2543; J2920; J3370-JW; J3475; J3490; J7512; J7620; Q9967; S0028

== ENCOUNTER 2023-01-18 11:42 | Inpatient (IN) | payer MEDICARE, MEDICAID ==
[2023-01-18] MEDS ORDERED: Magnesium 2 GM/50 ML BAG (IN WATER) ONE (12:13)
[2023-01-18] MEDS ORDERED: Ipratropium/Albuterol 3 ML NEB ONE ×2 (12:14→12:46)
[2023-01-18 12:34] LABS: Hematocrit 22.7 % (36.0-47.0); Hemoglobin 7.4 g/dL (12.0-16.0); Mean Corpuscular HGB CONC 32.6 g/dL (32.0-36.0); Mean Corpuscular Hemoglobin 27.9 pg (27.0-31.0); Mean Corpuscular Volume 85.7 fl (78.0-98.0); Platelet Count 315 10x3/uL (130-400); RBC Distribution Width 17.2 % (11.5-14.5); Red Blood Cell (RBC) Count 2.65 mill/uL (4.20-5.40); White Blood Cell (WBC) Count 19.5 10x3/uL (4.8-10.8)
[2023-01-18 12:36] LABS: Actual Bicarbonate (HCO3v) 16.3 mEq/L (22-28); Analyzer IN Cardio ER; Base Excess -7.8 mEq/L (-2.0 to +3.0); Calcium, Ionized (venous) 0.96 mmol/L (1.16-1.32); Chloride (VBG) 114 mmol/L (98-106); Hematocrit-VBG 24 % (36.0-47.0); Hemoglobin (Hb) 8.3 g/dL (11.7-16.0); Potassium (VBG) 3.91 mmol/L (3.70-5.30); Sodium 140.8 mmol/L (133-146); pH (venous) 7.387 (7.32-7.43)
[2023-01-18 12:37] LABS: Delete Auto Diff?? YES; Manual Diff?? YES
[2023-01-18 12:58] LABS: ALT (SGPT) 33 U/L (8-55); AST (SGOT) 52 U/L (5-34); Albumin 2.5 g/dL (3.5-5.0); Alkaline Phosphatase 193 U/L (40-110); Anion Gap 17 mmol/L (10-20); BUN (Urea Nitrogen) 73 mg/dL (9.8-20.1); Bilirubin, Total 0.7 mg/dL (0.2-1.2); Calc. Creatinine Clearance 0 mL/min (70-130); Calcium 8.1 mg/dL (7.8-10.44); Carbon Dioxide 16 mmol/L (22-29); Chloride 115 mmol/L (98-107); Estimated GFR 10; Globulin 3.3 g/dL (2.4-3.5); Glucose 85 mg/dL (70-105); Magnesium 1.8 mg/dL (1.6-2.6); Protein, Total 5.8 g/dL (6.0-8.3); Sodium 144 mmol/L (136-145)
[2023-01-18 12:59] LABS: Troponin I Less than 0.010 ng/mL (< 0.028)
[2023-01-18 13:11] LABS: Anisocytosis SLIGHT = 6-15 cells HPF (0-5); Band 4 % (5-11); Burr Cells MODERATE= 6-15 cells HPF (0-1); CellaVision Operator ID LAB.MJL; Eosinophils 1 % (0-10); Lymphocytes 17 % (21-51); Monocytes 3 % (0-10); Neutrophil 74 % (42-75); Ovalocytes SLIGHT = 2-5 cells HPF (0-1); Platelet Adequacy Comment Platelets Normal; Poikilocytosis MODERATE=16-30 cells HPF (0-5); Polychromasia MODERATE = 3-4 cells HPF (0-2); Reactive Lymphocytes 1 % (0-10); Spherocytes SLIGHT = 1-5 cells HPF (None Seen); Total Cell Count 99
[2023-01-18 13:14] LABS: HIV (1/2) Antibody/Antigen Non-Reactive (NonReactive); HIV 1/2 INDEX 0.16 S/CO (<1.00)
[2023-01-18 13:43] LABS: SARS-CoV-2 NAA Rapid Test Not Detected (NotDetected)
[2023-01-18] MEDS ORDERED: Cefepime 2 GM VIAL ONE (13:59)
[2023-01-18] MEDS ORDERED: Azithromycin 500 MG in Sodium Chloride 0.9% 250 ML 250 ML IVPB SCH (14:00)
[2023-01-18] MEDS ORDERED: Albumin 25% 25 GM/100 ML BOT IVPB SCH (15:00)
[2023-01-18 15:57] VITALS: BMI 20.6
[2023-01-18] MEDS: Albumin 25% 25 GM/100 ML BOT IVPB SCH (18:12)
[2023-01-18] MEDS ORDERED: Cefepime 2 GM in Sodium Chloride 0.9% 100 ML IVPB SCH (21:00)
[2023-01-19] MEDS: Albumin 25% 25 GM/100 ML BOT IVPB SCH ×3 (00:02→12:46)
[2023-01-19 06:08] LABS: Hematocrit 23.2 % (36.0-47.0); Hemoglobin 7.2 g/dL (12.0-16.0); Platelet Count 224 10x3/uL (130-400); RBC Distribution Width 18.2 % (11.5-14.5); Red Blood Cell (RBC) Count 2.57 mill/uL (4.20-5.40); White Blood Cell (WBC) Count 14.2 10x3/uL (4.8-10.8)
[2023-01-19 06:16] LABS: Delete Auto Diff?? YES; Manual Diff?? YES
[2023-01-19 06:17] LABS: Mean Corpuscular Volume 90.3 fl (78.0-98.0)
[2023-01-19 06:30] LABS: ALT (SGPT) 23 U/L (8-55); AST (SGOT) 40 U/L (5-34); Albumin 3.3 g/dL (3.5-5.0); Alkaline Phosphatase 138 U/L (40-110); Anion Gap 18 mmol/L (10-20); BUN (Urea Nitrogen) 69 mg/dL (9.8-20.1); Bilirubin, Direct 0.8 mg/dL (0.1-0.3); Calc. Creatinine Clearance 12 mL/min (70-130); Calcium 8.5 mg/dL (7.8-10.44); Carbon Dioxide 15 mmol/L (22-29); Chloride 114 mmol/L (98-107); Estimated GFR 11; Glucose 63 mg/dL (70-105); Iron 76 ug/dL (50-170); Iron Binding Capacity, Total 200 mcg/dL (265-497); Magnesium 2.5 mg/dL (1.6-2.6); Potassium 3.9 mmol/L (3.5-5.1); Sodium 143 mmol/L (136-145)
[2023-01-19 06:33] LABS: Hemoglobin A1c 6.8 % (4.0-6.0)
[2023-01-19 06:42] LABS: Anisocytosis MARKED = >30 cells HPF (0-5); Band 11 % (5-11); Burr Cells SLIGHT = 2-5 cells HPF (0-1); CellaVision Operator ID LAB.CLH1; Eosinophils 3 % (0-10); Hypochromia SLIGHT = 6-15 cells HPF (0-5); Lymphocytes 22 % (21-51); Neutrophil 62 % (42-75); Nucleated RBC (Manual Ct) 1 % (0); Platelet Adequacy Comment Platelets Normal; Poikilocytosis SLIGHT = 6-15 cells HPF (0-5); Polychromasia MODERATE = 3-4 cells HPF (0-2); RBC Morphology Within Normal Limits; Target Cells SLIGHT = 2-5 cells HPF (0-1); Total Cell Count 100
[2023-01-19 06:55] LABS: Ferritin 415.46 ng/mL (10-291); Thyroid Stimulating Hormone 1.1333 uIU/mL (0.35-4.94)
[2023-01-19 07:30] LABS: Bacteria/HPF None Seen HPF (None Seen); Bilirubin Negative (Negative); Blood, Urine Trace (Negative); Clarity Turbid (Clear); Glucose, Urine (Dipstick) Normal (Negative); Ketone, Urine Negative (Negative); Leukocyte Negative Leu/uL (Negative); Nitrite Negative (Negative); Protein, Urine (Dipstick) 30 mg/dL (Neg-Trace); RBC/HPF 0-3 HPF (0-3); Specific Gravity, Urine 1.012 (1.002-1.036); Squamous Epithelial 0-3 HPF (0-3); Urobilinogen Normal mg/dL (Less than 2); WBC/HPF 0-3 HPF (0-3)
[2023-01-19] MEDS ORDERED: Non-Formulary Item 1 EACH (Albuterol Sulfate Hfa (Or) 200 PUFF Inh) INH PRN (08:11)
[2023-01-19 08:16] LABS: Strep pneumo Urine Ag NEGATIVE (NEGATIVE)
[2023-01-19 08:18] LABS: Protein, Urine Random Quant 48 mg/dL (1-14); Sodium, Urine 67 mmol/L (Not Available)
[2023-01-19] MEDS ORDERED: Albuterol 200 PUFF (6.7GM INHALER) INH PRN (08:28)
[2023-01-19] MEDS ORDERED: Non-Formulary Item 1 EACH (Buspirone Hcl [Buspirone Hcl] 15 MG Tablet) PO SCH (09:00)
[2023-01-19] MEDS ORDERED: TOPIRAMATE 50 MG PO SCH (09:00)
[2023-01-19] MEDS ORDERED: Non-Formulary Item 1 EACH (Levetiracetam [Keppra] 250 MG Tab) PO SCH (09:00)
[2023-01-19] MEDS: Levothyroxine Sodium 25 MCG TAB PO SCH (09:38)
[2023-01-19] MEDS: levETIRAcetam 500 MG TAB PO SCH ×2 (09:38→20:30)
[2023-01-19] MEDS: Ezetimibe 10 MG TAB PO SCH (09:38)
[2023-01-19] MEDS: Montelukast Sodium 10 mg Tablet PO SCH (09:39)
[2023-01-19] MEDS: Fluticasone Propionate Nasal Spray 16 gm Bottle NASAL SCH (09:39)
[2023-01-19] MEDS: Aspirin 81 mg Enteric Coated Tablet PO SCH (09:39)
[2023-01-19] MEDS: Carvedilol 3.125 MG TAB PO SCH ×2 (09:39→20:32)
[2023-01-19] MEDS: busPIRone HCl 5 MG TAB PO SCH ×2 (09:39→20:31)
[2023-01-19] MEDS: Topiramate 25 MG TAB PO SCH ×2 (09:40→20:33)
[2023-01-19] MEDS ORDERED: Epoetin (ESRD) 20,000 UNITS/ML MDV SC SCH (10:00)
[2023-01-19] MEDS: Epoetin (ESRD) 10,000 UNITS/ML VIAL SC SCH (12:46)
[2023-01-19] MEDS: Cefepime 1 GM in Sodium Chloride 0.9% 100 ML IVPB SCH (15:27)
[2023-01-19] MEDS: Sodium Bicarbonate Tab 325 MG TAB PO SCH ×2 (15:28→20:32)
[2023-01-19 16:13] LABS: Legionella Urinary Ag Negative (Negative)
[2023-01-19] MEDS: Atorvastatin Calcium 40 MG TAB PO SCH (20:31)
[2023-01-19] MEDS ORDERED: Atorvastatin Calcium 20 MG TAB PO SCH (21:00)
[2023-01-20 05:16] LABS: Hematocrit 21.7 % (36.0-47.0); Hemoglobin 7.1 g/dL (12.0-16.0); Mean Corpuscular HGB CONC 32.7 g/dL (32.0-36.0); Mean Corpuscular Hemoglobin 27.8 pg (27.0-31.0); Mean Platelet Volume 13.1 fL (7.4-10.4); Platelet Count 246 10x3/uL (130-400); RBC Distribution Width 19.1 % (11.5-14.5); Red Blood Cell (RBC) Count 2.55 mill/uL (4.20-5.40); White Blood Cell (WBC) Count 16.3 10x3/uL (4.8-10.8)
[2023-01-20 05:52] LABS: Anion Gap 18 mmol/L (10-20); BUN (Urea Nitrogen) 70 mg/dL (9.8-20.1); Calc. Creatinine Clearance 13 mL/min (70-130); Calcium 8.8 mg/dL (7.8-10.44); Carbon Dioxide 15 mmol/L (22-29); Chloride 113 mmol/L (98-107); Estimated GFR 12; Glucose 102 mg/dL (70-105); Magnesium 2.1 mg/dL (1.6-2.6); Potassium 3.5 mmol/L (3.5-5.1); Sodium 142 mmol/L (136-145)
[2023-01-20 06:06] LABS: Delete Auto Diff?? YES; Manual Diff?? YES; Mean Corpuscular Volume 85.1 fl (78.0-98.0)
[2023-01-20] MEDS ORDERED: Non-Formulary Item 1 EACH (Pantoprazole Sodium [Protonix] 20 MG Tablet.Dr) PO SCH (07:30)
[2023-01-20 08:20] LABS: Band 5 % (5-11); Burr Cells MARKED = >16 cells HPF (0-1); CellaVision Operator ID LAB.GE; Hypochromia SLIGHT = 6-15 cells HPF (0-5); Lymphocytes 17 % (21-51); Monocytes 4 % (0-10); Neutrophil 74 % (42-75); Nucleated RBC (Manual Ct) 1 % (0); Platelet Adequacy Comment Platelets Normal; Poikilocytosis MODERATE=16-30 cells HPF (0-5); Polychromasia MODERATE = 3-4 cells HPF (0-2); Total Cell Count 100
[2023-01-20 08:26] LABS: Schistocytes MODERATE= 6-15 cells (100X) (0-1/hpf)
[2023-01-20] MEDS: Sodium Bicarbonate Tab 325 MG TAB PO SCH ×3 (08:41→21:37)
[2023-01-20] MEDS: levETIRAcetam 500 MG TAB PO SCH ×2 (08:41→21:37)
[2023-01-20] MEDS: Fluticasone Propionate Nasal Spray 16 gm Bottle NASAL SCH (08:41)
[2023-01-20] MEDS: Ferrous Sulfate 325 MG TAB PO SCH (08:41)
[2023-01-20] MEDS: busPIRone HCl 5 MG TAB PO SCH ×2 (08:42→21:36)
[2023-01-20] MEDS: Montelukast Sodium 10 mg Tablet PO SCH (08:42)
[2023-01-20] MEDS: Ezetimibe 10 MG TAB PO SCH (08:42)
[2023-01-20] MEDS: Azithromycin 250 MG TAB PO SCH (08:42)
[2023-01-20] MEDS: Aspirin 81 mg Enteric Coated Tablet PO SCH (08:42)
[2023-01-20] MEDS: Furosemide 40 MG TAB PO SCH (08:42)
[2023-01-20] MEDS: Topiramate 25 MG TAB PO SCH ×2 (08:43→21:37)
[2023-01-20] MEDS: Insulin Glargine 30 UNITS/0.3 ML VIAL SC SCH (08:43)
[2023-01-20] MEDS: Levothyroxine Sodium 25 MCG TAB PO SCH (08:43)
[2023-01-20] MEDS: Carvedilol 3.125 MG TAB PO SCH ×2 (08:45→21:38)
[2023-01-20] MEDS ORDERED: POSACONAZOLE 100 MG PO SCH (09:00)
[2023-01-20] MEDS ORDERED: [UNRECOGNIZED DRUG - OTHER] PO SCH (09:00)
[2023-01-20] MEDS ORDERED: FISH OIL PO SCH (09:00)
[2023-01-20] MEDS ORDERED: EPA PO SCH (09:00)
[2023-01-20] MEDS ORDERED: DHA PO SCH (09:00)
[2023-01-20] MEDS ORDERED: COQ10 PO SCH (09:00)
[2023-01-20] MEDS ORDERED: [UNRECOGNIZED DRUG - OTHER] DT SCH (09:00)
[2023-01-20] MEDS ORDERED: Non-Formulary Item 1 EACH (Insulin Detemir [Levemir] 100 UNIT/ML Vial) SQ SCH (09:00)
[2023-01-20] MEDS ORDERED: OMEGA PO SCH (09:00)
[2023-01-20] MEDS: Cefepime 1 GM in Sodium Chloride 0.9% 100 ML IVPB SCH (14:40)
[2023-01-20] MEDS: Atorvastatin Calcium 40 MG TAB PO SCH (21:36)
[2023-01-21 04:46] LABS: Mean Corpuscular HGB CONC 34.8 g/dL (32.0-36.0); Mean Corpuscular Hemoglobin 27.5 pg (27.0-31.0); Platelet Count 191 10x3/uL (130-400); RBC Distribution Width 16.8 % (11.5-14.5); Red Blood Cell (RBC) Count 3.67 mill/uL (4.20-5.40)
[2023-01-21 04:52] LABS: Delete Auto Diff?? YES; Hemoglobin 10.1 g/dL (12.0-16.0); Manual Diff?? YES
[2023-01-21 05:14] LABS: Anion Gap 13 mmol/L (10-20); BUN (Urea Nitrogen) 68 mg/dL (9.8-20.1); Calc. Creatinine Clearance 15 mL/min (70-130); Carbon Dioxide 18 mmol/L (22-29); Chloride 112 mmol/L (98-107); Estimated GFR 14; Glucose 142 mg/dL (70-105); Magnesium 1.8 mg/dL (1.6-2.6); Sodium 140 mmol/L (136-145)
[2023-01-21 05:51] LABS: Anisocytosis SLIGHT = 6-15 cells HPF (0-5); CellaVision Operator ID LAB.CLH1; Eosinophils 6 % (0-10); Hypochromia SLIGHT = 6-15 cells HPF (0-5); Lymphocytes 19 % (21-51); Metamyelocyte 1 % (0-0); Microcytosis SLIGHT = 6-15 cells HPF (0-5); Monocytes 1 % (0-10); Neutrophil 66 % (42-75); Nucleated RBC (Manual Ct) 1 % (0); Platelet Adequacy Comment Platelets Normal; Polychromasia MODERATE = 3-4 cells HPF (0-2); Reactive Lymphocytes 6 % (0-10); Schistocytes SLIGHT = 2-5 cells HPF (0-1); Total Cell Count 101
[2023-01-21] MEDS: Topiramate 25 MG TAB PO SCH ×2 (07:58→21:10)
[2023-01-21] MEDS: levETIRAcetam 500 MG TAB PO SCH ×2 (07:58→21:05)
[2023-01-21] MEDS: Sodium Bicarbonate Tab 325 MG TAB PO SCH ×3 (07:58→21:05)
[2023-01-21] MEDS: Aspirin 81 mg Enteric Coated Tablet PO SCH (07:59)
[2023-01-21] MEDS: Azithromycin 250 MG TAB PO SCH (07:59)
[2023-01-21] MEDS: Insulin Glargine 30 UNITS/0.3 ML VIAL SC SCH (07:59)
[2023-01-21] MEDS: busPIRone HCl 5 MG TAB PO SCH ×2 (07:59→21:05)
[2023-01-21] MEDS: Levothyroxine Sodium 25 MCG TAB PO SCH (07:59)
[2023-01-21] MEDS: Furosemide 40 MG TAB PO SCH (07:59)
[2023-01-21] MEDS: Carvedilol 3.125 MG TAB PO SCH ×2 (07:59→21:05)
[2023-01-21] MEDS: Montelukast Sodium 10 mg Tablet PO SCH (07:59)
[2023-01-21] MEDS: Ezetimibe 10 MG TAB PO SCH (07:59)
[2023-01-21] MEDS: Ferrous Sulfate 325 MG TAB PO SCH (07:59)
[2023-01-21] MEDS: Fluticasone Propionate Nasal Spray 16 gm Bottle NASAL SCH (08:00)
[2023-01-21] MEDS ORDERED: Potassium Chloride 20 MEQ TAB PO SCH (08:00)
[2023-01-21] MEDS: Albumin 25% 25 GM/100 ML BOT IVPB SCH ×3 (12:52→23:45)
[2023-01-21 14:59] LABS: Campy jejuni + coli by PCR Negative (Negative); STEC Shiga Toxin 1+2 Negative (Negative); Salmonella spp. by PCR Negative (Negative); Shigella spp + EIEC by PCR Negative (Negative)
[2023-01-21] MEDS: Cefepime 1 GM in Sodium Chloride 0.9% 100 ML IVPB SCH (15:31)
[2023-01-21] MEDS: Ondansetron PF 4 MG/2 ML Vial IVP PRN (18:45)
[2023-01-21] MEDS: Atorvastatin Calcium 40 MG TAB PO SCH (21:05)
[2023-01-22 04:43] LABS: %Basophils 0.6 % (0.0-1.0); %Lymphocytes 21.8 % (21.0-51.0); %Monocytes 4.2 % (0.0-10.0); %Neutrophils 61.5 % (42.0-75.0); Hematocrit 24.4 % (36.0-47.0); Hemoglobin 8.3 g/dL (12.0-16.0); Mean Corpuscular Hemoglobin 27.4 pg (27.0-31.0); Mean Corpuscular Volume 80.5 fl (78.0-98.0); Platelet Count 174 10x3/uL (130-400); Red Blood Cell (RBC) Count 3.03 mill/uL (4.20-5.40); White Blood Cell (WBC) Count 14.9 10x3/uL (4.8-10.8)
[2023-01-22 04:44] LABS: #Basophils 0.1 thou/uL (0.0-0.2); #Eosinphils 0.3 thou/uL (0.0-0.7); #Monocytes 0.6 thou/uL (0.11-0.59); #Neutrophils 9.2 thou/uL (1.40-6.50)
[2023-01-22 04:53] LABS: RBC Distribution Width 18.5 % (11.5-14.5)
[2023-01-22 05:06] LABS: Anion Gap 17 mmol/L (10-20); BUN (Urea Nitrogen) 62 mg/dL (9.8-20.1); Calc. Creatinine Clearance 17 mL/min (70-130); Calcium 9.2 mg/dL (7.8-10.44); Carbon Dioxide 18 mmol/L (22-29); Chloride 112 mmol/L (98-107); Estimated GFR 16; Glucose 132 mg/dL (70-105); Magnesium 1.8 mg/dL (1.6-2.6); Sodium 144 mmol/L (136-145)
[2023-01-22 05:28] LABS: Ovalocytes SLIGHT = 2-5 cells HPF (0-1); Platelet Adequacy Comment Platelets Normal; Poikilocytosis SLIGHT = 6-15 cells HPF (0-5); Polychromasia SLIGHT = 2-3 cells HPF (0-2); Schistocytes SLIGHT = 2-5 cells HPF (0-1)
[2023-01-22] MEDS: Albumin 25% 25 GM/100 ML BOT IVPB SCH ×3 (07:07→18:32)
[2023-01-22] MEDS ORDERED: Potassium Chloride 20 MEQ TAB PO SCH (07:30)
[2023-01-22] MEDS: Azithromycin 250 MG TAB PO SCH (09:05)
[2023-01-22] MEDS: Montelukast Sodium 10 mg Tablet PO SCH (09:05)
[2023-01-22] MEDS: busPIRone HCl 5 MG TAB PO SCH ×2 (09:06→20:50)
[2023-01-22] MEDS: Ezetimibe 10 MG TAB PO SCH (09:07)
[2023-01-22] MEDS: Furosemide 40 MG TAB PO SCH (09:07)
[2023-01-22] MEDS: levETIRAcetam 500 MG TAB PO SCH ×2 (09:07→20:50)
[2023-01-22] MEDS: Sodium Bicarbonate Tab 325 MG TAB PO SCH ×3 (09:08→20:49)
[2023-01-22] MEDS: Levothyroxine Sodium 25 MCG TAB PO SCH (09:08)
[2023-01-22] MEDS: Aspirin 81 mg Enteric Coated Tablet PO SCH (09:09)
[2023-01-22] MEDS: Ferrous Sulfate 325 MG TAB PO SCH (09:10)
[2023-01-22] MEDS: Topiramate 25 MG TAB PO SCH ×2 (09:10→20:51)
[2023-01-22] MEDS: Insulin Glargine 30 UNITS/0.3 ML VIAL SC SCH (09:12)
[2023-01-22] MEDS: Fluticasone Propionate Nasal Spray 16 gm Bottle NASAL SCH (09:13)
[2023-01-22] MEDS: Ondansetron PF 4 MG/2 ML Vial IVP PRN ×2 (09:21→16:15)
[2023-01-22] MEDS: Carvedilol 3.125 MG TAB PO SCH ×2 (10:32→20:50)
[2023-01-22] MEDS: Ipratropium/Albuterol 3 ML NEB NEB SCH ×3 (13:10→23:07)
[2023-01-22] MEDS: Cefepime 1 GM in Sodium Chloride 0.9% 100 ML IVPB SCH (16:16)
[2023-01-22] MEDS: Atorvastatin Calcium 40 MG TAB PO SCH (20:49)
[2023-01-23] MEDS: Ondansetron PF 4 MG/2 ML Vial IVP PRN ×3 (00:24→22:03)
[2023-01-23] MEDS: Loperamide HCl 2 MG CAP PO PRN ×2 (00:24→12:45)
[2023-01-23] MEDS: Albumin 25% 25 GM/100 ML BOT IVPB SCH ×2 (00:24→05:34)
[2023-01-23] MEDS ORDERED: HYDROcodone/Acetaminophen 5/325 mg Tablet PO SCH (02:15)
[2023-01-23 04:15] LABS: Hematocrit 21.2 % (36.0-47.0); Hemoglobin 7.3 g/dL (12.0-16.0); Mean Corpuscular HGB CONC 34.4 g/dL (32.0-36.0); Mean Corpuscular Hemoglobin 27.2 pg (27.0-31.0); Mean Corpuscular Volume 79.1 fl (78.0-98.0); Platelet Count 232 10x3/uL (130-400); RBC Distribution Width 19.6 % (11.5-14.5); Red Blood Cell (RBC) Count 2.68 mill/uL (4.20-5.40); White Blood Cell (WBC) Count 15.1 10x3/uL (4.8-10.8)
[2023-01-23 04:21] LABS: Delete Auto Diff?? YES; Manual Diff?? YES
[2023-01-23 04:43] LABS: Anisocytosis MODERATE=16-30 cells HPF (0-5); Band 4 % (5-11); Eosinophils 1 % (0-10); Hypochromia SLIGHT = 6-15 cells HPF (0-5); Lymphocytes 19 % (21-51); Macrocytosis SLIGHT = 6-15 cells HPF (0-5); Microcytosis SLIGHT = 6-15 cells HPF (0-5); Monocytes 6 % (0-10); Myelocyte 1 % (0-0); Neutrophil 68 % (42-75); Nucleated RBC (Manual Ct) 1 % (0); Platelet Adequacy Comment Platelets Normal; Poikilocytosis MODERATE=16-30 cells HPF (0-5); Polychromasia SLIGHT = 2-3 cells HPF (0-2); Schistocytes SLIGHT = 2-5 cells HPF (0-1); Sickle Cells SLIGHT = 1-5 cells HPF (None Seen); Total Cell Count 101
[2023-01-23 04:44] LABS: Anion Gap 16 mmol/L (10-20); BUN (Urea Nitrogen) 56 mg/dL (9.8-20.1); Calc. Creatinine Clearance 18 mL/min (70-130); Calcium 9.6 mg/dL (7.8-10.44); Carbon Dioxide 20 mmol/L (22-29); CellaVision Operator ID LAB.CLH1; Chloride 112 mmol/L (98-107); Estimated GFR 18; Glucose 128 mg/dL (70-105); Magnesium 1.7 mg/dL (1.6-2.6); Potassium 2.7 mmol/L (3.5-5.1); Sodium 145 mmol/L (136-145)
[2023-01-23] MEDS: Furosemide 40 MG TAB PO SCH (07:39)
[2023-01-23] MEDS: Ipratropium/Albuterol 3 ML NEB NEB SCH ×4 (07:44→22:59)
[2023-01-23] MEDS ORDERED: Magnesium Sulfate 4 GM in Sodium Chloride 0.9% 250 ML 250 ML IVPB SCH (08:45)
[2023-01-23] MEDS: Aspirin 81 mg Enteric Coated Tablet PO SCH (09:01)
[2023-01-23] MEDS: busPIRone HCl 5 MG TAB PO SCH ×2 (09:01→21:51)
[2023-01-23] MEDS: Ferrous Sulfate 325 MG TAB PO SCH (09:01)
[2023-01-23] MEDS: levETIRAcetam 500 MG TAB PO SCH ×2 (09:03→21:49)
[2023-01-23] MEDS: Potassium Chloride 20 MEQ TAB PO SCH (09:03)
[2023-01-23] MEDS: Carvedilol 3.125 MG TAB PO SCH ×2 (09:03→21:49)
[2023-01-23] MEDS: Ezetimibe 10 MG TAB PO SCH (09:03)
[2023-01-23] MEDS: Azithromycin 250 MG TAB PO SCH (09:03)
[2023-01-23] MEDS: Sodium Bicarbonate Tab 325 MG TAB PO SCH ×3 (09:04→21:49)
[2023-01-23] MEDS: Insulin Glargine 30 UNITS/0.3 ML VIAL SC SCH (09:05)
[2023-01-23] MEDS: Montelukast Sodium 10 mg Tablet PO SCH (09:05)
[2023-01-23] MEDS: Fluticasone Propionate Nasal Spray 16 gm Bottle NASAL SCH (09:06)
[2023-01-23] MEDS: Topiramate 25 MG TAB PO SCH ×2 (09:08→21:50)
[2023-01-23] MEDS: Levothyroxine Sodium 25 MCG TAB PO SCH (09:10)
[2023-01-23] MEDS ORDERED: Magnesium Sulfate In Water 4 GM in Premix Bag 1 BAG IVPB SCH (10:00)
[2023-01-23] MEDS: Cefepime 1 GM in Sodium Chloride 0.9% 100 ML IVPB SCH (15:39)
[2023-01-23] MEDS: Acetaminophen 325 MG TAB PO PRN (15:55)
[2023-01-23] MEDS: Atorvastatin Calcium 40 MG TAB PO SCH (21:49)
[2023-01-24 05:38] LABS: Hematocrit 21.5 % (36.0-47.0); Hemoglobin 7.2 g/dL (12.0-16.0); Mean Corpuscular HGB CONC 33.5 g/dL (32.0-36.0); Mean Corpuscular Hemoglobin 27.2 pg (27.0-31.0); Mean Corpuscular Volume 81.1 fl (78.0-98.0); Platelet Count 258 10x3/uL (130-400); RBC Distribution Width 21.4 % (11.5-14.5); Red Blood Cell (RBC) Count 2.65 mill/uL (4.20-5.40); White Blood Cell (WBC) Count 16.7 10x3/uL (4.8-10.8)
[2023-01-24 05:56] LABS: Manual Diff?? YES
[2023-01-24 05:57] LABS: Delete Auto Diff?? YES
[2023-01-24 06:03] LABS: Anion Gap 13 mmol/L (10-20); BUN (Urea Nitrogen) 47 mg/dL (9.8-20.1); Calc. Creatinine Clearance 22 mL/min (70-130); Calcium 9.5 mg/dL (7.8-10.44); Carbon Dioxide 21 mmol/L (22-29); Chloride 112 mmol/L (98-107); Estimated GFR 22; Glucose 123 mg/dL (70-105); Potassium 2.9 mmol/L (3.5-5.1); Sodium 143 mmol/L (136-145)
[2023-01-24 06:33] LABS: Anisocytosis MODERATE=16-30 cells HPF (0-5); Band 2 % (5-11); Burr Cells MODERATE= 6-15 cells HPF (0-1); CellaVision Operator ID LAB.JMM; Eosinophils 6 % (0-10); Large Platelets 5.9 % (0-5); Lymphocytes 20 % (21-51); Macrocytosis SLIGHT = 6-15 cells HPF (0-5); Microcytosis SLIGHT = 6-15 cells HPF (0-5); Monocytes 3 % (0-10); Myelocyte 1 % (0-0); Neutrophil 67 % (42-75); Nucleated RBC (Manual Ct) 2 % (0); Plasma Cells 1 % (0-0); Platelet Adequacy Comment Platelets Normal; Poikilocytosis MODERATE=16-30 cells HPF (0-5); Polychromasia MODERATE = 3-4 cells HPF (0-2); Schistocytes SLIGHT = 2-5 cells HPF (0-1); Smudge Cells 6.9 %; Total Cell Count 101
[2023-01-24] MEDS: Ipratropium/Albuterol 3 ML NEB NEB SCH ×4 (07:05→23:40)
[2023-01-24] MEDS ORDERED: Potassium Chloride 20 MEQ TAB PO SCH (08:00)
[2023-01-24] MEDS ORDERED: Furosemide 20 MG TAB PO SCH (08:12)
[2023-01-24] MEDS: Ondansetron PF 4 MG/2 ML Vial IVP PRN (09:22)
[2023-01-24] MEDS: Fluticasone Propionate Nasal Spray 16 gm Bottle NASAL SCH (09:26)
[2023-01-24] MEDS: Topiramate 25 MG TAB PO SCH ×3 (09:27→22:23)
[2023-01-24] MEDS: Sodium Bicarbonate Tab 325 MG TAB PO SCH ×3 (09:27→22:20)
[2023-01-24] MEDS: Aspirin 81 mg Enteric Coated Tablet PO SCH (09:27)
[2023-01-24] MEDS: Insulin Glargine 30 UNITS/0.3 ML VIAL SC SCH (09:28)
[2023-01-24] MEDS: Carvedilol 3.125 MG TAB PO SCH ×2 (09:29→22:21)
[2023-01-24] MEDS: levETIRAcetam 500 MG TAB PO SCH ×2 (09:29→22:21)
[2023-01-24] MEDS: Ezetimibe 10 MG TAB PO SCH (09:30)
[2023-01-24] MEDS: busPIRone HCl 5 MG TAB PO SCH ×2 (09:30→22:20)
[2023-01-24] MEDS: Potassium Chloride 20 MEQ TAB PO SCH (09:30)
[2023-01-24] MEDS: Ferrous Sulfate 325 MG TAB PO SCH (09:31)
[2023-01-24] MEDS: Levothyroxine Sodium 25 MCG TAB PO SCH (09:31)
[2023-01-24] MEDS: Montelukast Sodium 10 mg Tablet PO SCH (09:31)
[2023-01-24 13:13] LABS: ALT (SGPT) 15 U/L (8-55); AST (SGOT) 25 U/L (5-34); Bilirubin, Total 1.5 mg/dL (0.2-1.2)
[2023-01-24] MEDS: Acetaminophen 325 MG TAB PO PRN ×2 (17:23→22:19)
[2023-01-24] MEDS: Atorvastatin Calcium 40 MG TAB PO SCH (22:20)
[2023-01-24] MEDS: Furosemide 40 MG TAB PO SCH (22:31)
[2023-01-25] MEDS: Ondansetron PF 4 MG/2 ML Vial IVP PRN ×3 (00:55→20:53)
[2023-01-25 05:43] LABS: Hematocrit 22.9 % (36.0-47.0); Hemoglobin 7.6 g/dL (12.0-16.0); Mean Corpuscular HGB CONC 33.2 g/dL (32.0-36.0); Mean Corpuscular Hemoglobin 27.3 pg (27.0-31.0); Mean Corpuscular Volume 82.4 fl (78.0-98.0); Platelet Count 330 10x3/uL (130-400); RBC Distribution Width 22.2 % (11.5-14.5); Red Blood Cell (RBC) Count 2.78 mill/uL (4.20-5.40); White Blood Cell (WBC) Count 15.3 10x3/uL (4.8-10.8)
[2023-01-25 05:55] LABS: Delete Auto Diff?? YES; Manual Diff?? YES
[2023-01-25 06:07] LABS: Anion Gap 12 mmol/L (10-20); BUN (Urea Nitrogen) 40 mg/dL (9.8-20.1); Calc. Creatinine Clearance 25 mL/min (70-130); Calcium 9.5 mg/dL (7.8-10.44); Carbon Dioxide 22 mmol/L (22-29); Chloride 110 mmol/L (98-107); Estimated GFR 26; Glucose 110 mg/dL (70-105); Magnesium 2.4 mg/dL (1.6-2.6); Potassium 3.1 mmol/L (3.5-5.1); Sodium 141 mmol/L (136-145)
[2023-01-25 06:26] LABS: Anisocytosis MODERATE=16-30 cells HPF (0-5); Band 2 % (5-11); Burr Cells SLIGHT = 2-5 cells HPF (0-1); CellaVision Operator ID lab.abc; Eosinophils 1 % (0-10); Lymphocytes 22 % (21-51); Metamyelocyte 2 % (0-0); Microcytosis SLIGHT = 6-15 cells HPF (0-5); Monocytes 3 % (0-10); Neutrophil 69 % (42-75); Nucleated RBC (Manual Ct) 1 % (0); Platelet Adequacy Comment Platelets Normal; Poikilocytosis MODERATE=16-30 cells HPF (0-5); Polychromasia SLIGHT = 2-3 cells HPF (0-2); Schistocytes MODERATE= 6-15 cells HPF (0-1); Spherocytes SLIGHT = 1-5 cells HPF (None Seen); Total Cell Count 100
[2023-01-25] MEDS: Sodium Bicarbonate Tab 325 MG TAB PO SCH ×3 (08:57→20:51)
[2023-01-25] MEDS: Potassium Chloride 20 MEQ TAB PO SCH (08:58)
[2023-01-25] MEDS: Montelukast Sodium 10 mg Tablet PO SCH (08:59)
[2023-01-25] MEDS: busPIRone HCl 5 MG TAB PO SCH ×2 (08:59→20:52)
[2023-01-25] MEDS: Ezetimibe 10 MG TAB PO SCH (08:59)
[2023-01-25] MEDS: Ferrous Sulfate 325 MG TAB PO SCH (08:59)
[2023-01-25] MEDS: levETIRAcetam 500 MG TAB PO SCH ×2 (08:59→20:52)
[2023-01-25] MEDS: Levothyroxine Sodium 25 MCG TAB PO SCH (08:59)
[2023-01-25] MEDS: Aspirin 81 mg Enteric Coated Tablet PO SCH (09:00)
[2023-01-25] MEDS: Topiramate 25 MG TAB PO SCH ×2 (09:00→20:51)
[2023-01-25] MEDS: Furosemide 20 MG TAB PO SCH (09:00)
[2023-01-25] MEDS: Carvedilol 3.125 MG TAB PO SCH ×2 (09:05→20:52)
[2023-01-25] MEDS: Insulin Glargine 30 UNITS/0.3 ML VIAL SC SCH (09:06)
[2023-01-25] MEDS: Fluticasone Propionate Nasal Spray 16 gm Bottle NASAL SCH (09:07)
[2023-01-25] MEDS: Ipratropium/Albuterol 3 ML NEB NEB SCH ×4 (10:59→23:54)
[2023-01-25] MEDS: Atorvastatin Calcium 40 MG TAB PO SCH (20:51)
[2023-01-25] MEDS: Acetaminophen 325 MG TAB PO PRN (20:53)
[2023-01-26 04:50] LABS: Hematocrit 22.9 % (36.0-47.0); Hemoglobin 7.6 g/dL (12.0-16.0); Mean Corpuscular HGB CONC 33.2 g/dL (32.0-36.0); Mean Corpuscular Hemoglobin 27.4 pg (27.0-31.0); Mean Corpuscular Volume 82.7 fl (78.0-98.0); Mean Platelet Volume 13.1 fL (7.4-10.4); Platelet Count 465 10x3/uL (130-400); RBC Distribution Width 23.6 % (11.5-14.5); Red Blood Cell (RBC) Count 2.77 mill/uL (4.20-5.40); White Blood Cell (WBC) Count 13.2 10x3/uL (4.8-10.8)
[2023-01-26 05:06] LABS: Anion Gap 11 mmol/L (10-20); BUN (Urea Nitrogen) 34 mg/dL (9.8-20.1); Calc. Creatinine Clearance 31 mL/min (70-130); Calcium 9.3 mg/dL (7.8-10.44); Carbon Dioxide 23 mmol/L (22-29); Chloride 110 mmol/L (98-107); Estimated GFR 34; Glucose 112 mg/dL (70-105); Potassium 3.5 mmol/L (3.5-5.1); Sodium 140 mmol/L (136-145)
[2023-01-26 05:10] LABS: Delete Auto Diff?? YES; Manual Diff?? YES
[2023-01-26 06:05] LABS: Anisocytosis MARKED = >30 cells HPF (0-5); Band 3 % (5-11); Burr Cells SLIGHT = 2-5 cells HPF (0-1); CellaVision Operator ID LAB.JMM; Eosinophils 1 % (0-10); Large Platelets 0.9 % (0-5); Lymphocytes 28 % (21-51); Macrocytosis SLIGHT = 6-15 cells HPF (0-5); Metamyelocyte 2 % (0-0); Microcytosis SLIGHT = 6-15 cells HPF (0-5); Monocytes 6 % (0-10); Myelocyte 1 % (0-0); Neutrophil 59 % (42-75); Nucleated RBC (Manual Ct) 3 % (0); Platelet Adequacy Comment Platelets Normal; Poikilocytosis MODERATE=16-30 cells HPF (0-5); Polychromasia MODERATE = 3-4 cells HPF (0-2); Schistocytes MARKED= >16 cells HPF (0-1); Smudge Cells 9.6 %; Total Cell Count 115
[2023-01-26] MEDS: Ipratropium/Albuterol 3 ML NEB NEB SCH ×4 (07:10→23:47)
[2023-01-26] MEDS ORDERED: Dexmedetomidine 200 MCG/2 ML VIAL ONE (07:28)
[2023-01-26] MEDS ORDERED: fentaNYL PF 100 MCG/2 ML SYRINGE ONE (07:28)
[2023-01-26] MEDS ORDERED: Bupivacaine 0.25% HCL 30 ML VIAL ONE (07:47)
[2023-01-26] MEDS ORDERED: EPINEPHrine 1 MG/ML AMP ONE (07:47)
[2023-01-26] MEDS ORDERED: Sodium Chloride 0.9% 100 ML ONE (08:14)
[2023-01-26] MEDS ORDERED: CEFAZOLIN 2 GM VIAL ONE (08:14)
[2023-01-26] MEDS ORDERED: Glycopyrrolate 0.2 MG/ML 5 ML SYRINGE ONE (08:30)
[2023-01-26] MEDS ORDERED: Ondansetron PF 4 MG/2 ML Vial ONE (08:30)
[2023-01-26] MEDS ORDERED: PROPOFOL 200 MG/20 ML VIAL ONE (08:30)
[2023-01-26] MEDS ORDERED: NEOSTIGMINE 3 MG/3 ML SYR 3 MG/3 ML SYRINGE ONE (08:30)
[2023-01-26] MEDS ORDERED: Metoclopramide HCl 10 MG/2 ML VIAL ONE (08:30)
[2023-01-26] MEDS ORDERED: Rocuronium Bromide 10 MG/ML (10ML VIAL) ONE (08:30)
[2023-01-26] MEDS: Aspirin 81 mg Enteric Coated Tablet PO SCH (08:33)
[2023-01-26] MEDS: Furosemide 20 MG TAB PO SCH (08:33)
[2023-01-26] MEDS: busPIRone HCl 5 MG TAB PO SCH ×2 (08:33→21:27)
[2023-01-26] MEDS: Potassium Chloride 20 MEQ TAB PO SCH (08:33)
[2023-01-26] MEDS: Carvedilol 3.125 MG TAB PO SCH ×2 (08:33→21:27)
[2023-01-26] MEDS: Ferrous Sulfate 325 MG TAB PO SCH (08:33)
[2023-01-26] MEDS: Insulin Glargine 30 UNITS/0.3 ML VIAL SC SCH (08:34)
[2023-01-26] MEDS: Fluticasone Propionate Nasal Spray 16 gm Bottle NASAL SCH (08:34)
[2023-01-26] MEDS: levETIRAcetam 500 MG TAB PO SCH ×2 (08:34→21:27)
[2023-01-26] MEDS: Ezetimibe 10 MG TAB PO SCH (08:34)
[2023-01-26] MEDS: Topiramate 25 MG TAB PO SCH ×2 (08:35→21:28)
[2023-01-26] MEDS: Levothyroxine Sodium 25 MCG TAB PO SCH (08:35)
[2023-01-26] MEDS: Sodium Bicarbonate Tab 325 MG TAB PO SCH ×3 (08:35→21:27)
[2023-01-26] MEDS: Montelukast Sodium 10 mg Tablet PO SCH (08:35)
[2023-01-26] MEDS ORDERED: SUGAMMADEX SODIUM 200 MG/2 ML VIAL ONE (09:22)
[2023-01-26] MEDS ORDERED: fentaNYL 50 mcg/mL 1 mL Vial ONE (09:37)
[2023-01-26] MEDS ORDERED: Promethazine HCl 25 MG/ML VIAL IM PRN (09:39)
[2023-01-26] MEDS ORDERED: Ondansetron HCl/PF 4 MG/2 ML Vial IVP PRN (09:39)
[2023-01-26] MEDS ORDERED: Amlodipine 5 MG TAB PO SCH (10:45)
[2023-01-26] MEDS: Epoetin (ESRD) 10,000 UNITS/ML VIAL SC SCH (13:59)
[2023-01-26] MEDS: Isosorbide Dinitrate 20 MG TAB PO SCH ×2 (15:24→21:27)
[2023-01-26] MEDS: hydrALAZINE 25 MG TAB PO SCH ×2 (15:24→21:28)
[2023-01-26] MEDS: Acetaminophen 325 MG TAB PO PRN (21:27)
[2023-01-26] MEDS: Atorvastatin Calcium 40 MG TAB PO SCH (21:27)
[2023-01-27] MEDS: Ondansetron PF 4 MG/2 ML Vial IVP PRN (01:48)
[2023-01-27] MEDS: Ipratropium/Albuterol 3 ML NEB NEB SCH ×2 (07:10→14:06)
[2023-01-27] MEDS ORDERED: Amlodipine 5 MG TAB PO SCH (09:00)
[2023-01-27] MEDS: busPIRone HCl 5 MG TAB PO SCH (09:06)
[2023-01-27] MEDS: Ferrous Sulfate 325 MG TAB PO SCH (09:06)
[2023-01-27] MEDS: Potassium Chloride 20 MEQ TAB PO SCH (09:06)
[2023-01-27] MEDS: Ezetimibe 10 MG TAB PO SCH (09:06)
[2023-01-27] MEDS: Sodium Bicarbonate Tab 325 MG TAB PO SCH ×2 (09:07→14:39)
[2023-01-27] MEDS: Levothyroxine Sodium 25 MCG TAB PO SCH (09:07)
[2023-01-27] MEDS: levETIRAcetam 500 MG TAB PO SCH (09:07)
[2023-01-27] MEDS: Furosemide 20 MG TAB PO SCH (09:07)
[2023-01-27] MEDS: Isosorbide Dinitrate 20 MG TAB PO SCH ×2 (09:08→14:39)
[2023-01-27] MEDS: hydrALAZINE 25 MG TAB PO SCH ×2 (09:08→14:38)
[2023-01-27] MEDS: Carvedilol 3.125 MG TAB PO SCH (09:08)
[2023-01-27] MEDS: Montelukast Sodium 10 mg Tablet PO SCH (09:08)
[2023-01-27] MEDS: Insulin Glargine 30 UNITS/0.3 ML VIAL SC SCH (09:09)
[2023-01-27] MEDS: Topiramate 25 MG TAB PO SCH (09:09)
[2023-01-27] MEDS: Aspirin 81 mg Enteric Coated Tablet PO SCH (09:10)
[2023-01-27] MEDS: Fluticasone Propionate Nasal Spray 16 gm Bottle NASAL SCH (09:10)
[2023-01-27] MEDS: Acetaminophen 325 MG TAB PO PRN (09:32)
[2023-01-27 11:09] LABS: ALT (SGPT) 16 U/L (8-55); AST (SGOT) 37 U/L (5-34); Albumin 3.9 g/dL (3.5-5.0); Alkaline Phosphatase 117 U/L (40-110); Anion Gap 13 mmol/L (10-20); BUN (Urea Nitrogen) 30 mg/dL (9.8-20.1); Bilirubin, Total 0.7 mg/dL (0.2-1.2); Calc. Creatinine Clearance 34 mL/min (70-130); Carbon Dioxide 21 mmol/L (22-29); Chloride 106 mmol/L (98-107); Estimated GFR 38; Glucose 157 mg/dL (70-105); Potassium 3.9 mmol/L (3.5-5.1); Protein, Total 5.9 g/dL (6.0-8.3); Sodium 136 mmol/L (136-145)
[2023-01-27 13:33] VITALS: BP 123/65; TEMP 98.7
[2023-01-27] MEDS ORDERED: Senokot S 8.6-50 MG TAB PO SCH (21:00)
[2023-01-28] MEDS ORDERED: Levothyroxine Sodium 25 MCG TAB PO SCH (06:00)
[2023-01-28] MEDS ORDERED: Polyethylene Glycol 3350 17 GM Packet PO SCH (09:00)
== END 2023-01-27 18:25 | disposition home or self-care (01) | DRG 987 ==
LOC: SUATTDRO 11:42 → ERS 11:42 → 2NO 14:03
PROVIDERS: ADMIT Family Medicine; ATTEND Hospitalist
PROC: 30233J1 Transfusion of Nonautologous Serum Albumin into Peripheral Vein, Percutaneous Approach (ICD-10-PCS; 2023-01-18)
PROC: 30233N1 Transfusion of Nonautologous Red Blood Cells into Peripheral Vein, Percutaneous Approach (ICD-10-PCS; 2023-01-20)
PROC: 0FT44ZZ Resection of Gallbladder, Percutaneous Endoscopic Approach (ICD-10-PCS; principal; 2023-01-26)
DX: N17.9 Acute kidney failure, unspecified (principal); I50.23 Acute on chronic systolic (congestive) heart failure; J18.9 Pneumonia, unspecified organism; J96.01 Acute respiratory failure with hypoxia; I13.0 Hypertensive heart and chronic kidney disease with heart failure and stage 1 through stage 4 chronic kidney disease, or unspecified chronic kidney disease; R04.2 Hemoptysis; J84.9 Interstitial pulmonary disease, unspecified; K80.00 Calculus of gallbladder with acute cholecystitis without obstruction; I47.20 Ventricular tachycardia, unspecified; I42.8 Other cardiomyopathies; E87.20 Acidosis, unspecified; E03.9 Hypothyroidism, unspecified; E78.5 Hyperlipidemia, unspecified; J45.909 Unspecified asthma, uncomplicated; F41.9 Anxiety disorder, unspecified; E11.22 Type 2 diabetes mellitus with diabetic chronic kidney disease; Z20.822 Contact with and (suspected) exposure to COVID-19; N18.30 Chronic kidney disease, stage 3 unspecified; D63.1 Anemia in chronic kidney disease; E87.6 Hypokalemia; Z98.890 Other specified postprocedural states; Z88.8 Allergy status to other drugs, medicaments and biological substances; Z95.0 Presence of cardiac pacemaker
CPT/HCPCS: 36415; 36416; 36430; 70486; 71045; 74176; 76705; 80048; 80053; 80076; 81001; 82010; 82247; 82570; 82728; 82805; 83036; 83540; 83550; 83605; 83630; 83735; 83880; 84075; 84156; 84300; 84443; 84450; 84460; 84484; 84540; 85025; 85046; 85060; 86850; 86900; 86901; 87040; 87081; 87324; 87389; 87449; 87505; 87899; 88304; 89190; 93005; 94640; 96365; 96375; C1889; J0171; J0692; J1815; J2405; J2704; J2765; J3010; J3475; J3490; J7620; P9016; P9047; Q4081; S0020

== ENCOUNTER 2023-03-18 16:29 | Inpatient (IN) | payer MEDICARE, MEDICAID ==
[~2023-03-18 16:29] MED LIST changes: -Iopamidol-370 76% 500 ML 1 ML ONE; +Iopamidol-370 76% 500 ML MDV (1 ML CHARGE) ONE
[2023-03-18 17:57] LABS: Hematocrit 28.6 % (36.0-47.0); Hemoglobin 8.7 g/dL (12.0-16.0); Mean Corpuscular HGB CONC 30.4 g/dL (32.0-36.0); Mean Corpuscular Hemoglobin 29.3 pg (27.0-31.0); Mean Corpuscular Volume 96.3 fl (78.0-98.0); Mean Platelet Volume 10.6 fL (7.4-10.4); Platelet Count 270 10x3/uL (130-400); RBC Distribution Width 18.5 % (11.5-14.5); Red Blood Cell (RBC) Count 2.97 mill/uL (4.20-5.40)
[2023-03-18 18:02] LABS: Delete Auto Diff?? YES; Manual Diff?? YES
[2023-03-18 18:07] LABS: SARS-CoV-2 NAA Rapid Test Not Detected (NotDetected)
[2023-03-18] MEDS ORDERED: Cefepime 2 GM VIAL ONE (18:18)
[2023-03-18] MEDS ORDERED: Vancomycin 1 GM/200 ML (FROZEN) BAG ONE (18:18)
[2023-03-18] MEDS ORDERED: NOREPINEPHRINE 8 MG/250 ML-D5W 0 ML ONE ×2 (18:18→22:13)
[2023-03-18 18:20] LABS: ALT (SGPT) 14 U/L (8-55); AST (SGOT) 13 U/L (5-34); Albumin 2.8 g/dL (3.5-5.0); Alkaline Phosphatase 125 U/L (40-110); Anion Gap 13 mmol/L (10-20); BUN (Urea Nitrogen) 17 mg/dL (9.8-20.1); Bilirubin, Total 0.4 mg/dL (0.2-1.2); Calc. Creatinine Clearance 0 mL/min (70-130); Carbon Dioxide 14 mmol/L (22-29); Chloride 112 mmol/L (98-107); Estimated GFR 30; Globulin 2.9 g/dL (2.4-3.5); Glucose 73 mg/dL (70-105); Lipase 23 U/L (8-78); Potassium 3.4 mmol/L (3.5-5.1); Protein, Total 5.7 g/dL (6.0-8.3); Sodium 136 mmol/L (136-145)
[2023-03-18 18:28] LABS: Anisocytosis SLIGHT = 6-15 cells HPF (0-5); Burr Cells MODERATE= 6-15 cells HPF (0-1); CellaVision Operator ID LAB.MJL; Ovalocytes SLIGHT = 2-5 cells HPF (0-1); Platelet Adequacy Comment Platelets Normal; Poikilocytosis MODERATE=16-30 cells HPF (0-5); Polychromasia SLIGHT = 2-3 cells HPF (0-2)
[2023-03-18 18:32] LABS: Band 27 % (5-11); Lymphocytes 7 % (21-51); Monocytes 1 % (0-10); Neutrophil 65 % (42-75); Total Cell Count 100
[2023-03-18 18:49] LABS: Troponin I Less than 0.010 ng/mL (< 0.028)
[2023-03-18 19:19] LABS: Bilirubin Negative (Negative); Blood, Urine Trace (Negative); Glucose, Urine (Dipstick) Negative (Negative); Ketone, Urine Negative (Negative); Leukocyte Negative (Negative); Nitrite Negative (Negative); Protein, Urine (Dipstick) Negative (Neg-Trace); Urobilinogen 0.2 mg/dL (Less than 2)
[2023-03-18 19:23] LABS: Clarity Clear (Clear)
[2023-03-18 19:24] LABS: Specific Gravity, Urine 1.005 (1.002-1.036)
[2023-03-18 19:25] LABS: Bacteria/HPF Rare-Few HPF (None Seen); CAUTI Indications for Culture Alt mental st,lethar; RBC/HPF 0-3 HPF (0-3); Squamous Epithelial 0-3 HPF (0-3); WBC/HPF 0-3 HPF (0-3)
[2023-03-18 19:26] LABS: Urine Culture Reflex No No
[2023-03-18] MEDS ORDERED: Acetaminophen 325 MG/10.15 ML UDCUP PO PRN (20:19)
[2023-03-18] MEDS ORDERED: Acetaminophen 650 MG Suppository PR PRN (20:19)
[2023-03-18] MEDS ORDERED: NOREPINEPHRINE 8 MG/250 ML-D5W 250 ML IVPB PRN (20:19)
[2023-03-18] MEDS ORDERED: HumaLOG 300 UNITS/3 ML VIAL SC PRN ×2 (20:24)
[2023-03-18] MEDS ORDERED: Glucagon 1 MG/ML KIT IM PRN (20:24)
[2023-03-18] MEDS ORDERED: Dextrose 50% Abboject 50 ML SYRINGE SLOW IVP PRN (20:24)
[2023-03-18] MEDS ORDERED: Dextrose 5% in Water 1,000 ML IV PRN (20:24)
[2023-03-18] MEDS ORDERED: Calcium Carbonate 500 MG ChewTAB PO PRN (20:27)
[2023-03-18] MEDS ORDERED: [UNRECOGNIZED DRUG - REMARK] IVPB PRN (20:36)
[2023-03-18] MEDS ORDERED: Electrolyte Replacement Protocol 1 EACH FS SCH (20:54)
[2023-03-18] MEDS ORDERED: Carvedilol 3.125 MG TAB PO SCH (21:00)
[2023-03-18] MEDS ORDERED: Potassium Chloride 20 MEQ TAB PO SCH (21:00)
[2023-03-18] MEDS: Atorvastatin Calcium 40 MG TAB PO SCH (22:27)
[2023-03-18] MEDS: levETIRAcetam 500 MG TAB PO SCH (22:27)
[2023-03-18] MEDS: Topiramate 25 MG TAB PO SCH (22:27)
[2023-03-18] MEDS: Famotidine/PF 20 mg/2ml Vial SLOW IVP SCH (22:28)
[2023-03-18] MEDS ORDERED: Albuterol 200 PUFF (6.7GM INHALER) INH PRN (23:28)
[2023-03-18] MEDS ORDERED: Vancomycin Dose by Levels Sliding Scale (Wt <71) FS SCH (23:45)
[2023-03-19] MEDS: Levothyroxine Sodium 25 MCG TAB PO SCH (05:23)
[2023-03-19] MEDS ORDERED: Acetaminophen 650 MG/20.3 ML UDCUP PO PRN (05:30)
[2023-03-19 05:35] LABS: Hematocrit 29.8 % (36.0-47.0); Hemoglobin 9.5 g/dL (12.0-16.0); Mean Corpuscular HGB CONC 31.9 g/dL (32.0-36.0); Mean Corpuscular Hemoglobin 28.5 pg (27.0-31.0); Mean Platelet Volume 10.5 fL (7.4-10.4); Platelet Count 272 10x3/uL (130-400); RBC Distribution Width 18.2 % (11.5-14.5); Red Blood Cell (RBC) Count 3.33 mill/uL (4.20-5.40)
[2023-03-19 05:55] LABS: Delete Auto Diff?? YES; Manual Diff?? YES; Mean Corpuscular Volume 89.5 fl (78.0-98.0); White Blood Cell (WBC) Count 19.3 10x3/uL (4.8-10.8)
[2023-03-19] MEDS ORDERED: Albumin 25% 25 GM/100 ML BOT IVPB SCH (06:00)
[2023-03-19] MEDS ORDERED: Sodium Bicarb 50 MEQ/50 ML VIAL IVP SCH (06:15)
[2023-03-19] MEDS: Lactated Ringer's 1,000 ML IV SCH ×2 (06:16→15:37)
[2023-03-19 06:30] LABS: Anisocytosis SLIGHT = 6-15 cells HPF (0-5); Band 14 % (5-11); Burr Cells MARKED = >16 cells HPF (0-1); CellaVision Operator ID lab.sh2; Lymphocytes 8 % (21-51); Macrocytosis MODERATE=16-30 cells HPF (0-5); Monocytes 1 % (0-10); Neutrophil 77 % (42-75); Ovalocytes SLIGHT = 2-5 cells HPF (0-1); Platelet Adequacy Comment Platelets Normal; Poikilocytosis MODERATE=16-30 cells HPF (0-5); Polychromasia SLIGHT = 2-3 cells HPF (0-2); Schistocytes SLIGHT = 2-5 cells HPF (0-1); Smudge Cells 9.9 %; Total Cell Count 101; Vacuoles MODERATE
[2023-03-19 06:56] LABS: Anion Gap 12 mmol/L (10-20); BUN (Urea Nitrogen) 16 mg/dL (9.8-20.1); Calc. Creatinine Clearance 35 mL/min (70-130); Carbon Dioxide 16 mmol/L (22-29); Chloride 116 mmol/L (98-107); Sodium 141 mmol/L (136-145)
[2023-03-19 06:57] LABS: ALT (SGPT) 12 U/L (8-55); AST (SGOT) 18 U/L (5-34); Alkaline Phosphatase 238 U/L (40-110); Bilirubin, Total 0.5 mg/dL (0.2-1.2); Calcium 8.4 mg/dL (7.8-10.44); Estimated GFR 44; Globulin 2.8 g/dL (2.4-3.5); Glucose 95 mg/dL (70-105); Protein, Total 5.8 g/dL (6.0-8.3)
[2023-03-19] MEDS: Albumin 25% 25 GM/100 ML BOT IVPB SCH (07:55)
[2023-03-19] MEDS ORDERED: Potassium Chloride 20 MEQ TAB PO SCH ×3 (08:00→14:00)
[2023-03-19] MEDS ORDERED: Magnesium Sulfate In Water 4 GM in Premix 1 BAG IVPB SCH (08:00)
[2023-03-19] MEDS ORDERED: Hydrocortisone Sod Succ/PF 100 mg/2 ml Vial IVP SCH (08:00)
[2023-03-19 08:41] LABS: INR-International Normal Ratio 1.4; Prothrombin Time 17.6 sec (12.0-14.7)
[2023-03-19 08:42] LABS: PTT 37.5 sec (22.9-36.1)
[2023-03-19] MEDS ORDERED: Furosemide 40 MG TAB PO SCH (09:00)
[2023-03-19] MEDS ORDERED: Sacubitril 24MG/Valsartan 26 MG TAB PO SCH (09:00)
[2023-03-19] MEDS ORDERED: Vancomycin (BATCH) 1.5 GM in Premix 1 BAG IVPB SCH (09:00)
[2023-03-19] MEDS ORDERED: Potassium Chloride 20 MEQ in Premix 1 BAG IVPB SCH ×2 (09:30→14:45)
[2023-03-19] MEDS ORDERED: Potassium Chloride 40 MEQ in Premix 1 BAG IVPB SCH (09:45)
[2023-03-19] MEDS ORDERED: Lactated Ringer's 1,000 ML IV SCH (10:00)
[2023-03-19] MEDS: levETIRAcetam 500 MG TAB PO SCH ×2 (10:08→20:14)
[2023-03-19] MEDS: Topiramate 25 MG TAB PO SCH ×2 (10:09→20:14)
[2023-03-19] MEDS: Potassium Chloride 20 MEQ TAB PO SCH ×2 (10:09→10:20)
[2023-03-19] MEDS: Insulin Glargine 30 UNITS/0.3 ML VIAL SC SCH (10:09)
[2023-03-19] MEDS: Ezetimibe 10 MG TAB PO SCH (10:09)
[2023-03-19] MEDS: Ondansetron PF 4 MG/2 ML Vial IVP PRN (11:48)
[2023-03-19 12:21] LABS: Anion Gap 18 mmol/L (10-20); Carbon Dioxide 17 mmol/L (22-29); Chloride 111 mmol/L (98-107); Magnesium 2.8 mg/dL (1.6-2.6); Sodium 143 mmol/L (136-145)
[2023-03-19 12:23] LABS: Potassium 2.6 mmol/L (3.5-5.1)
[2023-03-19] MEDS: Hydrocortisone Sod Succ/PF 100 mg/2 ml Vial IVP SCH ×2 (13:33→19:54)
[2023-03-19] MEDS ORDERED: Sodium Bicarbonate 2.5 MEQ/5 ML VIAL ONE (13:50)
[2023-03-19] MEDS ORDERED: PHOS-NAK 1 PKT PACK PO SCH (14:00)
[2023-03-19 14:40] LABS: Potassium 3.4 mmol/L (3.5-5.1)
[2023-03-19] MEDS ORDERED: Potassium Phosphate 15 MMOL in Sodium Chloride 0.9% 100 ML IVPB SCH (14:45)
[2023-03-19] MEDS: Cefepime 1 GM in Sodium Chloride 0.9% 100 ML IVPB SCH (16:52)
[2023-03-19 17:33] LABS: Vancomycin, Random 11.4 ug/mL (See Comment)
[2023-03-19] MEDS ORDERED: Cefepime 1 GM in Sodium Chloride 0.9% 100 ML IVPB SCH (18:00)
[2023-03-19] MEDS: Vancomycin 1 GM in Premix 1 BAG IVPB SCH (19:49)
[2023-03-19] MEDS: Atorvastatin Calcium 40 MG TAB PO SCH (20:13)
[2023-03-19] MEDS: Famotidine/PF 20 mg/2ml Vial SLOW IVP SCH (20:14)
[2023-03-19 22:42] LABS: Anion Gap 13 mmol/L (10-20); Carbon Dioxide 19 mmol/L (22-29); Chloride 112 mmol/L (98-107); Magnesium 2.6 mg/dL (1.6-2.6); Phosphorus 3.3 mg/dL (2.3-4.7); Sodium 140 mmol/L (136-145)
[2023-03-20] MEDS: Lactated Ringer's 1,000 ML IV SCH ×3 (00:59→22:26)
[2023-03-20] MEDS: Hydrocortisone Sod Succ/PF 100 mg/2 ml Vial IVP SCH ×4 (00:59→20:34)
[2023-03-20 04:23] LABS: Hematocrit 22.8 % (36.0-47.0); Hemoglobin 7.5 g/dL (12.0-16.0); Mean Corpuscular HGB CONC 32.9 g/dL (32.0-36.0); Mean Corpuscular Hemoglobin 29.2 pg (27.0-31.0); Mean Corpuscular Volume 88.7 fl (78.0-98.0); Mean Platelet Volume 11.2 fL (7.4-10.4); Platelet Count 224 10x3/uL (130-400); RBC Distribution Width 18.3 % (11.5-14.5); Red Blood Cell (RBC) Count 2.57 mill/uL (4.20-5.40); White Blood Cell (WBC) Count 37.1 10x3/uL (4.8-10.8)
[2023-03-20 04:30] LABS: Delete Auto Diff?? YES; Manual Diff?? YES
[2023-03-20 04:50] LABS: Anion Gap 12 mmol/L (10-20); BUN (Urea Nitrogen) 14 mg/dL (9.8-20.1); Calc. Creatinine Clearance 48 mL/min (70-130); Calcium 8.4 mg/dL (7.8-10.44); Carbon Dioxide 20 mmol/L (22-29); Chloride 112 mmol/L (98-107); Estimated GFR 65; Glucose 122 mg/dL (70-105); Magnesium 2.6 mg/dL (1.6-2.6); Phosphorus 3.2 mg/dL (2.3-4.7); Potassium 3.7 mmol/L (3.5-5.1); Sodium 140 mmol/L (136-145)
[2023-03-20 06:10] LABS: Anisocytosis MARKED = >30 cells HPF (0-5); Band 36 % (5-11); Burr Cells SLIGHT = 2-5 cells HPF (0-1); CellaVision Operator ID LAB.CLH1; Hypochromia SLIGHT = 6-15 cells HPF (0-5); Lymphocytes 3 % (21-51); Macrocytosis SLIGHT = 6-15 cells HPF (0-5); Monocytes 4 % (0-10); Neutrophil 57 % (42-75); Platelet Adequacy Comment Platelets Normal; Poikilocytosis MODERATE=16-30 cells HPF (0-5); Polychromasia SLIGHT = 2-3 cells HPF (0-2); Schistocytes SLIGHT = 2-5 cells HPF (0-1); Total Cell Count 101
[2023-03-20] MEDS: Cefepime 1 GM in Sodium Chloride 0.9% 100 ML IVPB SCH ×2 (06:22→15:53)
[2023-03-20] MEDS: Levothyroxine Sodium 25 MCG TAB PO SCH (06:22)
[2023-03-20] MEDS ORDERED: Albumin 25% 100 ML ONE (07:32)
[2023-03-20] MEDS: Albumin 25% 25 GM/100 ML BOT IVPB SCH (07:38)
[2023-03-20] MEDS: levETIRAcetam 500 MG TAB PO SCH ×2 (07:38→20:34)
[2023-03-20] MEDS: Topiramate 25 MG TAB PO SCH ×2 (07:38→20:34)
[2023-03-20 09:00] LABS: Anion Gap 12 mmol/L (10-20); Carbon Dioxide 19 mmol/L (22-29); Chloride 112 mmol/L (98-107); Magnesium 2.6 mg/dL (1.6-2.6); Phosphorus 3.4 mg/dL (2.3-4.7); Potassium 3.8 mmol/L (3.5-5.1); Sodium 139 mmol/L (136-145)
[2023-03-20] MEDS: Ezetimibe 10 MG TAB PO SCH (09:44)
[2023-03-20] MEDS: Insulin Glargine 30 UNITS/0.3 ML VIAL SC SCH (09:44)
[2023-03-20] MEDS ORDERED: Lactated Ringer's 1,000 ML IV SCH (11:00)
[2023-03-20] MEDS ORDERED: fentaNYL PF 100 MCG/2 ML SYRINGE ONE (12:21)
[2023-03-20] MEDS ORDERED: EPINEPHrine 1 MG/ML AMP ONE (12:27)
[2023-03-20] MEDS ORDERED: Bupivacaine 0.25% HCL 30 ML VIAL ONE (12:27)
[2023-03-20] MEDS ORDERED: Vasopressin 20 UNITS/ML VIAL ONE (12:42)
[2023-03-20] MEDS ORDERED: SUGAMMADEX SODIUM 200 MG/2 ML VIAL ONE ×2 (12:43→14:11)
[2023-03-20] MEDS ORDERED: Succinylcholine 200 MG/10 ml SYRINGE FS ONE (12:58)
[2023-03-20] MEDS ORDERED: Rocuronium Bromide 10 MG/ML (10ML VIAL) ONE (12:58)
[2023-03-20] MEDS ORDERED: Lidocaine 1% PF 5 ML VIAL ONE (12:58)
[2023-03-20] MEDS ORDERED: PROPOFOL 200 MG/20 ML VIAL ONE (12:58)
[2023-03-20] MEDS ORDERED: Ondansetron HCl/PF 4 MG/2 ML Vial IVP PRN (14:05)
[2023-03-20] MEDS ORDERED: Promethazine HCl 25 MG/ML VIAL IM PRN (14:05)
[2023-03-20] MEDS ORDERED: fentaNYL 50 mcg/mL 1 mL Vial ONE ×2 (14:13→14:42)
[2023-03-20] MEDS ORDERED: Saccharomyces boulardii 250 MG CAP PO SCH (15:30)
[2023-03-20 15:31] LABS: Hematocrit 22.9 % (36.0-47.0); Hemoglobin 7.6 g/dL (12.0-16.0)
[2023-03-20] MEDS: Acetaminophen 325 MG TAB PO SCH ×2 (16:36→21:32)
[2023-03-20] MEDS: Vancomycin 1 GM in Premix 1 BAG IVPB SCH (20:32)
[2023-03-20] MEDS: Famotidine/PF 20 mg/2ml Vial SLOW IVP SCH (20:33)
[2023-03-20] MEDS: Atorvastatin Calcium 40 MG TAB PO SCH (20:34)
[2023-03-20 23:05] LABS: Anion Gap 11 mmol/L (10-20); Carbon Dioxide 19 mmol/L (22-29); Chloride 111 mmol/L (98-107); Magnesium 2.3 mg/dL (1.6-2.6); Phosphorus 2.7 mg/dL (2.3-4.7); Potassium 3.8 mmol/L (3.5-5.1); Sodium 137 mmol/L (136-145)
[2023-03-21] MEDS: Hydrocortisone Sod Succ/PF 100 mg/2 ml Vial IVP SCH ×4 (01:54→23:37)
[2023-03-21] MEDS: Cefepime 1 GM in Sodium Chloride 0.9% 100 ML IVPB SCH ×2 (04:20→16:01)
[2023-03-21 04:37] LABS: Hematocrit 23.6 % (36.0-47.0); Hemoglobin 7.6 g/dL (12.0-16.0); Mean Corpuscular HGB CONC 32.2 g/dL (32.0-36.0); Mean Corpuscular Hemoglobin 28.3 pg (27.0-31.0); Mean Corpuscular Volume 87.7 fl (78.0-98.0); Mean Platelet Volume 12.3 fL (7.4-10.4); Platelet Count 234 10x3/uL (130-400); RBC Distribution Width 18.5 % (11.5-14.5); Red Blood Cell (RBC) Count 2.69 mill/uL (4.20-5.40); White Blood Cell (WBC) Count 20.5 10x3/uL (4.8-10.8)
[2023-03-21 05:04] LABS: Anion Gap 11 mmol/L (10-20); BUN (Urea Nitrogen) 16 mg/dL (9.8-20.1); Calc. Creatinine Clearance 57 mL/min (70-130); Calcium 8.3 mg/dL (7.8-10.44); Carbon Dioxide 20 mmol/L (22-29); Chloride 111 mmol/L (98-107); Estimated GFR 76; Glucose 141 mg/dL (70-105); Magnesium 2.3 mg/dL (1.6-2.6); Phosphorus 2.7 mg/dL (2.3-4.7); Potassium 3.7 mmol/L (3.5-5.1); Sodium 138 mmol/L (136-145)
[2023-03-21 05:08] LABS: Delete Auto Diff?? YES; Manual Diff?? YES
[2023-03-21] MEDS: Levothyroxine Sodium 25 MCG TAB PO SCH (05:13)
[2023-03-21] MEDS: Acetaminophen 325 MG TAB PO SCH ×4 (05:13→20:37)
[2023-03-21 06:06] LABS: Anisocytosis MODERATE=16-30 cells HPF (0-5); Band 25 % (5-11); Burr Cells MODERATE= 6-15 cells HPF (0-1); CellaVision Operator ID LAB.JMM; Lymphocytes 6 % (21-51); Macrocytosis SLIGHT = 6-15 cells HPF (0-5); Neutrophil 69 % (42-75); Platelet Adequacy Comment Platelets Normal; Poikilocytosis MARKED = >30 cells HPF (0-5); Polychromasia SLIGHT = 2-3 cells HPF (0-2); Total Cell Count 100
[2023-03-21] MEDS: Ezetimibe 10 MG TAB PO SCH (08:05)
[2023-03-21] MEDS: Topiramate 25 MG TAB PO SCH ×2 (08:05→20:37)
[2023-03-21] MEDS: levETIRAcetam 500 MG TAB PO SCH ×2 (08:06→20:37)
[2023-03-21] MEDS: Saccharomyces boulardii 250 MG CAP PO SCH (08:06)
[2023-03-21] MEDS: Acetaminophen/Codeine 30-300mg Tablet PO PRN (08:06)
[2023-03-21] MEDS: Potassium Chloride 20 MEQ TAB PO SCH (08:06)
[2023-03-21] MEDS: Insulin Glargine 30 UNITS/0.3 ML VIAL SC SCH (08:13)
[2023-03-21] MEDS: Lactated Ringer's 1,000 ML IV SCH ×2 (08:21→20:39)
[2023-03-21 08:53] VITALS: BMI 19.3
[2023-03-21] MEDS: Ondansetron PF 4 MG/2 ML Vial IVP PRN (10:18)
[2023-03-21] MEDS: Morphine 2 MG/ML VIAL SLOW IVP PRN (12:14)
[2023-03-21 20:08] LABS: Vancomycin, Trough 20.9 ug/mL
[2023-03-21] MEDS: Atorvastatin Calcium 40 MG TAB PO SCH (20:37)
[2023-03-21] MEDS: Famotidine/PF 20 mg/2ml Vial SLOW IVP SCH (20:38)
[2023-03-21] MEDS: Vancomycin 1 GM in Premix 1 BAG IVPB SCH (20:38)
[2023-03-21] MEDS: Albumin 25% 25 GM/100 ML BOT IVPB SCH (23:39)
[2023-03-21 23:51] LABS: Bilirubin Negative (Negative); Blood, Urine Trace (Negative); Clarity Turbid (Clear); Glucose, Urine (Dipstick) Normal (Negative); Ketone, Urine Negative (Negative); Leukocyte 250 Leu/uL (Negative); Nitrite Negative (Negative); Protein, Urine (Dipstick) 10 mg/dL (Neg-Trace); Squamous Epithelial 0-3 HPF (0-3); Transitional Epithelial 0-3 HPF (None Seen); Urobilinogen Normal mg/dL (Less than 2); pH, Urine 6.5 (5.0-9.0)
[2023-03-21 23:53] LABS: Bacteria/HPF Rare-Few HPF (None Seen)
[2023-03-22 00:07] LABS: Creatinine, Urine 24.78 mg/dL (47-110); Sodium, Urine Less than 20 mmol/L (Not Available)
[2023-03-22] MEDS: Acetaminophen 325 MG TAB PO SCH ×4 (04:18→22:23)
[2023-03-22] MEDS: Levothyroxine Sodium 25 MCG TAB PO SCH (04:20)
[2023-03-22] MEDS: Cefepime 1 GM in Sodium Chloride 0.9% 100 ML IVPB SCH ×2 (04:20→16:46)
[2023-03-22] MEDS: Acetaminophen/Codeine 30-300mg Tablet PO PRN ×3 (04:27→20:37)
[2023-03-22] MEDS: Ondansetron ODT 4 MG TAB PO PRN ×3 (04:27→20:36)
[2023-03-22] MEDS: Lactated Ringer's 1,000 ML IV SCH ×2 (05:20→14:41)
[2023-03-22] MEDS: Albumin 25% 25 GM/100 ML BOT IVPB SCH ×2 (05:45→12:29)
[2023-03-22 06:30] LABS: Hematocrit 24.1 % (36.0-47.0); Hemoglobin 7.7 g/dL (12.0-16.0); Mean Corpuscular Hemoglobin 28.2 pg (27.0-31.0); Mean Corpuscular Volume 88.3 fl (78.0-98.0); Mean Platelet Volume 12.1 fL (7.4-10.4); Platelet Count 276 10x3/uL (130-400); RBC Distribution Width 18.8 % (11.5-14.5); Red Blood Cell (RBC) Count 2.73 mill/uL (4.20-5.40); White Blood Cell (WBC) Count 14.2 10x3/uL (4.8-10.8)
[2023-03-22 06:42] LABS: Delete Auto Diff?? YES; Manual Diff?? YES
[2023-03-22 07:34] LABS: Anion Gap 10 mmol/L (10-20); BUN (Urea Nitrogen) 18 mg/dL (9.8-20.1); Calc. Creatinine Clearance 60 mL/min (70-130); Calcium 8.4 mg/dL (7.8-10.44); Carbon Dioxide 18 mmol/L (22-29); Chloride 111 mmol/L (98-107); Estimated GFR 81; Glucose 127 mg/dL (70-105); Potassium 3.9 mmol/L (3.5-5.1); Sodium 135 mmol/L (136-145)
[2023-03-22 07:40] LABS: Anisocytosis MARKED = >30 cells HPF (0-5); Band 5 % (5-11); Burr Cells MODERATE= 6-15 cells HPF (0-1); CellaVision Operator ID LAB.CMB; Lymphocytes 7 % (21-51); Macrocytosis MODERATE=16-30 cells HPF (0-5); Monocytes 4 % (0-10); Neutrophil 83 % (42-75); Ovalocytes SLIGHT = 2-5 cells HPF (0-1); Platelet Adequacy Comment Platelets Normal; Poikilocytosis MODERATE=16-30 cells HPF (0-5); Polychromasia SLIGHT = 2-3 cells HPF (0-2); Reactive Lymphocytes 1 % (0-10); Schistocytes SLIGHT = 2-5 cells HPF (0-1); Total Cell Count 99
[2023-03-22] MEDS: Hydrocortisone Sod Succ/PF 100 mg/2 ml Vial IVP SCH ×2 (08:15→16:45)
[2023-03-22] MEDS: levETIRAcetam 500 MG TAB PO SCH ×2 (08:15→20:36)
[2023-03-22] MEDS: Potassium Chloride 20 MEQ TAB PO SCH (08:15)
[2023-03-22] MEDS: Ezetimibe 10 MG TAB PO SCH (08:15)
[2023-03-22] MEDS: Topiramate 25 MG TAB PO SCH ×2 (08:16→20:36)
[2023-03-22] MEDS: Saccharomyces boulardii 250 MG CAP PO SCH (08:16)
[2023-03-22] MEDS: Insulin Glargine 30 UNITS/0.3 ML VIAL SC SCH (08:16)
[2023-03-22] MEDS: Morphine 2 MG/ML VIAL SLOW IVP PRN (17:09)
[2023-03-22] MEDS: Ipratropium/Albuterol 3 ML NEB NEB PRN (19:19)
[2023-03-22] MEDS: Atorvastatin Calcium 40 MG TAB PO SCH (20:36)
[2023-03-22] MEDS: Famotidine/PF 20 mg/2ml Vial SLOW IVP SCH (20:36)
[2023-03-22] MEDS: Vancomycin 1 GM in Premix 1 BAG IVPB SCH (20:37)
[2023-03-22] MEDS ORDERED: Albumin 25% 25 GM/100 ML BOT IVPB SCH (21:00)
[2023-03-23] MEDS: Lactated Ringer's 1,000 ML IV SCH ×4 (01:41→21:20)
[2023-03-23] MEDS: Hydrocortisone Sod Succ/PF 100 mg/2 ml Vial IVP SCH ×2 (03:58→16:00)
[2023-03-23] MEDS: Acetaminophen 325 MG TAB PO SCH ×4 (04:00→21:22)
[2023-03-23] MEDS: Acetaminophen/Codeine 30-300mg Tablet PO PRN ×2 (04:05→18:02)
[2023-03-23] MEDS: Cefepime 1 GM in Sodium Chloride 0.9% 100 ML IVPB SCH ×2 (04:06→17:56)
[2023-03-23] MEDS: Levothyroxine Sodium 25 MCG TAB PO SCH (04:14)
[2023-03-23 08:00] LABS: #Monocytes 0.5 thou/uL (0.11-0.59); #Neutrophils 8.2 thou/uL (1.40-6.50); %Basophils 0.1 % (0.0-1.0); %Lymphocytes 15.3 % (21.0-51.0); %Monocytes 4.3 % (0.0-10.0); %Neutrophils 76.6 % (42.0-75.0); Hematocrit 24.4 % (36.0-47.0); Hemoglobin 7.8 g/dL (12.0-16.0); Mean Corpuscular Hemoglobin 28.6 pg (27.0-31.0); Mean Corpuscular Volume 89.4 fl (78.0-98.0); Mean Platelet Volume 11.5 fL (7.4-10.4); Platelet Count 283 10x3/uL (130-400); RBC Distribution Width 18.6 % (11.5-14.5); Red Blood Cell (RBC) Count 2.73 mill/uL (4.20-5.40); White Blood Cell (WBC) Count 10.8 10x3/uL (4.8-10.8)
[2023-03-23] MEDS: levETIRAcetam 500 MG TAB PO SCH ×2 (10:20→21:23)
[2023-03-23] MEDS: Potassium Chloride 20 MEQ TAB PO SCH (10:21)
[2023-03-23] MEDS: Saccharomyces boulardii 250 MG CAP PO SCH (10:21)
[2023-03-23] MEDS: Sacubitril 24MG/Valsartan 26 MG TAB PO SCH ×2 (10:22→21:23)
[2023-03-23] MEDS: Ezetimibe 10 MG TAB PO SCH (10:24)
[2023-03-23] MEDS: Insulin Glargine 30 UNITS/0.3 ML VIAL SC SCH (10:25)
[2023-03-23] MEDS: Topiramate 25 MG TAB PO SCH ×2 (11:05→21:23)
[2023-03-23] MEDS: Ondansetron ODT 4 MG TAB PO PRN ×2 (11:14→21:35)
[2023-03-23] MEDS: Ipratropium/Albuterol 3 ML NEB NEB PRN ×2 (11:23→18:57)
[2023-03-23] MEDS ORDERED: hydrALAZINE 20 MG/ML VIAL SLOW IVP SCH (13:15)
[2023-03-23 19:16] LABS: Vancomycin, Trough 20.7 ug/mL
[2023-03-23] MEDS: Atorvastatin Calcium 40 MG TAB PO SCH (21:22)
[2023-03-23] MEDS: Famotidine/PF 20 mg/2ml Vial SLOW IVP SCH (21:23)
[2023-03-23] MEDS: Vancomycin 1 GM in Premix 1 BAG IVPB SCH (21:35)
[2023-03-24] MEDS: Acetaminophen/Codeine 30-300mg Tablet PO PRN ×2 (04:57→21:03)
[2023-03-24] MEDS: Levothyroxine Sodium 25 MCG TAB PO SCH (04:58)
[2023-03-24] MEDS: Ondansetron ODT 4 MG TAB PO PRN ×2 (04:58→21:03)
[2023-03-24] MEDS: Hydrocortisone Sod Succ/PF 100 mg/2 ml Vial IVP SCH (04:58)
[2023-03-24] MEDS: Cefepime 1 GM in Sodium Chloride 0.9% 100 ML IVPB SCH ×2 (04:58→18:28)
[2023-03-24] MEDS: Acetaminophen 325 MG TAB PO SCH ×4 (05:01→21:19)
[2023-03-24] MEDS: Lactated Ringer's 1,000 ML IV SCH (05:01)
[2023-03-24 06:54] LABS: #Monocytes 0.9 thou/uL (0.11-0.59); #Neutrophils 12.1 thou/uL (1.40-6.50); %Basophils 0.1 % (0.0-1.0); %Eosinophils 0.1 % (0.0-10.0); %Lymphocytes 14.6 % (21.0-51.0); %Monocytes 5.5 % (0.0-10.0); %Neutrophils 77.8 % (42.0-75.0); Hematocrit 23.3 % (36.0-47.0); Hemoglobin 7.8 g/dL (12.0-16.0); Mean Corpuscular HGB CONC 33.5 g/dL (32.0-36.0); Mean Corpuscular Hemoglobin 28.8 pg (27.0-31.0); Mean Platelet Volume 11.2 fL (7.4-10.4); Platelet Count 372 10x3/uL (130-400); RBC Distribution Width 18.5 % (11.5-14.5); Red Blood Cell (RBC) Count 2.71 mill/uL (4.20-5.40); White Blood Cell (WBC) Count 15.5 10x3/uL (4.8-10.8)
[2023-03-24] MEDS: Ipratropium/Albuterol 3 ML NEB NEB PRN ×2 (07:17→19:35)
[2023-03-24 07:18] LABS: Anion Gap 11 mmol/L (10-20); BUN (Urea Nitrogen) 12 mg/dL (9.8-20.1); Calc. Creatinine Clearance 70 mL/min (70-130); Calcium 8.4 mg/dL (7.8-10.44); Carbon Dioxide 22 mmol/L (22-29); Chloride 108 mmol/L (98-107); Estimated GFR 97; Glucose 89 mg/dL (70-105); Sodium 139 mmol/L (136-145)
[2023-03-24 07:44] LABS: Potassium 2.3 mmol/L (3.5-5.1)
[2023-03-24] MEDS ORDERED: Potassium Bicarbonate/Cit Ac 20 MEQ TAB PO SCH (08:45)
[2023-03-24] MEDS ORDERED: Famotidine/PF 20 mg/2ml Vial SLOW IVP SCH (09:00)
[2023-03-24] MEDS: Sacubitril 24MG/Valsartan 26 MG TAB PO SCH ×2 (10:12→21:03)
[2023-03-24] MEDS: Saccharomyces boulardii 250 MG CAP PO SCH (10:13)
[2023-03-24] MEDS: Ezetimibe 10 MG TAB PO SCH (10:13)
[2023-03-24] MEDS: Potassium Chloride 20 MEQ TAB PO SCH (10:14)
[2023-03-24] MEDS: Topiramate 25 MG TAB PO SCH ×2 (10:17→21:02)
[2023-03-24] MEDS: levETIRAcetam 500 MG TAB PO SCH ×2 (10:18→21:02)
[2023-03-24] MEDS: Insulin Glargine 30 UNITS/0.3 ML VIAL SC SCH (10:19)
[2023-03-24] MEDS: Potassium Chloride 20 MEQ in Premix 1 BAG IVPB SCH ×5 (10:20→21:02)
[2023-03-24 17:02] LABS: Anion Gap 13 mmol/L (10-20); Carbon Dioxide 20 mmol/L (22-29); Chloride 108 mmol/L (98-107); Potassium 3.2 mmol/L (3.5-5.1); Sodium 138 mmol/L (136-145)
[2023-03-24] MEDS: Famotidine 20 MG TAB PO SCH (21:02)
[2023-03-24] MEDS: Atorvastatin Calcium 40 MG TAB PO SCH (21:03)
[2023-03-24] MEDS: Vancomycin 1 GM in Premix 1 BAG IVPB SCH (23:20)
[2023-03-25] MEDS: Hydrocortisone Sod Succ/PF 100 mg/2 ml Vial IVP SCH (04:33)
[2023-03-25] MEDS: Acetaminophen 325 MG TAB PO SCH ×4 (04:33→20:28)
[2023-03-25] MEDS: Levothyroxine Sodium 25 MCG TAB PO SCH (04:33)
[2023-03-25] MEDS: Cefepime 1 GM in Sodium Chloride 0.9% 100 ML IVPB SCH (04:34)
[2023-03-25 06:15] LABS: Anion Gap 9 mmol/L (10-20); BUN (Urea Nitrogen) 11 mg/dL (9.8-20.1); Calc. Creatinine Clearance 73 mL/min (70-130); Calcium 8.2 mg/dL (7.8-10.44); Carbon Dioxide 23 mmol/L (22-29); Chloride 109 mmol/L (98-107); Estimated GFR 102; Glucose 92 mg/dL (70-105); Potassium 2.8 mmol/L (3.5-5.1); Sodium 138 mmol/L (136-145)
[2023-03-25] MEDS ORDERED: Potassium Chloride 20 MEQ in Premix 1 BAG IVPB SCH (08:30)
[2023-03-25] MEDS: Sacubitril 24MG/Valsartan 26 MG TAB PO SCH ×2 (09:18→20:22)
[2023-03-25] MEDS: Famotidine 20 MG TAB PO SCH ×2 (09:19→20:21)
[2023-03-25] MEDS: Potassium Chloride 20 MEQ TAB PO SCH ×3 (09:20→12:03)
[2023-03-25] MEDS: Saccharomyces boulardii 250 MG CAP PO SCH (09:22)
[2023-03-25] MEDS: Ezetimibe 10 MG TAB PO SCH (09:22)
[2023-03-25] MEDS: levETIRAcetam 500 MG TAB PO SCH ×2 (09:22→20:20)
[2023-03-25] MEDS: Topiramate 25 MG TAB PO SCH ×2 (09:22→20:22)
[2023-03-25] MEDS: Insulin Glargine 30 UNITS/0.3 ML VIAL SC SCH (09:23)
[2023-03-25] MEDS: Ondansetron ODT 4 MG TAB PO PRN ×2 (09:35→20:21)
[2023-03-25] MEDS: hydrALAZINE 25 MG TAB PO SCH ×2 (15:25→20:21)
[2023-03-25] MEDS: Cefepime 2 GM in Sodium Chloride 0.9% 100 ML IVPB SCH (17:16)
[2023-03-25] MEDS: Ipratropium/Albuterol 3 ML NEB NEB PRN (17:16)
[2023-03-25] MEDS: Vancomycin 1 GM in Premix 1 BAG IVPB SCH (20:20)
[2023-03-25] MEDS: Atorvastatin Calcium 40 MG TAB PO SCH (20:21)
[2023-03-25] MEDS: Acetaminophen/Codeine 30-300mg Tablet PO PRN (20:22)
[2023-03-26] MEDS: Acetaminophen 325 MG TAB PO SCH ×4 (04:19→20:50)
[2023-03-26] MEDS: Hydrocortisone Sod Succ/PF 100 mg/2 ml Vial IVP SCH (04:19)
[2023-03-26] MEDS: Levothyroxine Sodium 25 MCG TAB PO SCH (04:19)
[2023-03-26] MEDS: Cefepime 2 GM in Sodium Chloride 0.9% 100 ML IVPB SCH ×2 (04:20→18:22)
[2023-03-26] MEDS: Ipratropium/Albuterol 3 ML NEB NEB PRN (04:47)
[2023-03-26 05:38] LABS: Hematocrit 26.6 % (36.0-47.0); Hemoglobin 8.9 g/dL (12.0-16.0); Mean Corpuscular HGB CONC 33.5 g/dL (32.0-36.0); Mean Corpuscular Hemoglobin 28.8 pg (27.0-31.0); Mean Corpuscular Volume 86.1 fl (78.0-98.0); Mean Platelet Volume 9.9 fL (7.4-10.4); Platelet Count 536 10x3/uL (130-400); RBC Distribution Width 18.6 % (11.5-14.5); Red Blood Cell (RBC) Count 3.09 mill/uL (4.20-5.40); White Blood Cell (WBC) Count 12.7 10x3/uL (4.8-10.8)
[2023-03-26 06:08] LABS: Anion Gap 13 mmol/L (10-20); BUN (Urea Nitrogen) 14 mg/dL (9.8-20.1); Calc. Creatinine Clearance 75 mL/min (70-130); Calcium 8.5 mg/dL (7.8-10.44); Carbon Dioxide 20 mmol/L (22-29); Chloride 109 mmol/L (98-107); Estimated GFR 103; Glucose 110 mg/dL (70-105); Magnesium 1.7 mg/dL (1.6-2.6); Potassium 3.9 mmol/L (3.5-5.1); Sodium 138 mmol/L (136-145)
[2023-03-26 06:34] LABS: Phosphorus 1.2 mg/dL (2.3-4.7)
[2023-03-26] MEDS ORDERED: PHOS-NAK 1 PKT PACK PO SCH ×2 (07:15→12:00)
[2023-03-26] MEDS ORDERED: Magnesium 2 GM/50 ML(in water) 2 GM in Premix 1 BAG IVPB SCH (08:00)
[2023-03-26] MEDS ORDERED: Spironolactone 25 MG TAB PO SCH (08:00)
[2023-03-26] MEDS ORDERED: Sodium Phosphate 30 MMOL in Sodium Chloride 0.9% 250 ML 250 ML IVPB SCH (10:00)
[2023-03-26] MEDS: Saccharomyces boulardii 250 MG CAP PO SCH (10:23)
[2023-03-26] MEDS: hydrALAZINE 25 MG TAB PO SCH ×3 (10:23→20:52)
[2023-03-26] MEDS: Sacubitril 24MG/Valsartan 26 MG TAB PO SCH ×2 (10:24→20:52)
[2023-03-26] MEDS: Topiramate 25 MG TAB PO SCH ×2 (10:24→20:52)
[2023-03-26] MEDS: Ezetimibe 10 MG TAB PO SCH (10:24)
[2023-03-26] MEDS: Famotidine 20 MG TAB PO SCH ×2 (10:24→20:52)
[2023-03-26] MEDS: levETIRAcetam 500 MG TAB PO SCH ×2 (10:24→20:53)
[2023-03-26] MEDS: Insulin Glargine 30 UNITS/0.3 ML VIAL SC SCH (10:25)
[2023-03-26] MEDS: Ondansetron PF 4 MG/2 ML Vial IVP PRN (10:37)
[2023-03-26] MEDS: Acetaminophen/Codeine 30-300mg Tablet PO PRN (15:57)
[2023-03-26] MEDS ORDERED: Prochlorperazine Maleate 5 MG TAB PO PRN (16:30)
[2023-03-26 17:56] LABS: Magnesium 2.1 mg/dL (1.6-2.6); Phosphorus 3.1 mg/dL (2.3-4.7)
[2023-03-26] MEDS: Atorvastatin Calcium 40 MG TAB PO SCH (20:53)
[2023-03-26] MEDS: Morphine 2 MG/ML VIAL SLOW IVP PRN (21:05)
[2023-03-27] MEDS: Ipratropium/Albuterol 3 ML NEB NEB PRN (01:06)
[2023-03-27] MEDS: Levothyroxine Sodium 25 MCG TAB PO SCH (05:17)
[2023-03-27] MEDS: Acetaminophen 325 MG TAB PO SCH ×3 (05:17→15:43)
[2023-03-27 05:59] LABS: #Eosinphils 0.4 thou/uL (0.0-0.7); #Monocytes 0.8 thou/uL (0.11-0.59); %Basophils 0.1 % (0.0-1.0); %Eosinophils 4.4 % (0.0-10.0); %Lymphocytes 39.8 % (21.0-51.0); %Monocytes 8.9 % (0.0-10.0); %Neutrophils 42.1 % (42.0-75.0); Hematocrit 23.3 % (36.0-47.0); Hemoglobin 7.8 g/dL (12.0-16.0); Mean Corpuscular HGB CONC 33.5 g/dL (32.0-36.0); Mean Corpuscular Hemoglobin 28.6 pg (27.0-31.0); Mean Corpuscular Volume 85.3 fl (78.0-98.0); Mean Platelet Volume 9.9 fL (7.4-10.4); Platelet Count 547 10x3/uL (130-400); RBC Distribution Width 18.6 % (11.5-14.5); Red Blood Cell (RBC) Count 2.73 mill/uL (4.20-5.40); White Blood Cell (WBC) Count 9.4 10x3/uL (4.8-10.8)
[2023-03-27 06:23] LABS: Anion Gap 9 mmol/L (10-20); BUN (Urea Nitrogen) 11 mg/dL (9.8-20.1); Calc. Creatinine Clearance 80 mL/min (70-130); Calcium 8.3 mg/dL (7.8-10.44); Carbon Dioxide 21 mmol/L (22-29); Chloride 109 mmol/L (98-107); Estimated GFR 104; Glucose 79 mg/dL (70-105); Potassium 3.4 mmol/L (3.5-5.1); Sodium 136 mmol/L (136-145)
[2023-03-27] MEDS ORDERED: Electrolyte Replacement Protocol FS PRN (08:15)
[2023-03-27] MEDS ORDERED: Potassium Chloride 20 MEQ TAB PO SCH (08:15)
[2023-03-27] MEDS: Insulin Glargine 30 UNITS/0.3 ML VIAL SC SCH (09:32)
[2023-03-27] MEDS: Famotidine 20 MG TAB PO SCH (09:33)
[2023-03-27] MEDS: Saccharomyces boulardii 250 MG CAP PO SCH (09:33)
[2023-03-27] MEDS: Ezetimibe 10 MG TAB PO SCH (09:33)
[2023-03-27] MEDS: levETIRAcetam 500 MG TAB PO SCH (09:34)
[2023-03-27] MEDS: hydrALAZINE 25 MG TAB PO SCH ×2 (09:34→15:43)
[2023-03-27] MEDS: Sacubitril 24MG/Valsartan 26 MG TAB PO SCH (09:34)
[2023-03-27] MEDS: Topiramate 25 MG TAB PO SCH (09:34)
[2023-03-27] MEDS ORDERED: Ondansetron PF 4 MG/2 ML Vial IVP PRN (10:06)
[2023-03-27] MEDS ORDERED: Magnesium Oxide 400 MG TAB PO SCH (10:23)
[2023-03-27 11:17] LABS: Phosphorus 2.7 mg/dL (2.3-4.7)
[2023-03-27 14:20] VITALS: BP 132/77; TEMP 98
[2023-03-27 15:22] LABS: Potassium 5.1 mmol/L (3.5-5.1)
[2023-03-28] MEDS ORDERED: Magnesium Oxide 400 MG TAB PO SCH (09:00)
== END 2023-03-27 17:39 | disposition home health service (06) | DRG 856 ==
LOC: ERS 16:29 → IMCU/EMU 20:11 → CCU 03-19 09:17 → SJJU 03-21 11:48
PROVIDERS: ADMIT Student in an Organized Health Care Education/Training Program; ATTEND Internal Medicine
PROC: 02H633Z Insertion of Infusion Device into Right Atrium, Percutaneous Approach (ICD-10-PCS; 2023-03-18)
PROC: B5181ZA Fluoroscopy of Superior Vena Cava using Low Osmolar Contrast, Guidance (ICD-10-PCS; 2023-03-18)
PROC: 3E03329 Introduction of Other Anti-infective into Peripheral Vein, Percutaneous Approach (ICD-10-PCS; 2023-03-18)
PROC: 3E033XZ Introduction of Vasopressor into Peripheral Vein, Percutaneous Approach (ICD-10-PCS; 2023-03-18)
PROC: 30233J1 Transfusion of Nonautologous Serum Albumin into Peripheral Vein, Percutaneous Approach (ICD-10-PCS; 2023-03-19)
PROC: 0W9G4ZZ Drainage of Peritoneal Cavity, Percutaneous Endoscopic Approach (ICD-10-PCS; principal; 2023-03-20)
DX: T81.43XA Infection following a procedure, organ and space surgical site, initial encounter (principal); A41.9 Sepsis, unspecified organism; R65.21 Severe sepsis with septic shock; I13.0 Hypertensive heart and chronic kidney disease with heart failure and stage 1 through stage 4 chronic kidney disease, or unspecified chronic kidney disease; N17.9 Acute kidney failure, unspecified; E87.20 Acidosis, unspecified; J96.10 Chronic respiratory failure, unspecified whether with hypoxia or hypercapnia; K81.0 Acute cholecystitis; I50.42 Chronic combined systolic (congestive) and diastolic (congestive) heart failure; E44.0 Moderate protein-calorie malnutrition; Z68.1 Body mass index [BMI] 19.9 or less, adult; K91.870 Postprocedural hematoma of a digestive system organ or structure following a digestive system procedure; J45.909 Unspecified asthma, uncomplicated; E78.5 Hyperlipidemia, unspecified; E11.22 Type 2 diabetes mellitus with diabetic chronic kidney disease; Z20.822 Contact with and (suspected) exposure to COVID-19; E87.6 Hypokalemia; D63.1 Anemia in chronic kidney disease; F41.9 Anxiety disorder, unspecified; D64.9 Anemia, unspecified; G40.909 Epilepsy, unspecified, not intractable, without status epilepticus; E03.9 Hypothyroidism, unspecified; N18.30 Chronic kidney disease, stage 3 unspecified; E83.39 Other disorders of phosphorus metabolism; E83.42 Hypomagnesemia; Z79.82 Long term (current) use of aspirin; Z91.018 Allergy to other foods; Z88.8 Allergy status to other drugs, medicaments and biological substances; Z79.890 Hormone replacement therapy; Z79.899 Other long term (current) drug therapy; Z90.49 Acquired absence of other specified parts of digestive tract; Z98.890 Other specified postprocedural states; Z95.810 Presence of automatic (implantable) cardiac defibrillator; Y83.8 Other surgical procedures as the cause of abnormal reaction of the patient, or of later complication, without mention of misadventure at the time of the procedure
CPT/HCPCS: 36415; 36416; 36556; 49020; 71045; 71260; 74177; 77002; 80048; 80051; 80053; 80202; 81001; 82533; 82570; 83605; 83690; 83735; 83880; 84100; 84145; 84300; 84484; 85025; 85027; 85610; 85730; 86850; 86900; 86901; 87040; 87070; 87081; 87205; 87324; 87449; 93005; 93306; 94640; 94760; 96361; 96365; 96367; C1889; J0171; J0360; J0692; J1720; J1815; J2272; J2405; J2704; J3010; J3370-JW; J3475; J3480; J3490; J7050; J7120; J7620; P9047; Q0162; Q0164; Q9967; S0020; S0028; U0002

== ENCOUNTER 2023-04-18 12:12 | Emergency (ER) | payer MEDICARE, MEDICAID ==
[2023-04-18] MEDS ORDERED: Iopamidol-370 76% 500 ML MDV (1 ML CHARGE) ONE (13:52)
[2023-04-18 14:04] LABS: Hematocrit 38.7 % (36.0-47.0); Hemoglobin 11.5 g/dL (12.0-16.0); Mean Corpuscular HGB CONC 29.7 g/dL (32.0-36.0); Mean Corpuscular Volume 97.7 fl (78.0-98.0); Mean Platelet Volume 9.9 fL (7.4-10.4); Platelet Count 467 10x3/uL (130-400); RBC Distribution Width 18.1 % (11.5-14.5); Red Blood Cell (RBC) Count 3.96 mill/uL (4.20-5.40); White Blood Cell (WBC) Count 13.6 10x3/uL (4.8-10.8)
[2023-04-18 14:11] LABS: Delete Auto Diff?? YES; Manual Diff?? YES
[2023-04-18 14:28] LABS: ALT (SGPT) 15 U/L (8-55); AST (SGOT) 18 U/L (5-34); Albumin 5.1 g/dL (3.5-5.0); Alkaline Phosphatase 144 U/L (40-110); Anion Gap 17 mmol/L (10-20); BUN (Urea Nitrogen) 18 mg/dL (9.8-20.1); Bilirubin, Total 0.4 mg/dL (0.2-1.2); Calc. Creatinine Clearance 0 mL/min (70-130); Carbon Dioxide 15 mmol/L (22-29); Chloride 105 mmol/L (98-107); Estimated GFR 63; Globulin 3.8 g/dL (2.4-3.5); Glucose 83 mg/dL (70-105); Lipase 176 U/L (8-78); Potassium 4.2 mmol/L (3.5-5.1); Protein, Total 8.9 g/dL (6.0-8.3); Sodium 133 mmol/L (136-145)
[2023-04-18 14:29] LABS: Bilirubin Negative (Negative); Blood, Urine Negative (Negative); CAUTI Indications for Culture Pelvic or flank pain; Clarity Clear (Clear); Glucose, Urine (Dipstick) Normal (Negative); Ketone, Urine Negative (Negative); Leukocyte 75 Leu/uL (Negative); Nitrite Negative (Negative); Protein, Urine (Dipstick) Negative (Neg-Trace); RBC/HPF 0-3 HPF (0-3); Specific Gravity, Urine 1.004 (1.002-1.036); Squamous Epithelial 0-3 HPF (0-3); Urobilinogen Normal mg/dL (Less than 2); WBC/HPF 0-3 HPF (0-3)
[2023-04-18 14:30] LABS: Bacteria/HPF 1+ HPF (None Seen)
[2023-04-18 14:32] LABS: Urine Culture Reflex No No
[2023-04-18 14:37] LABS: Band 1 % (5-11); Eosinophils 1 % (0-10); Lymphocytes 40 % (21-51); Monocytes 6 % (0-10); Neutrophil 52 % (42-75); Platelet Adequacy Comment Platelets Normal; Polychromasia SLIGHT = 2-3 cells HPF (0-2); Total Cell Count 101
[2023-04-18 15:14] LABS: RBC Morphology Within Normal Limits
== END 2023-04-18 17:36 | disposition home or self-care (01) ==
LOC: ERS 12:12
DX: M54.50 Low back pain, unspecified (principal); E11.9 Type 2 diabetes mellitus without complications; E03.9 Hypothyroidism, unspecified; E78.5 Hyperlipidemia, unspecified; I10 Essential (primary) hypertension; Z79.82 Long term (current) use of aspirin; Z79.899 Other long term (current) drug therapy
CPT/HCPCS: 36415; 36416; 74177; 80048; 81001; 83690; 84443; 85025; Q9967

== ENCOUNTER 2023-04-19 20:30 | Emergency (ER) | payer MEDICARE, MEDICAID ==
[2023-04-20 01:00] LABS: #Basophils 0.1 thou/uL (0.0-0.2); #Eosinphils 0.6 thou/uL (0.0-0.7); #Monocytes 0.9 thou/uL (0.11-0.59); #Neutrophils 5.9 thou/uL (1.40-6.50); %Eosinophils 4.7 % (0.0-10.0); %Lymphocytes 37.6 % (21.0-51.0); %Monocytes 7.6 % (0.0-10.0); %Neutrophils 48.5 % (42.0-75.0); Hematocrit 32.7 % (36.0-47.0); Hemoglobin 10.4 g/dL (12.0-16.0); Mean Corpuscular HGB CONC 31.8 g/dL (32.0-36.0); Mean Corpuscular Hemoglobin 28.9 pg (27.0-31.0); Mean Platelet Volume 10.6 fL (7.4-10.4); RBC Distribution Width 18.1 % (11.5-14.5); White Blood Cell (WBC) Count 12.2 10x3/uL (4.8-10.8)
[2023-04-20 01:11] LABS: ALT (SGPT) 15 U/L (8-55); AST (SGOT) 22 U/L (5-34); Albumin 4.8 g/dL (3.5-5.0); Alkaline Phosphatase 133 U/L (40-110); Anion Gap 17 mmol/L (10-20); BUN (Urea Nitrogen) 29 mg/dL (9.8-20.1); Bilirubin, Total 0.3 mg/dL (0.2-1.2); Calc. Creatinine Clearance 0 mL/min (70-130); Calcium 9.9 mg/dL (7.8-10.44); Carbon Dioxide 20 mmol/L (22-29); Chloride 111 mmol/L (98-107); Estimated GFR 56; Globulin 3.7 g/dL (2.4-3.5); Glucose 94 mg/dL (70-105); Platelet Count 609 10x3/uL (130-400); Potassium 4.5 mmol/L (3.5-5.1); Protein, Total 8.5 g/dL (6.0-8.3); Sodium 143 mmol/L (136-145)
[2023-04-20 01:12] LABS: Mean Corpuscular Volume 90.8 fl (78.0-98.0)
[2023-04-20 03:12] LABS: SARS-CoV-2 NAA Rapid Test Not Detected (NotDetected)
== END 2023-04-20 03:06 | disposition home or self-care (01) ==
LOC: ERS 20:30
DX: M62.838 Other muscle spasm (principal); I12.9 Hypertensive chronic kidney disease with stage 1 through stage 4 chronic kidney disease, or unspecified chronic kidney disease; E11.22 Type 2 diabetes mellitus with diabetic chronic kidney disease; N18.30 Chronic kidney disease, stage 3 unspecified; E03.9 Hypothyroidism, unspecified; E78.5 Hyperlipidemia, unspecified; Z79.899 Other long term (current) drug therapy; Z79.82 Long term (current) use of aspirin; Z20.822 Contact with and (suspected) exposure to COVID-19
CPT/HCPCS: 0240U; 70450; 80053; 83605; 85025; 87040

== ENCOUNTER 2023-05-28 13:26 | Emergency (ER) | payer MEDICARE, MEDICAID ==
[2023-05-28] MEDS ORDERED: Acetaminophen 325 MG TAB ONE (14:27)
[2023-05-28 15:14] LABS: SARS-CoV-2 NAA Rapid Test Not Detected (NotDetected)
[2023-05-28 16:26] LABS: #Neutrophils 8.4 thou/uL (1.40-6.50); %Basophils 0.3 % (0.0-1.0); %Eosinophils 0.2 % (0.0-10.0); %Lymphocytes 21.6 % (21.0-51.0); %Neutrophils 69.6 % (42.0-75.0); Hematocrit 32.8 % (36.0-47.0); Hemoglobin 10.9 g/dL (12.0-16.0); Mean Corpuscular HGB CONC 33.2 g/dL (32.0-36.0); Mean Corpuscular Hemoglobin 29.3 pg (27.0-31.0); Mean Corpuscular Volume 88.2 fl (78.0-98.0); Mean Platelet Volume 9.5 fL (7.4-10.4); Platelet Count 397 10x3/uL (130-400); Red Blood Cell (RBC) Count 3.72 mill/uL (4.20-5.40)
[2023-05-28 16:51] LABS: Anion Gap 14 mmol/L (10-20); BUN (Urea Nitrogen) 30 mg/dL (9.8-20.1); Calc. Creatinine Clearance 0 mL/min (70-130); Calcium 9.2 mg/dL (7.8-10.44); Carbon Dioxide 17 mmol/L (22-29); Chloride 107 mmol/L (98-107); Estimated GFR 49; Glucose 103 mg/dL (70-105); Potassium 4.7 mmol/L (3.5-5.1); Sodium 133 mmol/L (136-145)
[2023-05-28 16:52] LABS: ALT (SGPT) 35 U/L (8-55); AST (SGOT) 26 U/L (5-34); Alkaline Phosphatase 145 U/L (40-110); Bilirubin, Total 0.3 mg/dL (0.2-1.2); Globulin 4.1 g/dL (2.4-3.5); Protein, Total 8.1 g/dL (6.0-8.3)
== END 2023-05-28 18:12 | disposition home or self-care (01) ==
LOC: ERS 13:26
DX: B34.9 Viral infection, unspecified (principal); I12.9 Hypertensive chronic kidney disease with stage 1 through stage 4 chronic kidney disease, or unspecified chronic kidney disease; E11.22 Type 2 diabetes mellitus with diabetic chronic kidney disease; N18.30 Chronic kidney disease, stage 3 unspecified
CPT/HCPCS: 0240U; 71045; 80053; 83605; 83880; 85025; 85379; 93005; 36415

== ENCOUNTER 2023-09-04 10:50 | Day surgery (SDC) | payer MEDICARE, MEDICAID ==
[2023-09-03 10:19] VITALS: BMI 21.8
[2023-09-04] MEDS ORDERED: PROPOFOL 20 ML ONE ×2 (13:23→13:50)
[2023-09-04] MEDS ORDERED: Ketamine In 0.9 % NaCl 50 MG/5 ML SYRINGE ONE (13:25)
== END 2023-09-04 15:30 | disposition home or self-care (01) ==
LOC: SDC 10:50
PROVIDERS: ATTEND Internal Medicine Gastroenterology
PROC: 0DBG8ZX Excision of Left Large Intestine, Via Natural or Artificial Opening Endoscopic, Diagnostic (ICD-10-PCS; principal; 2023-09-04)
PROC: 0DBF8ZX Excision of Right Large Intestine, Via Natural or Artificial Opening Endoscopic, Diagnostic (ICD-10-PCS; 2023-09-04)
PROC: 0DB68ZX Excision of Stomach, Via Natural or Artificial Opening Endoscopic, Diagnostic (ICD-10-PCS; 2023-09-04)
DX: K29.80 Duodenitis without bleeding (principal); K63.89 Other specified diseases of intestine; K21.9 Gastro-esophageal reflux disease without esophagitis; K52.9 Noninfective gastroenteritis and colitis, unspecified; F41.9 Anxiety disorder, unspecified; J45.909 Unspecified asthma, uncomplicated; J44.9 Chronic obstructive pulmonary disease, unspecified; E11.9 Type 2 diabetes mellitus without complications; I10 Essential (primary) hypertension; E89.0 Postprocedural hypothyroidism; E78.00 Pure hypercholesterolemia, unspecified; Z98.41 Cataract extraction status, right eye; Z96.642 Presence of left artificial hip joint; Z90.89 Acquired absence of other organs; Z98.890 Other specified postprocedural states; Z79.82 Long term (current) use of aspirin; Z79.890 Hormone replacement therapy; Z79.899 Other long term (current) drug therapy; I42.8 Other cardiomyopathies
CPT/HCPCS: 36415; 36416; 80048; 88305; J2704; J3490

== ENCOUNTER 2023-10-21 08:51 | Outpatient (CLI) | payer MEDICARE, MEDICAID | END 2023-10-21 08:52 | disposition home or self-care (01) | LOC: RAD 08:51 | PROVIDERS: ATTEND Internal Medicine Critical Care Medicine | DX: R06.00 Dyspnea, unspecified (principal) | CPT/HCPCS: 71046 ==

== ENCOUNTER 2024-03-04 11:59 | Emergency (ER) | payer MEDICARE, MEDICAID ==
[2024-03-04 13:36] LABS: Hematocrit 34.9 % (36.0-47.0); Hemoglobin 11.2 g/dL (12.0-16.0); Mean Corpuscular HGB CONC 32.1 g/dL (32.0-36.0); Mean Corpuscular Hemoglobin 29.3 pg (27.0-31.0); Mean Corpuscular Volume 91.4 fL (78.0-98.0); Mean Platelet Volume 9.6 fL (7.4-10.4); Platelet Count 296 10x3/uL (130-400); RBC Distribution Width 14.6 % (11.5-14.5); Red Blood Cell (RBC) Count 3.82 mill/uL (4.20-5.40)
[2024-03-04 13:58] LABS: Anisocytosis SLIGHT = 6-15 cells HPF (0-5); Burr Cells SLIGHT = 2-5 cells HPF (0-1); Eosinophils 13 % (0-10); Large Platelets 1.9 % (0-5); Lymphocytes 41 % (21-51); Monocytes 7 % (0-10); Neutrophil 38 % (42-75); Nucleated RBC (Manual Ct) 1 % (0); Platelet Adequacy Comment Platelets Normal; Reactive Lymphocytes 2 % (0-10); Smudge Cells 9.7 %
[2024-03-04 14:01] LABS: ALT (SGPT) 25 U/L (8-55); AST (SGOT) 24 U/L (5-34); Albumin 3.7 g/dL (3.5-5.0); Alkaline Phosphatase 112 U/L (40-110); Anion Gap 9 mmol/L (10-20); BUN (Urea Nitrogen) 18 mg/dL (9.8-20.1); Bilirubin, Total 0.3 mg/dL (0.2-1.2); Calc. Creatinine Clearance 0 mL/min (70-130); Calcium 9.8 mg/dL (7.8-10.44); Carbon Dioxide 21 mmol/L (22-29); Chloride 114 mmol/L (98-107); Estimated GFR 67; Globulin 3.5 g/dL (2.4-3.5); Glucose 102 mg/dL (70-105); Potassium 4.1 mmol/L (3.5-5.1); Protein, Total 7.2 g/dL (6.0-8.3); Sodium 140 mmol/L (136-145)
== END 2024-03-04 16:36 | disposition home or self-care (01) ==
LOC: ERS 11:59
DX: J22 Unspecified acute lower respiratory infection (principal); I12.9 Hypertensive chronic kidney disease with stage 1 through stage 4 chronic kidney disease, or unspecified chronic kidney disease; N18.30 Chronic kidney disease, stage 3 unspecified; E11.22 Type 2 diabetes mellitus with diabetic chronic kidney disease; E78.5 Hyperlipidemia, unspecified; J45.909 Unspecified asthma, uncomplicated
CPT/HCPCS: 36416; 71045; 80053; 85025; 85379

== ENCOUNTER 2024-04-19 15:30 | Outpatient (CLI) | payer MEDICARE, MEDICAID | END 2024-04-19 15:31 | disposition home or self-care (01) | LOC: RAD 15:30 | PROVIDERS: ATTEND Internal Medicine Critical Care Medicine | DX: R06.00 Dyspnea, unspecified (principal) | CPT/HCPCS: 71046 ==

== ENCOUNTER 2024-06-07 07:09 | Emergency (ER) | payer MEDICARE, MEDICAID ==
[2024-06-07] MEDS ORDERED: Albuterol 2.5 MG (0.5 mL) NEB ONE (07:23)
[2024-06-07] MEDS ORDERED: methylPREDNISolone Sod Succ/PF 125 MG/2 ML VIAL ONE (07:24)
[2024-06-07] MEDS ORDERED: Ipratropium Bromide 2.5 ml Neb ONE (07:27)
== END 2024-06-07 08:09 | disposition home or self-care (01) ==
LOC: ERS 07:09
DX: R05.9 Cough, unspecified (principal); E11.9 Type 2 diabetes mellitus without complications; I12.9 Hypertensive chronic kidney disease with stage 1 through stage 4 chronic kidney disease, or unspecified chronic kidney disease; N18.30 Chronic kidney disease, stage 3 unspecified
CPT/HCPCS: 71046; 87428; 96372; 99283; J2919; J7644; J7611

== ENCOUNTER 2025-02-01 15:09 | Outpatient (CLI) | payer MEDICARE, MEDICAID ==
[2025-02-01 16:35] LABS: #Basophils 0.06 10x3/uL (0.0-0.2); #Eosinophils 0.33 10x3/uL (0.0-0.7); #Monocytes 0.68 10x3/uL (0.11-0.59); #Neutrophils 6.02 10x3/uL (1.40-6.50); %Basophils 0.6 % (0.0-1.0); %Eosinophils 3.1 % (0.0-10.0); %Lymphocytes 34.1 % (21.0-51.0); %Monocytes 6.3 % (0.0-10.0); %Neutrophils 55.7 % (42.0-75.0); Hematocrit 41.8 % (36.0-47.0); Hemoglobin 13.3 g/dL (12.0-16.0); Mean Corpuscular Hemoglobin 28.2 pg (27.0-31.0); Mean Corpuscular Volume 88.7 fL (78.0-98.0); Platelet Count 407 10x3/uL (130-400); Red Blood Cell (RBC) Count 4.71 mill/uL (4.20-5.40); White Blood Cell (WBC) Count 10.79 10x3/uL (4.8-10.8)
[2025-02-01 16:55] LABS: Anion Gap 17 mmol/L (10-20); BUN (Urea Nitrogen) 20 mg/dL (9.8-20.1); Calc. Creatinine Clearance 0 mL/min (70-130); Calcium 10.0 mg/dL (7.8-10.44); Carbon Dioxide 20 mmol/L (22-29); Chloride 110 mmol/L (98-107); Glucose 161 mg/dL (70-105); Potassium 3.7 mmol/L (3.5-5.1); Sodium 143 mmol/L (136-145)
== END 2025-02-01 15:10 | disposition home or self-care (01) ==
LOC: LABBT 15:09
PROVIDERS: ATTEND Orthopaedic Surgery
DX: Z01.818 Encounter for other preprocedural examination (principal); S82.841A Displaced bimalleolar fracture of right lower leg, initial encounter for closed fracture
CPT/HCPCS: 71046; 80048; 85025; 93005; 93010

== ENCOUNTER 2025-02-03 07:35 | Day surgery (SDC) | payer MEDICARE, MEDICAID ==
[2025-02-01 15:20] VITALS: BMI 26.2
[2025-02-03] MEDS ORDERED: Ropivacaine 0.5% HCl/PF (150 MG/30 ML VIAL) ONE (09:40)
[2025-02-03] MEDS ORDERED: PROPOFOL 20 ML ONE (10:46)
[2025-02-03] MEDS ORDERED: Lidocaine 1% PF 5 ML VIAL ONE (10:47)
[2025-02-03] MEDS ORDERED: Ondansetron PF 4 MG/2 ML Vial ONE (10:47)
[2025-02-03] MEDS ORDERED: CEFAZOLIN 2 GM VIAL ONE (10:49)
[2025-02-03] MEDS ORDERED: fentaNYL PF 100 MCG/2 ML SYRINGE ONE (11:22)
[2025-02-03] MEDS ORDERED: HYDROmorphone 0.5 MG/0.5 ML SYRINGE ONE (13:38)
== END 2025-02-03 15:41 | disposition home or self-care (01) ==
LOC: SDC 07:35
PROVIDERS: ATTEND Orthopaedic Surgery
PROC: 0QSG04Z Reposition Right Tibia with Internal Fixation Device, Open Approach (ICD-10-PCS; principal; 2025-02-03)
PROC: 0QSJ0ZZ Reposition Right Fibula, Open Approach (ICD-10-PCS; 2025-02-03)
DX: S82.841A Displaced bimalleolar fracture of right lower leg, initial encounter for closed fracture (principal); I10 Essential (primary) hypertension; K21.9 Gastro-esophageal reflux disease without esophagitis; E11.9 Type 2 diabetes mellitus without complications; E78.00 Pure hypercholesterolemia, unspecified; Z90.49 Acquired absence of other specified parts of digestive tract; Z88.8 Allergy status to other drugs, medicaments and biological substances; Z91.018 Allergy to other foods; Z79.84 Long term (current) use of oral hypoglycemic drugs; Z79.899 Other long term (current) drug therapy; X58.XXXA Exposure to other specified factors, initial encounter
CPT/HCPCS: 27814; 73610; C1713 ×7; J0166; J1171; J2250; J2405; J2704; J2795; J3010